=== PATIENT | female | born 1985 | race Caucasian/White ===

== ENCOUNTER 2017-05-06 19:09 | Emergency (ER) | payer MEDICAID ==
[~2017-05-06] VITALS: Ht 165.1 cm; Wt 104.3 kg
[2017-05-06] MEDS ORDERED: cloNIDine HCL 0.1 MG TAB ONE (19:43)
[2017-05-06] MEDS ORDERED: cloNIDine HCL 0.1 MG TAB PO ONE ×2 (20:00→21:30)
[2017-05-06 20:03] LABS: Urine Pregnacy Test Negative (Negative)
[2017-05-06 20:19] LABS: Urine Bacteria NONE SEEN /hpf (None Seen); Urine Blood 3+ /uL (Negative); Urine Specific Gravity 1.016 (1.001-1.035); Urine WBC 17 /hpf (0 - 5)
[2017-05-06 20:25] LABS: Basophils # (auto) 0.1 uL; Hemoglobin 13.6 g/dL (12.2-16.2); Lymphocytes # (auto) 3.3 uL; Monocytes # (auto) 0.7 uL
[2017-05-06 20:28] LABS: Basophils % (auto) 0.9 % (0.0-2.0); Eosinophils # (auto) 0.2 uL; Eosinophils % (auto) 2.1 % (0.0-7.0); Hematocrit 40.2 % (36.0-46.0); Lymphocytes % (auto) 29.5 % (10.0-50.0); Mean Corpuscular Hemoglobin 31.1 pg (28.0-32.0); Mean Corpuscular Hgb Conc. 33.9 g/dL (32.0-36.0); Mean Corpuscular Volume 91.8 fL (80.0-100.0); Monocytes % (auto) 5.9 % (0.0-12.0); Neutrophils # (auto) 6.9 uL; Neutrophils % (auto) 61.6 % (37.0-80.0); Platelet Count (auto) 490 10^3/uL (140-450); Red Blood Cells 4.38 10^6/uL (4.0-5.20); Red Cell Distribution Width 14.1 % (11.8-14.3); White Blood Cell 11.2 10^3/uL (4.4-10.8)
[2017-05-06 20:29] LABS: Alcohol, Urine < 3.0 mg/dL (0-5); Amphetamine Screen, Urine NEGATIVE (NEGATIVE); Barbiturate Scree,Urine NEGATIVE (NEGATIVE); Benzodiazephine Screen, Urine NEGATIVE (NEGATIVE); Cannabinoid Screen, Urine NEGATIVE (NEGATIVE); Cocaine Screen, Urine NEGATIVE (NEGATIVE); Opiate Scree,Urine NEGATIVE (NEGATIVE); Phencyclidine Screen, Urine NEGATIVE (NEGATIVE)
[2017-05-06 20:49] LABS: Alanine Aminotransferase 89 U/L (13-56); Albumin 3.6 g/dL (3.4-5.0); Alkaline Phosphatase 96 U/L (45-117); Anion Gap 10 (5-15); Aspartate Aminotransferase 68 U/L (15-37); BUN/Creatinine Ratio 18.8; Bilirubin, Total 0.1 mg/dL (0.2-1.0); Blood Urea Nitrogen 12 mg/dL (7-18); Calcium 9.2 mg/dL (8.5-10.1); Carbon Dioxide 24 mmol/L (21-32); Chloride 107 mmol/L (98-107); GFR African American 140 mL/min; GFR Non-African American 116 mL/min; Glucose 97 mg/dL (74-106); Potassium 3.9 mmol/L (3.5-5.1); Sodium 141 mmol/L (136-145); Total Protein 7.8 g/dL (6.4-8.2)
[2017-05-06] MEDS ORDERED: SODIUM CHLORIDE 0.9% 1,000 ML IV ONE (21:30)
[2017-05-06] MEDS ORDERED: ONDANSETRON HCL 4 MG/2 ML VIAL IV ONE (21:30)
[2017-05-06] MEDS ORDERED: HYDROmorphone HCL 2 MG/ML VL IM ONE (21:30)
[2017-05-06] MEDS ORDERED: cefTRIAXone 1GM/50ML D5W 50 ML IV ONE (21:30)
[2017-05-06 21:35] VITALS: BP 153/109
== END 2017-05-06 23:43 | disposition home or self-care (01) ==
LOC: ER 19:09
DX: I10 Essential (primary) hypertension (principal); N39.0 Urinary tract infection, site not specified; J02.9 Acute pharyngitis, unspecified; R51 Headache; F17.210 Nicotine dependence, cigarettes, uncomplicated
CPT/HCPCS: 36415; 71020; 80053; 80307; 81001; 81025; 83880; 84443; 84484; 85025; 93005; 96365; 96372; 96375; 99285; J0696; J1170; J2405; J7030

== ENCOUNTER 2019-12-23 10:44 | Emergency (ER) | payer MEDICAID ==
[~2019-12-23] VITALS: Ht 165.1 cm; Wt 104.3 kg
[2019-12-23] MEDS ORDERED: cloNIDine HCL 0.1 MG TAB PO ONE ×2 (11:00→13:15)
[2019-12-23 11:23] LABS: Basophils # (auto) 0.1 10 ^3/uL (0-0.2); Eosinophils # (auto) 0.3 10 ^3/uL (0-0.8); Eosinophils % (auto) 2.8 % (0.0-7.0); Lymphocytes # (auto) 3.8 10 ^3/uL (0.4-5.4); Neutrophils # (auto) 5.7 10 ^3/uL (1.6-8.6); White Blood Cell 10.4 10^3/uL (4.4-10.8)
[2019-12-23 11:25] LABS: Basophils % (auto) 0.7 % (0.0-2.0); Hemoglobin 15.3 g/dL (12.2-16.2); Lymphocytes % (auto) 36.2 % (10.0-50.0); Mean Corpuscular Hemoglobin 30.2 pg (28.0-32.0); Mean Corpuscular Hgb Conc. 33.2 g/dL (32.0-36.0); Mean Corpuscular Volume 90.9 fL (80.0-100.0); Monocytes # (auto) 0.6 10 ^3/uL (0-1.3); Monocytes % (auto) 5.5 % (0.0-12.0); Neutrophils % (auto) 54.8 % (37.0-80.0); Platelet Count (auto) 646 10^3/uL (140-450); Red Blood Cells 5.06 10^6/uL (4.0-5.20); Red Cell Distribution Width 13.8 % (11.8-14.3)
[2019-12-23 11:43] LABS: Albumin 4.3 g/dL (3.4-5.0); Anion Gap 6 (5-15); Blood Urea Nitrogen 13 mg/dL (7-18); Calcium 10.3 mg/dL (8.5-10.1); Carbon Dioxide 26 mmol/L (21-32); Chloride 107 mmol/L (98-107); Glucose 105 mg/dL (74-106); Sodium 139 mmol/L (136-145)
[2019-12-23 11:56] LABS: Alanine Aminotransferase 30 U/L (13-56); Alkaline Phosphatase 89 U/L (45-117); Aspartate Aminotransferase 15 U/L (15-37); BUN/Creatinine Ratio 15.1; Bilirubin, Total 0.2 mg/dL (0.2-1.0); GFR African American 98 mL/min; GFR Non-African American 81 mL/min; Total Protein 8.5 g/dL (6.4-8.2)
[2019-12-23 12:24] LABS: Urine Bacteria FEW /hpf (None Seen); Urine Blood Negative /uL (Negative); Urine Mucus FEW (None Seen); Urine Specific Gravity 1.023 (1.001-1.035); Urine WBC 2 /hpf (0 - 5)
[2019-12-23] MEDS ORDERED: cloNIDine HCL 0.1 MG TAB ONE (13:10)
[2019-12-23] MEDS ORDERED: ACETAMINOPHEN 325 MG TAB PO ONE ×2 (13:11→13:15)
[2019-12-23 14:00] VITALS: BP 155/90
== END 2019-12-23 14:05 | disposition home or self-care (01) ==
LOC: ER 10:44
DX: I16.0 Hypertensive urgency (principal); I10 Essential (primary) hypertension; F17.210 Nicotine dependence, cigarettes, uncomplicated
CPT/HCPCS: 36415; 70450; 80053; 81001; 81025; 84484; 85025; 93005

== ENCOUNTER 2023-04-20 00:25 | Inpatient (IN) | payer MEDICAID ==
[~2023-04-20] VITALS: Ht 165.1 cm; Wt 101.8 kg
[2023-04-20 01:32] LABS: Albumin 3.9 g/dL (3.2-4.8); Alkaline Phosphatase 97 U/L (46-116); Anion Gap 5 (5-15); Aspartate Aminotransferase 21 U/L (13-40); BUN/Creatinine Ratio 9.8 (10.0-20.0); Bilirubin, Total 0.3 mg/dL (0.2-1.0); Blood Urea Nitrogen 28 mg/dL (9-23); Calcium 9.6 mg/dL (8.7-10.4); Carbon Dioxide 30 mmol/L (20-30); Chloride 101 mmol/L (98-107); Sodium 136 mmol/L (136-145); Total Protein 6.6 g/dL (5.7-8.2)
[2023-04-20 01:37] LABS: Alanine Aminotransferase 9 U/L (7-40)
[2023-04-20 01:39] LABS: Potassium 2.9 mmol/L (3.5-5.1)
[2023-04-20 01:48] LABS: Glucose 124 mg/dL (74-106)
[2023-04-20 02:01] LABS: Basophils # (auto) 0.1 10 ^3/uL (0-0.2); Basophils % (auto) 0.4 % (0.0-2.0); Eosinophils # (auto) 0.2 10 ^3/uL (0-0.8); Eosinophils % (auto) 1.3 % (0.0-7.0); Hematocrit 41.1 % (36.0-46.0); Hemoglobin 13.6 g/dL (12.2-16.2); Lymphocytes # (auto) 3.3 10 ^3/uL (0.4-5.4); Lymphocytes % (auto) 24.2 % (10.0-50.0); Mean Corpuscular Hemoglobin 30.4 pg (28.0-32.0); Mean Corpuscular Hgb Conc. 33.1 g/dL (32.0-36.0); Mean Corpuscular Volume 91.9 fL (80.0-100.0); Monocytes # (auto) 0.8 10 ^3/uL (0-1.3); Monocytes % (auto) 5.7 % (0.0-12.0); Neutrophils # (auto) 9.4 10 ^3/uL (1.6-8.6); Neutrophils % (auto) 68.4 % (37.0-80.0); Nucleated Red Blood Cells % 0.2 %; Red Blood Cells 4.48 10^6/uL (4.0-5.20); Red Cell Distribution Width 16.3 % (11.8-14.3); White Blood Cell 13.7 10^3/uL (4.4-10.8)
[2023-04-20] MEDS ORDERED: POTASSIUM EFFERVESENT TAB 25 MEQ GT ONE (02:30)
[2023-04-20] MEDS ORDERED: MORPHINE SULFATE 4 MG/ML SYR/VIAL IV ONE (02:45)
[2023-04-20 03:27] VITALS: PULSE 94; RESP 18; O2SAT 97
[2023-04-20] MEDS ORDERED: ONDANSETRON HCL 4 MG/2 ML VIAL IV ONE (03:45)
[2023-04-20 08:00] VITALS: PULSE 84; RESP 14; O2SAT 97
[2023-04-20] MEDS ORDERED: DOCUSATE SOD 100 MG CAP PO PRN (10:30)
[2023-04-20] MEDS: SODIUM CHLORIDE 0.9% 1,000 ML IV SCH ×3 (11:06→20:08)
[2023-04-20] MEDS: cefTRIAXone 1GM/50ML D5W 50 ML IV SCH (12:11)
[2023-04-20] MEDS: MORPHINE SULFATE INJ 2 MG/ml SYRG IV PRN ×2 (12:12→23:15)
[2023-04-20] MEDS: DOXYCYCLINE 100MG/250ML 250 ML IV SCH (12:38)
[2023-04-20] MEDS ORDERED: ENOXAPARIN SOD 100 MG/1 ML SYRINGE SC SCH (14:07)
[2023-04-20 15:46] LABS: Magnesium 1.8 mg/dL (1.6-2.6)
[2023-04-20 15:48] LABS: Phosphorus 5.3 mg/dL (2.4-5.1)
[2023-04-20] MEDS ORDERED: LORazepam 2MG/ML-1ML VIAL IV PRN (19:15)
[2023-04-20 19:29] VITALS: PULSE 99; RESP 17; O2SAT 99
[2023-04-20] MEDS: METOPROLOL TARTRATE 25 MG TAB PO SCH (23:14)
[2023-04-20] MEDS: ONDANSETRON HCL 4 MG/2 ML VIAL IV PRN (23:14)
[2023-04-21] VITALS (10 sets, daily range): BP systolic 135–192; BP diastolic 92–110; PULSE 65–119; RESP 17–21; TEMP 97.8–98.4; O2SAT 97–100
[2023-04-21] MEDS: DOXYCYCLINE 100MG/250ML 250 ML IV SCH (00:53)
[2023-04-21] MEDS: ONDANSETRON HCL 4 MG/2 ML VIAL IV PRN (04:32)
[2023-04-21] MEDS: MORPHINE SULFATE INJ 2 MG/ml SYRG IV PRN ×2 (04:33→17:06)
[2023-04-21 05:38] LABS: Basophils # (auto) 0.1 10 ^3/uL (0-0.2); Basophils % (auto) 0.5 % (0.0-2.0); Eosinophils # (auto) 0.2 10 ^3/uL (0-0.8); Eosinophils % (auto) 1.3 % (0.0-7.0); Hematocrit 34.4 % (36.0-46.0); Hemoglobin 11.4 g/dL (12.2-16.2); Lymphocytes # (auto) 3.7 10 ^3/uL (0.4-5.4); Lymphocytes % (auto) 27.8 % (10.0-50.0); Mean Corpuscular Hemoglobin 31.2 pg (28.0-32.0); Mean Corpuscular Hgb Conc. 33.2 g/dL (32.0-36.0); Mean Corpuscular Volume 93.9 fL (80.0-100.0); Monocytes # (auto) 0.6 10 ^3/uL (0-1.3); Monocytes % (auto) 4.5 % (0.0-12.0); Neutrophils # (auto) 8.8 10 ^3/uL (1.6-8.6); Neutrophils % (auto) 65.9 % (37.0-80.0); Nucleated Red Blood Cells % 0.1 %; Red Blood Cells 3.66 10^6/uL (4.0-5.20); White Blood Cell 13.4 10^3/uL (4.4-10.8)
[2023-04-21 05:54] LABS: Alanine Aminotransferase 14 U/L (7-40); Albumin 3.2 g/dL (3.2-4.8); Alkaline Phosphatase 81 U/L (46-116); Anion Gap 8 (5-15); Aspartate Aminotransferase 9 U/L (13-40); BUN/Creatinine Ratio 11.9 (10.0-20.0); Bilirubin, Total 0.3 mg/dL (0.2-1.0); Calcium 8.5 mg/dL (8.5-10.1); Carbon Dioxide 28 mmol/L (20-30); Chloride 103 mmol/L (98-107); Cholesterol 193 mg/dL (< 200); Glucose 108 mg/dL (74-106); HDL Cholesterol 29 mg/dL (40-59); LDL Cholesterol 114 mg/dL (< 100); Potassium 3.3 mmol/L (3.5-5.1); Sodium 139 mmol/L (136-145); Total Protein 5.3 g/dL (5.7-8.2); Triglycerides 258 mg/dL (< 150)
[2023-04-21 06:08] LABS: Blood Urea Nitrogen 47 mg/dL (9-23)
[2023-04-21] MEDS ORDERED: HEPARIN SODIUM (PORCINE) 5000 UNITS/ML 1ML VIAL SC ONE (06:45)
[2023-04-21 07:06] LABS: RPR Non Reactive (Non Reactive)
[2023-04-21] MEDS ORDERED: cefTRIAXone 1GM/50ML D5W 50 ML IV SCH (09:00)
[2023-04-21] MEDS ORDERED: ATOR20TA50 PO (09:36)
[2023-04-21] MEDS ORDERED: METO-159 PO (09:36)
[2023-04-21] MEDS ORDERED: HYDR-4798 PO (09:36)
[2023-04-21] MEDS ORDERED: TORS20TA19 PO (09:36)
[2023-04-21] MEDS ORDERED: GABA-1250 PO (09:36)
[2023-04-21] MEDS ORDERED: LOSA100T58 PO (09:36)
[2023-04-21 09:43] LABS: Urine Bacteria FEW /hpf (None Seen); Urine Blood 2+ /uL (Negative); Urine Clarity HAZY (Clear); Urine Color Colorless (Yellow); Urine Protein, UAD 2+ (Negative); Urine Specific Gravity 1.012 (1.001-1.035); Urine Urobilinogen Normal (Negative); Urine WBC 13 /hpf (0 - 5); Urine pH 5.5 (5.0-8.0)
[2023-04-21] MEDS: OXYMETAZOLINE HCL 0.05 % NASAL SPRAY 15ML EACHNOSTRI SCH ×2 (10:00→22:29)
[2023-04-21] MEDS ORDERED: AZITHROMYCIN 500MG/ 250ML 250 ML IV SCH (10:00)
[2023-04-21] MEDS ORDERED: POTASSIUM EFFERVESENT TAB 25 MEQ PO ONE (10:15)
[2023-04-21] MEDS: POLYETHYLENE GLYCOL 17 GM PWDR PO SCH (10:27)
[2023-04-21] MEDS: METOPROLOL TARTRATE 25 MG TAB PO SCH ×2 (10:27→21:41)
[2023-04-21] MEDS: ASPirin 81 mg TAB PO SCH (10:27)
[2023-04-21 10:41] LABS: Amphetamine Screen, Urine Neg (NEGATIVE); Barbiturate Scree,Urine Neg (NEGATIVE); Benzodiazephine Screen, Urine Neg (NEGATIVE); Cocaine Screen, Urine Neg (NEGATIVE); Opiate Scree,Urine Pos (NEGATIVE); Phencyclidine Screen, Urine Neg (NEGATIVE)
[2023-04-21 10:42] LABS: Cannabinoid Screen, Urine Neg (NEGATIVE)
[2023-04-21 10:43] LABS: Triglycerides 251 mg/dL (< 150)
[2023-04-21 10:44] LABS: LDL Cholesterol 113 mg/dL (< 100)
[2023-04-21 10:45] LABS: Cholesterol 189 mg/dL (< 200); HDL Cholesterol 29 mg/dL (40-59)
[2023-04-21 11:11] LABS: Protein, Urine 126.9 mg/dL (0.0-11.9)
[2023-04-21 11:13] LABS: Creatinine, Urine 89.37 mg/dL (30.0-125.0); Urine Protein/Creatinine Ratio 1.42
[2023-04-21] MEDS: HYDROcodone-ACET 10/325MG TAB PO PRN ×2 (11:54→18:04)
[2023-04-21] MEDS ORDERED: hydrALAZINE HCL 20 MG/ML VL IV PRN (14:45)
[2023-04-21] MEDS: SODIUM CHLORIDE 0.9% 1,000 ML IV SCH ×2 (15:26→22:30)
[2023-04-21] MEDS: hydrALAZINE HCL 20 MG/ML VL IV PRN ×2 (15:29→21:41)
[2023-04-21] MEDS: cefTRIAXone 1GM/50ML D5W 50 ML IV SCH (15:30)
[2023-04-21] MEDS ORDERED: amLODIPine BESYLATE 5 MG TAB PO ONE (15:45)
[2023-04-21] MEDS: HEPARIN SODIUM (PORCINE) 5000 UNITS/ML 1ML VIAL SC SCH (20:19)
[2023-04-21] MEDS: ATORVASTATIN 20 MG TAB PO SCH (21:41)
[2023-04-21] MEDS: TEMAZEPAM 15 MG CAP PO PRN (23:36)
[2023-04-22] VITALS (9 sets, daily range): BP systolic 171–198; BP diastolic 95–114; PULSE 79–114; RESP 18–20; TEMP 98.1–98.6; O2SAT 95–97
[2023-04-22] MEDS ORDERED: amLODIPine BESYLATE 5 MG TAB PO ONE
[2023-04-22] MEDS: HYDROcodone-ACET 10/325MG TAB PO PRN ×3 (01:31→18:51)
[2023-04-22] MEDS: hydrALAZINE HCL 20 MG/ML VL IV PRN (05:17)
[2023-04-22 05:22] LABS: Basophils # (auto) 0.1 10 ^3/uL (0-0.2); Basophils % (auto) 0.5 % (0.0-2.0); Eosinophils # (auto) 0.1 10 ^3/uL (0-0.8); Eosinophils % (auto) 0.9 % (0.0-7.0); Hemoglobin 12.1 g/dL (12.2-16.2); Lymphocytes # (auto) 2.9 10 ^3/uL (0.4-5.4); Mean Corpuscular Hemoglobin 31.2 pg (28.0-32.0); Mean Corpuscular Hgb Conc. 33.7 g/dL (32.0-36.0); Mean Corpuscular Volume 92.5 fL (80.0-100.0); Monocytes # (auto) 0.6 10 ^3/uL (0-1.3); Monocytes % (auto) 5.3 % (0.0-12.0); Neutrophils # (auto) 7.8 10 ^3/uL (1.6-8.6); Neutrophils % (auto) 68.3 % (37.0-80.0); Red Blood Cells 3.89 10^6/uL (4.0-5.20); Red Cell Distribution Width 16.6 % (11.8-14.3); White Blood Cell 11.4 10^3/uL (4.4-10.8)
[2023-04-22 05:30] LABS: Chloride 105 mmol/L (98-107); Potassium 3.3 mmol/L (3.5-5.1); Sodium 140 mmol/L (136-145)
[2023-04-22 05:31] LABS: Anion Gap 8 (5-15); Calcium 9.5 mg/dL (8.7-10.4); Carbon Dioxide 27 mmol/L (20-30)
[2023-04-22 05:36] LABS: BUN/Creatinine Ratio 11.7 (10.0-20.0); Glucose 105 mg/dL (74-106)
[2023-04-22 05:38] LABS: Blood Urea Nitrogen 34 mg/dL (9-23)
[2023-04-22] MEDS: HEPARIN SODIUM (PORCINE) 5000 UNITS/ML 1ML VIAL SC SCH ×2 (06:28→18:57)
[2023-04-22] MEDS: SODIUM CHLORIDE 0.9% 1,000 ML IV SCH ×2 (07:45→14:30)
[2023-04-22 08:06] LABS: Complement C3 208 mg/dL (82-167); Haptoglobin 75 mg/dL (33-278)
[2023-04-22] MEDS: METOPROLOL TARTRATE 25 MG TAB PO SCH ×2 (08:36→22:05)
[2023-04-22] MEDS ORDERED: ENOXAPARIN SOD 40 MG/0.4 ML SYRINGE SC SCH (10:00)
[2023-04-22] MEDS: MORPHINE SULFATE INJ 2 MG/ml SYRG IV PRN ×2 (10:00→22:01)
[2023-04-22] MEDS: OXYMETAZOLINE HCL 0.05 % NASAL SPRAY 15ML EACHNOSTRI SCH ×2 (10:00→22:00)
[2023-04-22] MEDS: POLYETHYLENE GLYCOL 17 GM PWDR PO SCH (10:00)
[2023-04-22] MEDS ORDERED: amLODIPine BESYLATE 5 MG TAB PO SCH ×2 (10:00)
[2023-04-22] MEDS: amLODIPine BESYLATE 5 MG TAB PO SCH (10:01)
[2023-04-22] MEDS: ASPirin 81 mg TAB PO SCH (10:01)
[2023-04-22] MEDS ORDERED: hydrALAZINE HCL 25 MG TAB PO PRN ×2 (10:45→13:30)
[2023-04-22] MEDS ORDERED: ERGOCALCIFEROL 50,000 UNIT(1.25MG) CAP PO SCH (10:45)
[2023-04-22 11:08] LABS: Anti-Nuclear Antibody Direct Negative (Negative)
[2023-04-22] MEDS: cefTRIAXone 1GM/50ML D5W 50 ML IV SCH (11:43)
[2023-04-22] MEDS ORDERED: hydrALAZINE HCL 25 MG TAB PO ONE ×2 (14:30→17:45)
[2023-04-22] MEDS: cloNIDine HCL 0.1 MG TAB PO PRN ×2 (16:29→22:03)
[2023-04-22] MEDS ORDERED: hydrALAZINE HCL 20 MG/ML VL IV ONE (17:45)
[2023-04-22] MEDS: hydrALAZINE HCL 25 MG TAB PO SCH (22:04)
[2023-04-22] MEDS: ATORVASTATIN 20 MG TAB PO SCH (22:04)
[2023-04-23] MEDS: hydrALAZINE HCL 20 MG/ML VL IV PRN (02:49)
[2023-04-23] MEDS: MORPHINE SULFATE INJ 2 MG/ml SYRG IV PRN ×4 (03:26→21:12)
[2023-04-23 05:00] VITALS: BP 160/96; PULSE 85; RESP 17; TEMP 97.9; O2SAT 95
[2023-04-23] MEDS: hydrALAZINE HCL 25 MG TAB PO SCH ×3 (05:57→22:57)
[2023-04-23] MEDS: HEPARIN SODIUM (PORCINE) 5000 UNITS/ML 1ML VIAL SC SCH ×2 (06:00→18:49)
[2023-04-23 08:00] VITALS: BP 178/108; PULSE 88; PULSE 93; PULSE 98; RESP 18; TEMP 97.9; O2SAT 100; O2SAT 98
[2023-04-23 09:17] LABS: Alanine Aminotransferase 14 U/L (7-40); Albumin 4.2 g/dL (3.2-4.8); Alkaline Phosphatase 97 U/L (46-116); Anion Gap 8 (5-15); Aspartate Aminotransferase 20 U/L (13-40); BUN/Creatinine Ratio 11.1 (10.0-20.0); Blood Urea Nitrogen 25 mg/dL (9-23); Calcium 9.9 mg/dL (8.5-10.1); Carbon Dioxide 26 mmol/L (20-30); Chloride 107 mmol/L (98-107); Glucose 109 mg/dL (74-106); Potassium 3.6 mmol/L (3.5-5.1); Sodium 141 mmol/L (136-145)
[2023-04-23 09:18] LABS: Bilirubin, Total 0.6 mg/dL (0.2-1.0)
[2023-04-23] MEDS: POLYETHYLENE GLYCOL 17 GM PWDR PO SCH (09:23)
[2023-04-23] MEDS: ASPirin 81 mg TAB PO SCH (09:24)
[2023-04-23] MEDS: METOPROLOL TARTRATE 25 MG TAB PO SCH (09:24)
[2023-04-23] MEDS: amLODIPine BESYLATE 5 MG TAB PO SCH (09:25)
[2023-04-23] MEDS: OXYMETAZOLINE HCL 0.05 % NASAL SPRAY 15ML EACHNOSTRI SCH ×2 (10:00→22:58)
[2023-04-23] MEDS ORDERED: hydrALAZINE HCL 25 MG TAB PO SCH ×2 (10:45→12:00)
[2023-04-23] MEDS: HYDROcodone-ACET 10/325MG TAB PO PRN ×2 (11:15→17:33)
[2023-04-23] MEDS: cefTRIAXone 1GM/50ML D5W 50 ML IV SCH (11:20)
[2023-04-23] MEDS: SODIUM CHLORIDE 0.9% 1,000 ML IV SCH (11:20)
[2023-04-23] MEDS ORDERED: METOPROLOL TARTRATE 1MG/1ML-5ML VIAL IV ONE (12:30)
[2023-04-23 13:00] VITALS: BP 192/115; PULSE 79; RESP 18; TEMP 98.7; O2SAT 99
[2023-04-23 17:00] VITALS: BP 172/112; PULSE 101; RESP 18; TEMP 98.4; O2SAT 95
[2023-04-23 20:00] VITALS: PULSE 91; PULSE 95; RESP 17; O2SAT 93
[2023-04-23] MEDS: CLOPIDOGREL BISULFATE 75 MG TAB PO SCH (20:23)
[2023-04-23 22:00] VITALS: BP 180/99; PULSE 95; RESP 17; TEMP 98; O2SAT 93
[2023-04-23] MEDS: METOPROLOL TARTRATE 50 MG TAB PO SCH (22:50)
[2023-04-23] MEDS: ATORVASTATIN 20 MG TAB PO SCH (22:51)
[2023-04-24] VITALS (31 sets, daily range): BP systolic 134–211; BP diastolic 80–127; PULSE 77–116; RESP 12–23; TEMP 98–98.8; O2SAT 93–100
[2023-04-24] MEDS: hydrALAZINE HCL 25 MG TAB PO SCH ×3 (05:49→21:13)
[2023-04-24] MEDS: HEPARIN SODIUM (PORCINE) 5000 UNITS/ML 1ML VIAL SC SCH ×2 (05:50→18:59)
[2023-04-24] MEDS ORDERED: FLUMAZENIL 0.1 MG/ML INJ 10ML MDV IV ONE (08:34)
[2023-04-24] MEDS ORDERED: NALOXONE HCL 0.4 MG/ML VIAL ONE (08:34)
[2023-04-24] MEDS ORDERED: fentaNYL CITRATE 100 MCG/2 ML VL IV ONE ×5 (08:45→10:32)
[2023-04-24] MEDS ORDERED: LIDOCAINE VISCOUS 2% 15ML UD PO ONE (08:45)
[2023-04-24] MEDS ORDERED: MIDAZOLAM HCL 2MG/2ML 2ml VIAL (1mg/ml) IV ONE ×8 (08:45→10:35)
[2023-04-24 09:15] LABS: Hepatitis B Surface Antigen Negative (Negative)
[2023-04-24 09:36] LABS: Hepatitis C Antibody Negative (Negative)
[2023-04-24] MEDS: hydrALAZINE HCL 20 MG/ML VL IV PRN (09:42)
[2023-04-24] MEDS ORDERED: hydrALAZINE HCL 20 MG/ML VL ONE (09:58)
[2023-04-24] MEDS ORDERED: hydrALAZINE HCL 20 MG/ML VL IV ONE ×3 (09:59→10:24)
[2023-04-24] MEDS: OXYMETAZOLINE HCL 0.05 % NASAL SPRAY 15ML EACHNOSTRI SCH ×2 (10:00→21:15)
[2023-04-24] MEDS ORDERED: MIDAZOLAM HCL 2MG/2ML 2ml VIAL (1mg/ml) ONE ×5 (10:10→10:46)
[2023-04-24] MEDS ORDERED: fentaNYL CITRATE 100 MCG/2 ML VL ONE ×2 (10:21→10:40)
[2023-04-24] MEDS: cloNIDine HCL 0.1 MG TAB PO PRN (11:47)
[2023-04-24] MEDS: ASPirin 81 mg TAB PO SCH (12:41)
[2023-04-24] MEDS: METOPROLOL TARTRATE 50 MG TAB PO SCH ×2 (12:41→21:14)
[2023-04-24] MEDS: CLOPIDOGREL BISULFATE 75 MG TAB PO SCH (12:41)
[2023-04-24] MEDS: POLYETHYLENE GLYCOL 17 GM PWDR PO SCH (12:42)
[2023-04-24] MEDS: MORPHINE SULFATE INJ 2 MG/ml SYRG IV PRN ×2 (12:42→18:53)
[2023-04-24] MEDS: amLODIPine BESYLATE 5 MG TAB PO SCH (13:18)
[2023-04-24] MEDS: cefTRIAXone 1GM/50ML D5W 50 ML IV SCH (13:27)
[2023-04-24] MEDS ORDERED: cloNIDine HCL 0.1 MG TAB PO PRN (14:45)
[2023-04-24] MEDS: HYDROcodone-ACET 10/325MG TAB PO PRN ×2 (14:56→21:14)
[2023-04-24] MEDS: TEMAZEPAM 15 MG CAP PO PRN (21:14)
[2023-04-24] MEDS: ATORVASTATIN 20 MG TAB PO SCH (21:14)
[2023-04-25 05:00] VITALS: BP 146/83; PULSE 70; RESP 17; TEMP 98.2; O2SAT 97
[2023-04-25 06:03] LABS: Basophils # (auto) 0 10 ^3/uL (0-0.2); Basophils % (auto) 0.6 % (0.0-2.0); Eosinophils # (auto) 0.1 10 ^3/uL (0-0.8); Eosinophils % (auto) 1.8 % (0.0-7.0); Hemoglobin 12.2 g/dL (12.2-16.2); Lymphocytes # (auto) 3.7 10 ^3/uL (0.4-5.4); Lymphocytes % (auto) 49.4 % (10.0-50.0); Mean Corpuscular Hemoglobin 30.8 pg (28.0-32.0); Mean Corpuscular Hgb Conc. 32.8 g/dL (32.0-36.0); Mean Corpuscular Volume 93.9 fL (80.0-100.0); Monocytes # (auto) 0.5 10 ^3/uL (0-1.3); Monocytes % (auto) 7.3 % (0.0-12.0); Neutrophils # (auto) 3.1 10 ^3/uL (1.6-8.6); Neutrophils % (auto) 40.9 % (37.0-80.0); Red Blood Cells 3.94 10^6/uL (4.0-5.20); Red Cell Distribution Width 15.9 % (11.8-14.3); White Blood Cell 7.5 10^3/uL (4.4-10.8)
[2023-04-25] MEDS: HEPARIN SODIUM (PORCINE) 5000 UNITS/ML 1ML VIAL SC SCH (06:03)
[2023-04-25] MEDS: hydrALAZINE HCL 25 MG TAB PO SCH ×2 (06:03→15:07)
[2023-04-25 06:30] LABS: Calcium 9.4 mg/dL (8.7-10.4); Chloride 103 mmol/L (98-107); Potassium 3.5 mmol/L (3.5-5.1); Sodium 139 mmol/L (136-145)
[2023-04-25 06:31] LABS: Anion Gap 10 (5-15); Carbon Dioxide 26 mmol/L (20-30)
[2023-04-25 06:36] LABS: BUN/Creatinine Ratio 12.1 (10.0-20.0); Blood Urea Nitrogen 30 mg/dL (9-23); Glucose 93 mg/dL (74-106)
[2023-04-25] MEDS ORDERED: PROPOFOL 10 MG/ML 20 ML IV ONE ×2 (07:46→07:55)
[2023-04-25] MEDS ORDERED: LIDOCAINE 2% (LOCAL ANESTH.) PF 5ml SDV ONE (07:46)
[2023-04-25 08:00] VITALS: RESP 17
[2023-04-25 08:09] VITALS: PULSE 96; RESP 21; O2SAT 100
[2023-04-25] MEDS: HYDROcodone-ACET 10/325MG TAB PO PRN (09:18)
[2023-04-25] MEDS: ASPirin 81 mg TAB PO SCH (09:18)
[2023-04-25] MEDS: amLODIPine BESYLATE 5 MG TAB PO SCH (09:20)
[2023-04-25] MEDS: METOPROLOL TARTRATE 50 MG TAB PO SCH (09:20)
[2023-04-25] MEDS: CLOPIDOGREL BISULFATE 75 MG TAB PO SCH (09:20)
[2023-04-25] MEDS: POLYETHYLENE GLYCOL 17 GM PWDR PO SCH (09:21)
[2023-04-25] MEDS: OXYMETAZOLINE HCL 0.05 % NASAL SPRAY 15ML EACHNOSTRI SCH (10:00)
[2023-04-25 10:30] VITALS: BP 147/96; PULSE 68; RESP 16; TEMP 98.2; O2SAT 94
[2023-04-25] MEDS: MORPHINE SULFATE INJ 2 MG/ml SYRG IV PRN (10:53)
[2023-04-25] MEDS ORDERED: CLOP75TA70 PO (12:25)
[2023-04-25] MEDS ORDERED: ASPI-325 PO (12:25)
[2023-04-25] MEDS ORDERED: ATOR20TA50 PO (12:25)
[2023-04-25] MEDS ORDERED: AMLO1TAB23 PO (12:32)
[2023-04-25 13:00] VITALS: BP 150/95; PULSE 75; RESP 16; TEMP 98.1; O2SAT 97
[2023-04-25 15:51] LABS: Dilute Prothrombin Time(dPT) 36.2 sec (0.0-47.6); Lupus Interpretation Comment: (.); PTT-LA 40.9 sec (0.0-43.5); Thrombin Time 15.7 sec (0.0-23.0); dRVVT 42.2 sec (0.0-47.0)
[2023-04-25 16:06] LABS: Anti-Centromere B Antibody <0.2 AI (0.0-0.9); Anti-Jo-1 Antibody <0.2 AI (0.0-0.9); Anti-dsDNA Antibody 1 IU/mL (0-9); Antichromatin Antibody <0.2 AI (0.0-0.9); Antiscleroderma-70 Antibody <0.2 AI (0.0-0.9); RNP Antibody <0.2 AI (0.0-0.9); Sjogren's Anti-SS-A Antibody <0.2 AI (0.0-0.9); Sjogren's Anti-SS-B Antibody <0.2 AI (0.0-0.9); Smith Antibody <0.2 AI (0.0-0.9)
[2023-04-25 19:06] LABS: Anticardiolipin IgG Antibody <9 GPL U/mL (0-14); Anticardiolipin IgM Antibody <9 MPL U/mL (0-12)
[2023-04-26 13:07] LABS: Cytoplasmic (C-ANCA) <1:20 titer (Neg:<1:20); Perinuclear (P-ANCA) <1:20 titer (Neg:<1:20)
[2023-04-26 18:06] LABS: Antimyeloperoxidase (MPO) Ab <0.2 units (0.0-0.9); Antiproteinase 3 (PR-3) Ab <0.2 units (0.0-0.9)
== END 2023-04-25 15:30 | disposition home or self-care (01) | DRG 45 ==
LOC: EDBD 00:25 → ER 00:25 → TELE 10:36 → TELE-CENTR 04-21 08:11
PROVIDERS: ADMIT Nurse Practitioner Family; ATTEND Internal Medicine Pulmonary Disease
PROC: B246ZZ4 Ultrasonography of Right and Left Heart, Transesophageal (ICD-10-PCS; principal; 2023-04-25 07:45)
DX: I63.9 Cerebral infarction, unspecified (principal); N17.0 Acute kidney failure with tubular necrosis; I21.A1 Myocardial infarction type 2; G40.209 Localization-related (focal) (partial) symptomatic epilepsy and epileptic syndromes with complex partial seizures, not intractable, without status epilepticus; G81.94 Hemiplegia, unspecified affecting left nondominant side; R55 Syncope and collapse; I16.1 Hypertensive emergency; D72.829 Elevated white blood cell count, unspecified; E78.5 Hyperlipidemia, unspecified; E87.6 Hypokalemia; N18.9 Chronic kidney disease, unspecified; K59.00 Constipation, unspecified; F41.9 Anxiety disorder, unspecified; E03.9 Hypothyroidism, unspecified; E55.9 Vitamin D deficiency, unspecified; E66.01 Morbid (severe) obesity due to excess calories; F41.0 Panic disorder [episodic paroxysmal anxiety]; I12.9 Hypertensive chronic kidney disease with stage 1 through stage 4 chronic kidney disease, or unspecified chronic kidney disease; N39.0 Urinary tract infection, site not specified; Z68.37 Body mass index [BMI] 37.0-37.9, adult; Z82.3 Family history of stroke; Z82.49 Family history of ischemic heart disease and other diseases of the circulatory system; Z71.6 Tobacco abuse counseling; Z72.0 Tobacco use
CPT/HCPCS: 36415; 70450; 70551; 71045; 71250; 74176; 76775; 80048; 80053; 80061; 80307; 81001; 81241; 82306; 82550; 82570; 82607; 83010; 83036; 83516; 83520; 83735; 83880; 83970; 84100; 84132; 84156; 84300; 84443; 84484; 84702; 85025; 85301; 85302; 85305; 85306; 85379; 85613; 85670; 85705; 85732; 86038; 86147; 86160; 86225; 86235; 86256; 86592; 86803; 87040; 87340; 93005; 93312; 93886; 95819; 97163; 99152; 99153; G0378; J0696; J2001; J2250; J2405; J2704; J3490

== ENCOUNTER 2023-06-18 14:07 | Emergency (ER) | payer MEDICAID, OTHER ==
[~2023-06-18] VITALS: Ht 167.6 cm; Wt 100.0 kg
[~2023-06-18 14:07] MED LIST: AMLO1TAB23 PO; ASPI-325 PO; ATOR20TA50 PO; CLOP75TA70 PO; GABA-1250 PO; HYDR-4798 PO; LOSA100T58 PO; METO-159 PO; TORS20TA19 PO
[2023-06-18 14:30] VITALS: BP 159/100; PULSE 84; RESP 18; O2SAT 99
[2023-06-18 15:39] LABS: Basophils # (auto) 0 10 ^3/uL (0-0.2); Basophils % (auto) 0.3 % (0.0-2.0); Eosinophils # (auto) 0.1 10 ^3/uL (0-0.8); Eosinophils % (auto) 1.1 % (0.0-7.0); Hematocrit 39.4 % (36.0-46.0); Hemoglobin 12.7 g/dL (12.2-16.2); Lymphocytes # (auto) 2.1 10 ^3/uL (0.4-5.4); Lymphocytes % (auto) 16.8 % (10.0-50.0); Mean Corpuscular Hemoglobin 30.3 pg (28.0-32.0); Mean Corpuscular Hgb Conc. 32.2 g/dL (32.0-36.0); Mean Corpuscular Volume 94.2 fL (80.0-100.0); Monocytes # (auto) 1.2 10 ^3/uL (0-1.3); Monocytes % (auto) 9.6 % (0.0-12.0); Neutrophils % (auto) 72.2 % (37.0-80.0); Red Blood Cells 4.18 10^6/uL (4.0-5.20); Red Cell Distribution Width 13.9 % (11.8-14.3); White Blood Cell 12.5 10^3/uL (4.4-10.8)
[2023-06-18 15:55] LABS: INR 0.97 (0.9-1.15); Prothrombin Time 10.2 sec (9.3-11.8)
[2023-06-18 16:02] LABS: Alanine Aminotransferase 63 U/L (7-40); Albumin 4.3 g/dL (3.2-4.8); Alkaline Phosphatase 122 U/L (46-116); Anion Gap 7 (5-15); Aspartate Aminotransferase 57 U/L (13-40); BUN/Creatinine Ratio 13.9 (10.0-20.0); Bilirubin, Total 0.5 mg/dL (0.2-1.0); Blood Urea Nitrogen 27 mg/dL (9-23); Calcium 10.1 mg/dL (8.5-10.1); Carbon Dioxide 23 mmol/L (20-30); Chloride 107 mmol/L (98-107); Glucose 92 mg/dL (74-106); Sodium 137 mmol/L (136-145); Total Protein 6.6 g/dL (5.7-8.2)
[2023-06-18 16:20] LABS: Potassium 5.7 mmol/L (3.5-5.1)
[2023-06-18] MEDS ORDERED: IBUPROFEN 600 MG TAB PO ONE (17:00)
[2023-06-18] MEDS ORDERED: CYCLOBENZAPRINE HCL 10 MG TAB PO ONE (17:15)
[2023-06-18] MEDS ORDERED: CYCL-837 PO (17:59)
== END 2023-06-18 18:34 | disposition left against medical advice (07) ==
LOC: ER 14:07 → EDBD 14:07 → ER 18:34
DX: S62.91XA Unspecified fracture of right hand, initial encounter for closed fracture (principal); R10.2 Pelvic and perineal pain; S30.1XXA Contusion of abdominal wall, initial encounter; S20.219A Contusion of unspecified front wall of thorax, initial encounter; S00.83XA Contusion of other part of head, initial encounter; S90.31XA Contusion of right foot, initial encounter; S90.01XA Contusion of right ankle, initial encounter; F17.210 Nicotine dependence, cigarettes, uncomplicated; V43.52XA Car driver injured in collision with other type car in traffic accident, initial encounter; Y93.89 Activity, other specified; Y92.488 Other paved roadways as the place of occurrence of the external cause; Y99.8 Other external cause status
CPT/HCPCS: 29125; 36415; 70450; 71045; 72125; 73110; 73130; 73590; 73610; 73630; 74176; 80053; 83690; 84132; 84484; 84702; 85025; 85610

== ENCOUNTER 2023-09-18 03:45 | Emergency (ER) | payer MEDICAID, OTHER ==
[~2023-09-18] VITALS: Ht 165.1 cm; Wt 104.5 kg
[~2023-09-18 03:45] MED LIST changes: +CYCL-837 PO
[2023-09-18 04:05] VITALS: PULSE 95; RESP 20; O2SAT 96
[2023-09-18 04:22] LABS: Basophils # (auto) 0.1 10 ^3/uL (0-0.2); Monocytes # (auto) 0.9 10 ^3/uL (0-1.3)
[2023-09-18 04:24] LABS: Basophils % (auto) 0.7 % (0.0-2.0); Eosinophils # (auto) 0.3 10 ^3/uL (0-0.8); Eosinophils % (auto) 1.5 % (0.0-7.0); Hematocrit 44.5 % (36.0-46.0); Hemoglobin 14.7 g/dL (12.2-16.2); Lymphocytes % (auto) 17.9 % (10.0-50.0); Mean Corpuscular Hemoglobin 29.6 pg (28.0-32.0); Mean Corpuscular Hgb Conc. 33.1 g/dL (32.0-36.0); Mean Corpuscular Volume 89.3 fL (80.0-100.0); Monocytes % (auto) 5.2 % (0.0-12.0); Neutrophils # (auto) 12.6 10 ^3/uL (1.6-8.6); Neutrophils % (auto) 74.7 % (37.0-80.0); Red Blood Cells 4.98 10^6/uL (4.0-5.20); Red Cell Distribution Width 14.4 % (11.8-14.3); White Blood Cell 16.9 10^3/uL (4.4-10.8)
[2023-09-18 04:39] LABS: Alanine Aminotransferase 14 U/L (7-40); Albumin 4.9 g/dL (3.2-4.8); Alkaline Phosphatase 112 U/L (46-116); Anion Gap 10 (5-15); Aspartate Aminotransferase 13 U/L (13-40); BUN/Creatinine Ratio 6.5 (10.0-20.0); Blood Urea Nitrogen 10 mg/dL (9-23); Calcium 11.2 mg/dL (8.7-10.4); Carbon Dioxide 23 mmol/L (20-30); Chloride 104 mmol/L (98-107); Glucose 112 mg/dL (74-106); Lipase 39 U/L (12-53); Potassium 3.5 mmol/L (3.5-5.1); Sodium 137 mmol/L (136-145)
[2023-09-18 04:40] LABS: Bilirubin, Total 0.3 mg/dL (0.2-1.0)
[2023-09-18 06:40] LABS: INR 0.99 (0.9-1.15); Partial Thromboplastin Time 32.5 SEC (24.5-34.5); Prothrombin Time 10.4 sec (9.3-11.8)
== END 2023-09-18 07:58 | disposition left against medical advice (07) ==
LOC: ER 03:45
DX: O20.8 Other hemorrhage in early pregnancy (principal); R10.2 Pelvic and perineal pain; D72.829 Elevated white blood cell count, unspecified; F17.210 Nicotine dependence, cigarettes, uncomplicated; I10 Essential (primary) hypertension; Z3A.08 8 weeks gestation of pregnancy
CPT/HCPCS: 36415; 80053; 83690; 84702; 85025; 85610; 85730

== ENCOUNTER 2024-11-13 11:49 | Inpatient (IN) | payer MEDICAID ==
[~2024-11-13] VITALS: Ht 177.8 cm; Wt 95.0 kg
[~2024-11-13 11:49] MED LIST changes: +LOSA-535 PO; -LOSA100T58 PO
--- NOTE | 2024-11-13 12:06 | ED.PDOC ---
History of Present Illness HPI Comments 39-year-old female brought by paramedics from home because she has been having headache twitching for the past 10 days. She was seen at [facility] 10 days ago for which she left against medical advice because she could not wait. She comes back today because the twitching has been increasing where she can not even stand up without falling down. Her blood pressure was 150 nine over 107. History of hypotension CVA. Denies any other symptoms. Time Seen by MD: 11:56 Primary Care Provider: ELADIO Reviewed Notes: Nurses Notes, Medications, Allergies Allergies: Coded Allergies: NO KNOWN ALLERGIES (Unverified , 12/21/13) Home Meds Active Scripts Cyclobenzaprine Hcl (Cyclobenzaprine Hcl) 5 Mg Tab, 5 MG PO BID for 3 Days, #6 TAB Prov:HANY HERNANDEZ MD 06/18/23 Amlodipine Besylate (Amlodipine Besylate) 10 Mg Tab, 1 TAB PO DAILY, #30 TAB 5 Refills Prov:MARVEL BELL MD 04/25/23 Clopidogrel Bisulfate (CLOPIDOGREL) 75 Mg Tab, 75 MG PO DAILY for 30 Days, #30 TAB Prov:MARVEL BELL MD 04/25/23 Atorvastatin Calcium (ATORVASTATIN CALCIUM) 20 Mg Tab, 40 MG PO HS for 30 Days, #60 TAB Prov:MARVEL BELL MD 04/25/23 Aspirin (Aspirin Low Dose) 81 Mg Tab, 81 MG PO DAILY for 30 Days, #30 TAB Prov:MARVEL BELL MD 04/25/23 Reported Medications Gabapentin (Gabapentin) 300 Mg Cap, 300 MG PO TID for 30 Days, MG 04/21/23 Hydrocodone-Acetaminophen (Hydrocodone Bitartrate/AC 10-325 mg) 1 Tab Tab, 1 TAB PO BID, TAB 04/21/23 Atorvastatin Calcium (ATORVASTATIN CALCIUM) 20 Mg Tab, 1 TAB PO DAILY, #30 TAB 5 Refills 04/21/23 Metoprolol Tartrate (Metoprolol Tartrate) 100 Mg Tab, 100 MG PO BID for 30 Days, MG 04/21/23 Losartan Potassium (Losartan Potassium) 100 Mg Tab, 100 MG PO DAILY for 30 Days, MG 04/21/23 Torsemide Injection (Torsemide) 20 Mg Tab, 20 MG PO DAILY, TAB 04/21/23 Information Source: Patient, Emergency Med Personnel Mode of Arrival: EMS Severity: Moderate Timing: Days Duration: Since onset Past Medical History PAST MEDICAL HISTORY: Anxiety, HTN Surgical History: 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 Family History Family History: No family hx of Cancer, No family hx of Heart kenneth, No family hx of HTN, No family hx of Stroke Social History Smoker: Cigarettes, Less Than 1 Pack/Day Alcohol: Denies ETOH Use Drugs: Denies Drug Use Lives In: Home Constitutional: denies: chills, diaphoresis, fatigue, fever, malaise, sweats, weakness, others EENTM: denies: blurred vision, double vision, ear bleeding, ear discharge, ear drainage, ear pain, ear ringing, eye pain, eye redness, hearing loss, mouth pain, mouth swelling, nasal discharge, nose bleeding, nose congestion, nose pain, photophobia, tearing, throat pain, throat swelling, voice changes, others Respiratory: denies: cough, hemoptysis, orthopnea, SOB at rest, shortness of breath, SOB with excertion, stridor, wheezing, others Cardiovascular: denies: chest pain, dizzy spells, diaphoresis, Dyspnea on exertion, edema, irregular heart beat, left arm pain, lightheadedness, palpitations, PND, syncope, others Gastrointestinal: denies: abdomen distended, abdominal pain, blood streaked bowels, constipated, diarrhea, dysphagia, difficulty swallowing, hematemesis, melena, nausea, poor appetite, poor fluid intake, rectal bleeding, rectal pain, vomiting, others Genitourinary: denies: abnormal vagina bleeding, burning, dyspareunia, dysuria, flank pain, frequency, hematuria, incontinence, pain, , vagina discharge, urgency, others Neurological: reports: headache, tremors; denies: dizziness, fainting, left sided numbness, left sided weakness, numbness, paresthesia, pre-existing deficit, right sided numbness, right sided weakness, seizure, speech problems, tingling, weakness, others Musculoskeletal: denies: back pain, gout, joint pain, joint swelling, muscle pain, muscle stiffness, neck pain, others Integumetry: denies: bruises, change in color, change in hair/nails, dryness, laceration, lesions, lumps, rash, wounds, others Allergic/Immunocompromised: denies: Difficulty Healing, Frequent Infections, Hives, Itching, others Hematologic/Lymphatic: denies: anemia, blood clots, easy bleeding, easy bruising, swollen glands, others Endocrine: denies: excessive hunger, excessive sweating, excessive thirst, excessive urination, flushing, intolerance to cold, intolerance to heat, unexplained weight gain, unexplained weight loss, others Psychiatric: denies: anxiety, bipolar disorder, depression, hopeless, panic disorder, schizophrenia, sleepless, suicidal, others Physical Exam General Appearance: Moderate Distress HEENT: Normal ENT Inspection, Pharynx Normal, TMs Normal Neck: Full Range of Motion, Non-Tender, Normal, Normal Inspection Respiratory: Chest Non-Tender, Lungs Clear, No Accessory Muscle Use, No R espiratory Distress, Normal Breath Sounds Cardiovascular: No Edema, No JVD, No Murmur, No Gallop, Normal Peripheral Pulses, Regular Rate/Rhythm Breast Exam: Deferred Gastrointestinal: No Organomegaly, Non Tender, No Pulsatile Mass, Normal Bowel Sounds, Soft Genitalia: Deferred Pelvic: Deferred Rectal: Deferred Extremities: No calf tenderness, Normal inspection, No pedal edema Musculoskeletal : Apperance: Normal Neurologic: Alert, No Motor Deficits, No Sensory Deficits Cerebellar Function: NOT DONE Reflexes: NOT DONE Skin: Dry, Normal Color, Warm Peripheral Pulses: 3+ Radial (R), 3+ Radial (L) Lymphatic: No Adenopathy Was a procedure done? Was a procedure done?: No Differential Dx Considerations may include: Anemia Electrolyte imbalance X-Ray, Labs, Meds, VS Vital Signs Date Time Temp Pulse Resp B/P (MAP) Pulse Ox O2 Delivery O2 Flow Rate FiO2 11/13/24 16:22 115 212/138 11/13/24 16:14 98.2 115 16 212/138 (162) 93 98.2 11/13/24 16:14 Room Air* 0 21 11/13/24 14:07 98.0 110 18 194/129 (150) 95 98.0 11/13/24 11:49 98.2 117 18 158/103 (121) 98 98.2 Lab Test 11/13/24 12:50 Range/Units White Blood Count 19.1 H 4.4-10.8 10^3/uL Red Blood Count 4.49 4.0-5.20 10^6/uL Hemoglobin 14.0 12.2-16.2 g/dL Hematocrit 41.7 36.0-46.0 % Mean Corpuscular Volume 92.8 80.0-100.0 fL Mean Corpuscular Hemoglobin 31.1 28.0-32.0 pg Mean Corpuscular Hemoglobin Concent 33.5 32.0-36.0 g/dL Red Cell Distribution Width 16.9 H 11.8-14.3 % Platelet Count 59 L 140-450 10^3/uL Mean Platelet Volume 9.9 6.9-10.8 fL Neutrophils (%) (Auto) 86.3 H 37.0-80.0 % Lymphocytes (%) (Auto) 7.5 L 10.0-50.0 % Monocytes (%) (Auto) 5.7 0.0-12.0 % Eosinophils (%) (Auto) 0.1 0.0-7.0 % Basophils (%) (Auto) 0.4 0.0-2.0 % Neutrophils # (Auto) 16.5 H 1.6-8.6 10 ^3/uL Lymphocytes # (Auto) 1.4 0.4-5.4 10 ^3/uL Monocytes # (Auto) 1.1 0-1.3 10 ^3/uL Eosinophils # (Auto) 0 0-0.8 10 ^3/uL Basophils # (Auto) 0.1 0-0.2 10 ^3/uL Nucleated Red Blood Cells 0.2 % Platelet Estimate Decrea Large Platelets Few Sodium Level 133 L 136-145 mmol/L Potassium Level 3.3 L 3.5-5.1 mmol/L Chloride Level 96 L 98-107 mmol/L Carbon Dioxide Level 26 20-31 mmol/L Anion Gap 11 5-15 Blood Urea Nitrogen 52 H 9-23 mg/dL Creatinine 4.75 H 0.550-1.02 mg/dL Glomerular Filtration Rate Calc 11 >90 mL/min BUN/Creatinine Ratio 10.9 10.0-20.0 Serum Glucose 134 H 74-106 mg/dL Calcium Level 9.3 8.7-10.4 mg/dL Troponin I High Sensitivity 126 *H </=34 ng/L Current Medications Medications (Trade) Dose Ordered Sig/Reno Route Start Time Stop Time Status Last Admin Labetalol HCl (Labetalol HCl) 10 mg ONCE ONCE IV 11/13/24 12:15 11/13/24 12:16 DC 11/13/24 16:22 Enoxaparin Sodium (Lovenox) 110 mg ONCE ONCE SC 11/13/24 13:45 11/13/24 13:46 DC 11/13/24 16:31 Ceftriaxone Sodium 50 ml @ 100 mls/hr ONCE ONCE IV 11/13/24 13:45 11/13/24 14:14 DC 11/13/24 16:35 Patient alert. Complaining of headache tremors. On examination she does have twitching. Vitals stable. Possible anxiety. Establish intravenous access. Was given fluids. No sign of any head injury. Reviewed her history. Was given Ativan. Continue monitoring. Cardiac marker elevated. Was given Lovenox. UA shows sepsis from urinary tract infection. Was given Rocephin. Blood pressure was controlled with labetalol. Potassium slightly low. EKG reviewed does not show any acute changes. Was given potassium. Explained to the patient on many occasions on her lab results along with the treatment plan. X-Ray, Labs, Meds, VS Comment Chest XR: FINDINGS: The cardiac silhouette is enlarged. The lungs demonstrate perihilar airspace opacities. The pulmonary vasculature is prominent. There is no pleural effusion.. There is no pneumothorax. IMPRESSION: 1. Cardiomegaly with pulmonary vascular congestion and bilateral perihilar airspace opacities. Time of 1ST Reevaluation: 12:04 Reevaluation 1ST: Unchanged Patient Education/Counseling: Diagnosis, Treatment, Prognosis Family Education/Counseling: No Family Present Departure 1 Departure Time of Disposition: 12:05 Impression: Primary Impression: Hypertensive emergency Additional Impressions: Sepsis due to urinary tract infection Demand ischemia Anxiety Hypokalemia Disposition: ADMITTED INPATIENT Admit to: Med Surg Condition: Guarded Critical Care Note Critical Care Time?: Yes (90 min-critical care time only) Critical care comment: Cardiac marker elevated sepsis Stability Stability form required: No Heart Score Heart Score: Heart Score Response (Comments) Value History Slightly Suspicious 0 EKG Normal 0 Age <45 0 Risk Factors 1 or 2 risk factors 1 Troponin Normal limit 0 Total 1 I personally scribed for KEYANA WILEY MD ([email or web address]) on 11/13/24 at 12:50. Electronically submitted by Lawrence Gandhi ([email or web address]). KEYANA WILEY MD November 13, 2024 12:06
[2024-11-13] MEDS ORDERED: SODIUM CHLORIDE 0.9% 1,000 ML IV ONE ×2 (12:15)
--- NOTE | 2024-11-13 12:33 | DVH ---
CHEST RADIOGRAPH Indication: sob Technique: Single frontal view of the chest was obtained Comparison: XY CHEST XRAY 1 VIEW on DOS: 06/18/23, XY CHEST PORTABLE on DOS: 04/19/23 FINDINGS: The cardiac silhouette is enlarged. The lungs demonstrate perihilar airspace opacities. The pulmonary vasculature is prominent. There is no pleural effusion.. There is no pneumothorax. IMPRESSION: 1. Cardiomegaly with pulmonary vascular congestion and bilateral perihilar airspace opacities.
[2024-11-13 13:04] LABS: Basophils # (auto) 0.1 10 ^3/uL (0-0.2); Eosinophils # (auto) 0 10 ^3/uL (0-0.8); Eosinophils % (auto) 0.1 % (0.0-7.0); Monocytes # (auto) 1.1 10 ^3/uL (0-1.3); Nucleated Red Blood Cells % 0.2 %; Red Blood Cells 4.49 10^6/uL (4.0-5.20); White Blood Cell 19.1 10^3/uL (4.4-10.8)
[2024-11-13 13:05] LABS: Basophils % (auto) 0.4 % (0.0-2.0); Hematocrit 41.7 % (36.0-46.0); Lymphocytes # (auto) 1.4 10 ^3/uL (0.4-5.4); Lymphocytes % (auto) 7.5 % (10.0-50.0); Mean Corpuscular Hemoglobin 31.1 pg (28.0-32.0); Mean Corpuscular Hgb Conc. 33.5 g/dL (32.0-36.0); Mean Corpuscular Volume 92.8 fL (80.0-100.0); Monocytes % (auto) 5.7 % (0.0-12.0); Neutrophils # (auto) 16.5 10 ^3/uL (1.6-8.6); Neutrophils % (auto) 86.3 % (37.0-80.0); Platelet Count (auto) 59 10^3/uL (140-450); Red Cell Distribution Width 16.9 % (11.8-14.3)
[2024-11-13 13:13] LABS: Anion Gap 11 (5-15); Calcium 9.3 mg/dL (8.7-10.4); Carbon Dioxide 26 mmol/L (20-31)
[2024-11-13 13:18] LABS: Blood Urea Nitrogen 52 mg/dL (9-23); Chloride 96 mmol/L (98-107); Glucose 134 mg/dL (74-106); Potassium 3.3 mmol/L (3.5-5.1); Sodium 133 mmol/L (136-145)
[2024-11-13 13:19] LABS: BUN/Creatinine Ratio 10.9 (10.0-20.0)
[2024-11-13 13:27] LABS: Large Platelets FEW; Platelet Estimate Decrea
--- NOTE | 2024-11-13 13:28 | DVH ---
EXAM: CT HEAD WITHOUT CONTRAST HISTORY: tia COMPARISON: CT HEAD WITHOUT CONTRAST on DOS: 06/18/23, CT HEAD WITHOUT CONTRAST on DOS: 04/20/23 TECHNIQUE: Axial images of the head were obtained and reformatted in coronal and sagittal planes. All CT scans at this medical facility are performed using dose modulation techniques as appropriate t o a performed exam including the following: Automated exposure control was utilized; adjustment of th e MA and/or KV according to patient size; and use of iterative reconstruction technique. CT Dose: CTDI volume is 55 mGy. Dose-length product is 982 mGy*cm FINDINGS: There is no evidence of acute intracranial hemorrhage, mass, mass effect midline shift. There is no h ydrocephalus or extra-axial fluid collection. Kirkpatrick-white matter differentiation is maintained. There is a retention cyst in the left maxillary sinus. The remaining visualized paranasal sinuses and mastoid air cells are clear. The calvarium is intact. IMPRESSION: 1. No acute intracranial process. HS:Y
[2024-11-13] MEDS: LABETALOL HCL 20 MG/4 ML VL IV ONE ×2 (16:22→18:18)
[2024-11-13] MEDS: ENOXAPARIN SOD 120 MG/0.8 ML SYRINGE SC ONE (16:31)
[2024-11-13] MEDS: cefTRIAXone 1GM/50ML D5W 50 ML IV ONE (16:35)
[2024-11-13] MEDS: AZITHROMYCIN 500MG/ 250ML 250 ML IV ONE (17:07)
[2024-11-13] MEDS: ONDANSETRON HCL 4 MG/2 ML VIAL IV ONE (17:07)
[2024-11-13] MEDS: MORPHINE SULFATE 4 MG/ML SYR/VIAL IV ONE (17:08)
[2024-11-13 17:37] LABS: Urine Bacteria None Seen /hpf (None Seen)
[2024-11-13] MEDS: POTASSIUM EFFERVESENT TAB 25 MEQ PO ONE (17:51)
[2024-11-13 18:31] LABS: Urine Blood 2+ /uL (Negative); Urine Clarity Clear (Clear); Urine Color Yellow (Yellow); Urine Protein, UAD 2+ (Negative); Urine Specific Gravity 1.017 (1.001-1.035); Urine Squamous Epithelial Cell None Seen /hpf (<5); Urine Urobilinogen Normal (Negative); Urine WBC 3 /HPF (0-5); Urine pH 5.5 (5.0-9.0)
[2024-11-13] MEDS ORDERED: POTASSIUM CHL 20 Meq TABLET PO ONE (20:00)
[2024-11-13] MEDS ORDERED: ACETAMINOPHEN 325 MG TAB PO PRN (20:00)
[2024-11-13] MEDS ORDERED: NITROGLYCERIN 0.4 MG SL TAB SL PRN (20:00)
[2024-11-13 20:03] VITALS: PULSE 101; RESP 20; O2SAT 94
--- NOTE | 2024-11-13 20:50 | DVH ---
BILATERAL RENAL ULTRASOUND CLINICAL HISTORY: renal failure COMPARISON: Abdomen and pelvis CT dated 06/18/2023. US KIDNEY on DOS: 04/21/23 TECHNIQUE: Real-time grayscale and color-flow imaging of the kidneys and bladder is performed. FINDINGS: Right kidney: Measures 10.8 cm in length. Increased parenchymal echogenicity. Normal cortical thickne ss. No hydronephrosis. Left kidney: Measures 11.2 cm in length. Increased parenchymal echogenicity. Normal cortical thicknes s. No hydronephrosis. Bladder: Appears to be collapsed around a Raines catheter. IMPRESSION: Increased renal parenchymal echogenicity which can be seen with medical renal disease. No hydronephrosis.
[2024-11-13] MEDS: METOPROLOL TARTRATE 50 MG TAB PO SCH (21:27)
[2024-11-13] MEDS: ATORVASTATIN 20 MG TAB PO SCH (21:27)
[2024-11-13] MEDS: FUROSEMIDE 40 MG/4 ML VIAL IV ONE (21:27)
[2024-11-13 22:54] LABS: LDL Cholesterol 85 mg/dL (< 100)
[2024-11-13 22:55] LABS: Cholesterol 178 mg/dL (< 200)
[2024-11-13 22:57] LABS: HDL Cholesterol 36 mg/dL (40-59); Triglycerides 282 mg/dL (< 150)
[2024-11-13] MEDS: MORPHINE SULFATE INJ 2 MG/ml SYRG IV PRN (23:28)
[2024-11-14] MEDS ORDERED: hydrALAZINE HCL 20 MG/ML VL IV PRN (04:45)
--- NOTE | 2024-11-14 04:45 | DVHHP2 ---
History of Present Illness Reason for Visit: Headache History of Present Illness 39-year-old female presents for evaluation of headache. Patient reports having a headache for the past 10 days. She was recently seen at [facility] and left against medical advice. She states she has been having high blood pressure for years. She states being compliant with her medications she also reports a history of kidney disease. Denies chest pain or palpitations at the moment. No other acute complaints reported. Past Medical History Hypertension, chronic kidney disease, anxiety Past Surgical History Tonsillectomy Family History Noncontributory Smoke: <1 pack per day ALCOHOL: none Drugs: None Lives: with Family Review of Systems Review of Systems Review of systems are currently negative otherwise addressed in HPI. Allergies: Coded Allergies: NO KNOWN ALLERGIES (Unverified , 12/21/13) Medications Current Medications Medications Dose Ordered Sig/Reno Route Start Time Stop Time Status Last Admin Dose Admin Atorvastatin Calcium 40 mg HS PO 11/13/24 22:00 11/13/24 21:27 40 MG Clopidogrel Bisulfate 75 mg DAILY PO 11/14/24 10:00 Cancel Metoprolol Tartrate 100 mg BID PO 11/13/24 22:00 11/13/24 21:27 100 MG Furosemide 20 mg DAILY IV 11/14/24 10:00 Aspirin 81 mg DAILY PO 11/14/24 10:00 Cancel Azithromycin 250 ml @ 125 mls/hr DAILY IV 11/14/24 10:00 Ondansetron HCl 4 mg Q4HP PRN IV 11/13/24 20:00 Acetaminophen 650 mg Q6HP PRN PO 11/13/24 20:00 Nitroglycerin 0.4 mg Q5MINP PRN SL 11/13/24 20:00 Morphine Sulfate 2 mg Q30M PRN IV 11/13/24 20:00 Morphine Sulfate 2 mg Q8HPRN PRN IV 11/13/24 22:00 11/13/24 23:28 2 MG Acetaminophen/ Hydrocodone Bitart 1 tab Q4HPRN PRN PO 11/13/24 22:00 Hydralazine HCl 10 mg Q6HP PRN IV 11/14/24 04:45 UNV Exam Vital Signs Vital Signs Date Time Temp Pulse Resp B/P (MAP) Pulse Ox O2 Delivery O2 Flow Rate FiO2 11/14/24 04:00 86 11/14/24 00:00 19 110/77 (88) 92 11/13/24 20:03 98.6 98.6 11/13/24 20:03 Room Air* 0 21 Exam Gen: 39-year-old female in mild distress Skin: Warm, dry, normal color and texture, no rash. HEENT: Normocephalic atraumatic, mucous membranes moist and pink. Neck: Cervical and supraclavicular nodes normal without enlargement, trachea is midline, thyroid gland is normal without masses. Pulmonary: Clear to auscultation and percussion bilaterally. Cardiac: Regular rate and rhythm. No murmur Abdomen: Soft, nontender, nondistended, bowel sounds present all 4 quadrants, no guarding, no rigidity, no organomegaly. Extremities: No cyanosis, clubbing, no edema Neuro: Cranial nerves II through XII grossly intact, normal affect and speech, no focal motor deficits. Labs/Xrays ORDERING PHYSICIAN: MARTHA WEST PROCEDURE(s): KIDUS - KIDNEY REASON: renal failure ORDER NUMBER(s): [id number], ACCESSION NUMBER(s): [id number] BILATERAL RENAL ULTRASOUND CLINICAL HISTORY: renal failure COMPARISON: Abdomen and pelvis CT dated 06/18/2023. US KIDNEY on DOS: 04/21/23 TECHNIQUE: Real-time grayscale and color-flow imaging of the kidneys and bladder is performed. FINDINGS: Right kidney: Measures 10.8 cm in length. Increased parenchymal echogenicity. Normal cortical thickness. No hydronephrosis. Left kidney: Measures 11.2 cm in length. Increased parenchymal echogenicity. Normal cortical thickness. No hydronephrosis. Bladder: Appears to be collapsed around a Raines catheter. IMPRESSION: Increased renal parenchymal echogenicity which can be seen with medical renal disease. No hydronephrosis. RING PHYSICIAN: KEYANA WILEY MD PROCEDURE(s): CXRP - CHEST PORTABLE REASON: sob ORDER NUMBER(s): [id number], ACCESSION NUMBER(s): [id number] CHEST RADIOGRAPH Indication: sob Technique: Single frontal view of the chest was obtained Comparison: XY CHEST XRAY 1 VIEW on DOS: 06/18/23, XY CHEST PORTABLE on DOS: 04/19/23 FINDINGS: The cardiac silhouette is enlarged. The lungs demonstrate perihilar airspace opacities. The pulmonary vasculature is prominent. There is no pleural effusion.. There is no pneumothorax. IMPRESSION: 1. Cardiomegaly with pulmonary vascular congestion and bilateral perihilar airspace opacities. RING PHYSICIAN: KEYANA WILEY MD PROCEDURE(s): HWOCT - HEAD WITHOUT CONTRAST REASON: tia ORDER NUMBER(s): [id number], ACCESSION NUMBER(s): [id number] EXAM: CT HEAD WITHOUT CONTRAST HISTORY: tia COMPARISON: CT HEAD WITHOUT CONTRAST on DOS: 06/18/23, CT HEAD WITHOUT CONTRAST on DOS: 04/20/23 TECHNIQUE: Axial images of the head were obtained and reformatted in coronal and sagittal planes. All CT scans at this medical facility are performed using dose modulation techniques as appropriate to a performed exam including the following: Automated exposure control was utilized; adjustment of the MA and/or KV according to patient size; and use of iterative reconstruction technique. CT Dose: CTDI volume is 55 mGy. Dose-length product is 982 mGy*cm FINDINGS: There is no evidence of acute intracranial hemorrhage, mass, mass effect midline shift. There is no hydrocephalus or extra-axial fluid collection. Kirkpatrick-white matter differentiation is maintained. There is a retention cyst in the left maxillary sinus. The remaining visualized paranasal sinuses and mastoid air cells are clear. The calvarium is intact. IMPRESSION: 1. No acute intracranial process. HS:Y Labs Test 11/13/24 21:26 11/13/24 20:01 11/13/24 17:25 11/13/24 12:50 Range/Units Troponin I High Sensitivity 140 *H </=34 ng/L Triglycerides Level 282 H < 150 mg/dL Cholesterol Level 178 < 200 mg/dL LDL Cholesterol 85 < 100 mg/dL HDL Cholesterol 36 L 40-59 mg/dL Thyroid Stimulating Hormone (TSH) 0.38 L 0.55-4.78 uIU/mL Lactic Acid Level 1.3 0.4-2.0 mmol/L B-Type Natriuretic Peptide 113.24 0-100 pg/mL Urine Color Yellow Yellow Urine Clarity Clear Clear Urine pH 5.5 5.0-9.0 Urine Specific Olmitz 1.017 1.001-1.035 Urine Protein 2+ H Negative Urine Ketones Negative Negative Urine Blood 2+ H Negative /uL Urine Nitrite Negative Negative Urine Bilirubin Negative Negative Urine Urobilinogen Normal Negative mg/dL Urine Leukocyte Esterase Negative Negative /uL Urine RBC 9 0 - 4 /hpf Urine Microscopic WBC 3 0-5 /HPF Urine Squamous Epithelial Cells None seen <5 /hpf Urine Bacteria None seen None Seen /hpf Urine Glucose Normal Normal mg/dL White Blood Count 19.1 H 4.4-10.8 10^3/uL Red Blood Count 4.49 4.0-5.20 10^6/uL Hemoglobin 14.0 12.2-16.2 g/dL Hematocrit 41.7 36.0-46.0 % Mean Corpuscular Volume 92.8 80.0-100.0 fL Mean Corpuscular Hemoglobin 31.1 28.0-32.0 pg Mean Corpuscular Hemoglobin Concent 33.5 32.0-36.0 g/dL Red Cell Distribution Width 16.9 H 11.8-14.3 % Platelet Count 59 L 140-450 10^3/uL Mean Platelet Volume 9.9 6.9-10.8 fL Neutrophils (%) (Auto) 86.3 H 37.0-80.0 % Lymphocytes (%) (Auto) 7.5 L 10.0-50.0 % Monocytes (%) (Auto) 5.7 0.0-12.0 % Eosinophils (%) (Auto) 0.1 0.0-7.0 % Basophils (%) (Auto) 0.4 0.0-2.0 % Neutrophils # (Auto) 16.5 H 1.6-8.6 10 ^3/uL Lymphocytes # (Auto) 1.4 0.4-5.4 10 ^3/uL Monocytes # (Auto) 1.1 0-1.3 10 ^3/uL Eosinophils # (Auto) 0 0-0.8 10 ^3/uL Basophils # (Auto) 0.1 0-0.2 10 ^3/uL Nucleated Red Blood Cells 0.2 % Platelet Estimate Decrea Large Platelets Few Sodium Level 133 L 136-145 mmol/L Potassium Level 3.3 L 3.5-5.1 mmol/L Chloride Level 96 L 98-107 mmol/L Carbon Dioxide Level 26 20-31 mmol/L Anion Gap 11 5-15 Blood Urea Nitrogen 52 H 9-23 mg/dL Creatinine 4.75 H 0.550-1.02 mg/dL Glomerular Filtration Rate Calc 11 >90 mL/min BUN/Creatinine Ratio 10.9 10.0-20.0 Serum Glucose 134 H 74-106 mg/dL Calcium Level 9.3 8.7-10.4 mg/dL Assessment/Plan Assessment/Plan Assessment Hypertensive emergency Acute on chronic renal failure Elevated troponin, possible demand ischemia Questionable pneumonia Hypokalemia Plan Admit the patient to telemetry to the hospitalist Nephrology consult Cardiology consultation Echocardiogram pending Resume home medications Continue treatment per orders Plan discussed with: Patient My Orders Orders - MARTHA WEST Procedure Category Date Status Time Atorvastatin (Lipitor) PHA 11/13/24 In Process 22:00 Metoprolol Tartrate PHA 11/13/24 In Process Tablet (Lopressor Ta 22:00 Furosemide Injection PHA 11/14/24 In Process (Lasix Injection) 10:00 *Dr. [facility] CONS 11/13/24 Transmitted -[place] 19:59 Kidney US 11/13/24 Resulted 19:59 Azithromycin 500mg/ PHA 11/14/24 In Process 250ml (Zithromax 50 10:00 Admit ADMIT 11/13/24 Transmitted 19:59 Renal DIET 11/14/24 Transmitted Standard(2gna,3gk,Lopho) Breakfast Ondansetron Hcl PHA 11/13/24 In Process (Zofran) 20:00 Complete Blood Count LAB 11/14/24 Logged 04:00 Comprehensive LAB 11/14/24 Logged Metabolic Panel 04:00 Echo 2d Mode Cardiac US 11/13/24 Logged DOP 19:59 Condition: Stable LEE 11/13/24 In Process 19:59 Acetaminophen Tablet PHA 11/13/24 In Process (Tylenol Tablet) 20:00 Bedrest With Bathroom LEE 11/13/24 In Process Privileg 19:59 Nitroglycerin PHA 11/13/24 In Process Sublingual (Ntrostat 20:00 Morphine Sulfate PHA 11/13/24 In Process Injection 20:00 Stat Ekg For Chest LEE 11/13/24 In Process Pain 19:59 Notify Of Changes LEE 11/13/24 In Process From Base 19:59 Substation Designer For LEE 11/13/24 In Process 24 Hours 19:59 Emergency Dysrhythmia [facility] 11/13/24 In Process Protocol 19:59 Rhythm Strips Once [facility] 11/13/24 In Process Every Shift 19:59 Oxygen By Nasal RT 11/13/24 Transmitted Cannula 19:59 Pharmacy [facility] 11/13/24 In Process Clarification: 20:39 Morphine Sulfate PHA 11/13/24 In Process Injection 22:00 Hydrocodone-Acet PHA 11/13/24 In Process 325mg Tab ([place] 22:00 Thyroid Panel LAB 11/14/24 Logged 04:36 Hydralazine Injection PHA 11/14/24 Logged (Apresoline Inject 04:45 * Cardiology Consult CONS 11/14/24 Transmitted 04:39 Date of Service: November 13, 2024 Billing Provider: MARTHA WEST Common Visit Codes: [id number] INP/OBS CARE (HIGH) MARTHA WEST November 14, 2024 04:45
[2024-11-14 06:13] LABS: Basophils # (auto) 0.1 10 ^3/uL (0-0.2); Basophils % (auto) 0.5 % (0.0-2.0); Eosinophils # (auto) 0.1 10 ^3/uL (0-0.8); Eosinophils % (auto) 0.4 % (0.0-7.0); Hematocrit 33.8 % (36.0-46.0); Hemoglobin 11.3 g/dL (12.2-16.2); Lymphocytes # (auto) 2.4 10 ^3/uL (0.4-5.4); Mean Corpuscular Hgb Conc. 33.3 g/dL (32.0-36.0); Mean Corpuscular Volume 92.8 fL (80.0-100.0); Monocytes # (auto) 1.1 10 ^3/uL (0-1.3); Monocytes % (auto) 8.3 % (0.0-12.0); Neutrophils # (auto) 9.9 10 ^3/uL (1.6-8.6); Neutrophils % (auto) 72.8 % (37.0-80.0); Nucleated Red Blood Cells % 0.1 %; Platelet Count (auto) 83 10^3/uL (140-450); Red Blood Cells 3.64 10^6/uL (4.0-5.20); Red Cell Distribution Width 16.6 % (11.8-14.3); White Blood Cell 13.6 10^3/uL (4.4-10.8)
[2024-11-14 06:46] LABS: Alanine Aminotransferase 10 U/L (7-40); Albumin 3.2 g/dL (3.2-4.8); Alkaline Phosphatase 91 U/L (46-116); Anion Gap 13 (5-15); Aspartate Aminotransferase 17 U/L (13-40); BUN/Creatinine Ratio 11.6 (10.0-20.0); Calcium 8.7 mg/dL (8.7-10.4); Carbon Dioxide 28 mmol/L (20-31); Potassium 3.5 mmol/L (3.5-5.1)
[2024-11-14 07:04] LABS: Bilirubin, Total 0.2 mg/dL (0.2-1.0); Blood Urea Nitrogen 63 mg/dL (9-23); Chloride 94 mmol/L (98-107); Glucose 112 mg/dL (74-106); Sodium 135 mmol/L (136-145); Total Protein 5.3 g/dL (5.7-8.2)
[2024-11-14 08:00] VITALS: PULSE 92; RESP 17; O2SAT 93
[2024-11-14] MEDS: ONDANSETRON HCL 4 MG/2 ML VIAL IV PRN (08:09)
[2024-11-14 08:31] LABS: COVID19 ANTIGEN SOFIA FIA NEGATIVE (NEGATIVE); Rapid Influenza A Negative (Negative); Rapid Influenza B Negative (Negative)
--- NOTE | 2024-11-14 09:08 | DVHCONRES ---
Date Seen: November 14, 2024 Resident Creating Document: SAM DURANT RESIDENT History of Present Illness This is a 39-year-old with PMH right frontal/parietal lobe CVA 2022, CKD 3, hypertension who presented to the ER with a chief complaint of recurrent falls, generalized weakness and blurred vision for the past 2 days. Patient reports that the blurred vision initially started 2 weeks back when she went to [facility] and was diagnosed with sepsis and UTI, patient left AMA. She has been experiencing blurred vision from the left eye and reports a black spot on the temporal side of the vision. Over the past 4 days, patient experienced anuria and bilateral flank pain radiating to the groin, sharp in nature, she would feel the urge but could not urinate. For the past 2 days, patient reported 7 mechanical fall because her legs would give up and she has been experiencing generalized weakness. She hit her head but did not lose consciousness or experienced any seizure-like movements. She did not lose her urine or bowel during these episodes. Prior to the episodes, patient would ambulate without the use of walker/cane. Associated symptoms include jerking like headache mostly occipital, movements and muscle spasms and twitching of her lower, upper extremities including her jaw. Reports compliance with her antihypertensive regimen On arrival to the ER, patient had uncontrolled blood pressure 194/129 which reached up to 200 systolic. BUN/creatinine 52/4.7 which trended up to 60/5.4. Patient also had troponin elevation. Chest x-ray shows cardiomegaly with pulmonary vascular congestion. UA showed 2+ blood and 9 RBCs. Past medical history: right frontal/parietal lobe CVA 2022, CKD 3, hypertension Social history: Lives with mother, Smokes 6 cigarettes a day for the past 15 years, denies drinking/illicit drug use Home medications: Amlodipine 10, aspirin, losartan 100 mg, metoprolol 100 mg b.i.d., hydralazine 25 mg b.i.d. Patient follows Dr. Hernandez outpatient Nephrology consulted for renal failure Patient seen and examined at the bedside. Has bilateral upper and lower extremity motor weakness, sensory is intact. No facial asymmetry noted. Raines catheter was placed, and patient urinated [address] was negative. MRI negative. Patient did not receive any fluids so far, orders were discontinued. Patient received 40 mg IV Lasix on 11/13 and has been receiving 20 mg Lasix daily. Renal ultrasound shows increased renal parenchymal echogenicity which can be seen with medical renal disease Family History: Cardiovascular disease G8 MOTHER G8 FATHER G8 SISTER Glaucoma G8 MOTHER Hypertension G8 SISTER Allergies: Coded Allergies: NO KNOWN ALLERGIES (Unverified , 12/21/13) Home Meds Active Scripts Cyclobenzaprine Hcl (Cyclobenzaprine Hcl) 5 Mg Tab, 5 MG PO BID for 3 Days, #6 TAB Prov:HANY HERNANDEZ MD 06/18/23 Amlodipine Besylate (Amlodipine Besylate) 10 Mg Tab, 1 TAB PO DAILY, #30 TAB 5 Refills Prov:MARVEL BELL MD 04/25/23 Clopidogrel Bisulfate (CLOPIDOGREL) 75 Mg Tab, 75 MG PO DAILY for 30 Days, #30 TAB Prov:MARVEL BELL MD 04/25/23 Atorvastatin Calcium (ATORVASTATIN CALCIUM) 20 Mg Tab, 40 MG PO HS for 30 Days, #60 TAB Prov:MARVEL BELL MD 04/25/23 Aspirin (Aspirin Low Dose) 81 Mg Tab, 81 MG PO DAILY for 30 Days, #30 TAB Prov:MRAVEL BELL MD 04/25/23 Reported Medications Gabapentin (Gabapentin) 300 Mg Cap, 300 MG PO TID for 30 Days, MG 04/21/23 Hydrocodone-Acetaminophen (Hydrocodone Bitartrate/AC 10-325 mg) 1 Tab Tab, 1 TAB PO BID, TAB 04/21/23 Atorvastatin Calcium (ATORVASTATIN CALCIUM) 20 Mg Tab, 1 TAB PO DAILY, #30 TAB 5 Refills 04/21/23 Metoprolol Tartrate (Metoprolol Tartrate) 100 Mg Tab, 100 MG PO BID for 30 Days, MG 04/21/23 Losartan Potassium (Losartan Potassium) 100 Mg Tab, 100 MG PO DAILY for 30 Days, MG 04/21/23 Torsemide Injection (Torsemide) 20 Mg Tab, 20 MG PO DAILY, TAB 04/21/23 Current Medications Current Medications Medications (Trade) Dose Ordered Sig/[place] Route PRN Reason Start Time Stop Time Status Last Admin Atorvastatin Calcium (Lipitor) 40 mg HS PO 11/13/24 22:00 11/13/24 21:27 Clopidogrel Bisulfate (Plavix) 75 mg DAILY PO 11/14/24 10:00 Cancel Metoprolol Tartrate (Lopressor Tablet) 100 mg BID PO 5/14/25 22:00 11/13/24 21:27 Furosemide (Lasix Injection) 20 mg DAILY IV 11/14/24 10:00 Aspirin 81 mg DAILY PO 11/14/24 10:00 Cancel Azithromycin 250 ml @ 125 mls/hr DAILY IV 11/14/24 10:00 Ondansetron HCl (Zofran) 4 mg Q4HP PRN IV NAUSEA / VOMITING 11/13/24 20:00 11/14/24 08:09 Acetaminophen (Tylenol Tablet) 650 mg Q6HP PRN PO PAIN SCALE 1-3 OR TEMP>100.4 11/13/24 20:00 Nitroglycerin (Ntrostat Sublingual) 0.4 mg Q5MINP PRN SL FOR CHEST PAIN 11/13/24 20:00 Morphine Sulfate 2 mg Q30M PRN IV FOR CHEST PAIN 11/13/24 20:00 Morphine Sulfate 2 mg Q8HPRN PRN IV SEVERE PAIN (7-10 PAIN SCALE) 11/13/24 22:00 11/14/24 08:10 Acetaminophen/ Hydrocodone Bitart ([place] 5/325MG Tab) 1 tab Q4HPRN PRN PO MODERATE PAIN (4-6 PAIN SCALE) 11/13/24 22:00 Hydralazine HCl (Apresoline Injection) 10 mg Q6HP PRN IV SBP>150 11/14/24 04:45 11/14/24 07:17 DC Hydralazine HCl (Apresoline Injection) 10 mg Q6HP PRN IV SBP>160 11/14/24 07:15 Vital Signs Vital Signs Date Time Temp Pulse Resp B/P (MAP) Pulse Ox O2 Delivery O2 Flow Rate FiO2 11/14/24 08:10 92 17 159/96 11/14/24 08:00 93 Room Air* 0 21 11/14/24 08:00 97.7 97.7 Physical Exam Patient lying in bed, with twitching like movement of bilateral lower and upper extremities. Patient has left lateral vision loss General: Obese, afebrile, palor, mucosae are moist Cardiovascular: Regular S1 and S2. No murmurs, gallops or rubs. No JVD elevation. No pedal edema Respiratory: Normal B/L air entry on room air. Clear lung sounds on auscultation Abdomen: Soft, nontender, nondistended, normoactive bowel sounds, no rebound tenderness, no organomegaly, no masses Genitourinary: Raines catheter seen draining clear urine. MSK/skin: Mobilizes 4 limbs. Skin is dry and warm Neurological: Bilateral upper and lower extremity motor weakness. No sensory deficit. No facial asymmetry.. Pupils are isocoric and reactive. Psych/Mental Status: A/Ox3 Labs/Diagnostic Data Labs Test 11/14/24 07:40 11/14/24 07:35 11/14/24 07:28 11/14/24 05:48 Range/Units Influenza Type A Antigen Negative Negative Influenza Type B Antigen Negative Negative SARS-CoV-2 Antigen (Rapid) Negative NEGATIVE Lactic Acid Level 1.9 0.4-2.0 mmol/L Vitamin B12 Level 154 L 211-911 pg/mL Vitamin D 25-Hydroxy 8.6 L 30.0-100 ng/mL White Blood Count 13.6 #H 4.4-10.8 10^3/uL Red Blood Count 3.64 L 4.0-5.20 10^6/uL Hemoglobin 11.3 #L 12.2-16.2 g/dL Hematocrit 33.8 #L 36.0-46.0 % Mean Corpuscular Volume 92.8 80.0-100.0 fL Mean Corpuscular Hemoglobin 31.0 28.0-32.0 pg Mean Corpuscular Hemoglobin Concent 33.3 32.0-36.0 g/dL Red Cell Distribution Width 16.6 H 11.8-14.3 % Platelet Count 83 L 140-450 10^3/uL Mean Platelet Volume 10.0 6.9-10.8 fL Neutrophils (%) (Auto) 72.8 37.0-80.0 % Lymphocytes (%) (Auto) 18.0 10.0-50.0 % Monocytes (%) (Auto) 8.3 0.0-12.0 % Eosinophils (%) (Auto) 0.4 0.0-7.0 % Basophils (%) (Auto) 0.5 0.0-2.0 % Neutrophils # (Auto) 9.9 H 1.6-8.6 10 ^3/uL Lymphocytes # (Auto) 2.4 0.4-5.4 10 ^3/uL Monocytes # (Auto) 1.1 0-1.3 10 ^3/uL Eosinophils # (Auto) 0.1 0-0.8 10 ^3/uL Basophils # (Auto) 0.1 0-0.2 10 ^3/uL Nucleated Red Blood Cells 0.1 % Sodium Level 135 L 136-145 mmol/L Potassium Level 3.5 3.5-5.1 mmol/L Chloride Level 94 L 98-107 mmol/L Carbon Dioxide Level 28 20-31 mmol/L Anion Gap 13 5-15 Blood Urea Nitrogen 63 #H 9-23 mg/dL Creatinine 5.43 H 0.550-1.02 mg/dL Glomerular Filtration Rate Calc 10 >90 mL/min BUN/Creatinine Ratio 11.6 10.0-20.0 Serum Glucose 112 H 74-106 mg/dL Hemoglobin A1c 4.6 <5.7 % A1C Calcium Level 8.7 8.7-10.4 mg/dL Total Bilirubin 0.2 0.2-1.0 mg/dL Aspartate Amino Transferase (AST) 17 13-40 U/L Alanine Aminotransferase (ALT) 10 7-40 U/L Alkaline Phosphatase 91 46-116 U/L Total Protein 5.3 L 5.7-8.2 g/dL Albumin 3.2 3.2-4.8 g/dL Test 11/13/24 21:26 11/13/24 20:01 11/13/24 17:25 11/13/24 12:50 Range/Units Troponin I High Sensitivity 140 *H </=34 ng/L Triglycerides Level 282 H < 150 mg/dL Cholesterol Level 178 < 200 mg/dL LDL Cholesterol 85 < 100 mg/dL HDL Cholesterol 36 L 40-59 mg/dL Thyroid Stimulating Hormone (TSH) 0.38 L 0.55-4.78 uIU/mL B-Type Natriuretic Peptide 113.24 0-100 pg/mL Urine Color Yellow Yellow Urine Clarity Clear Clear Urine pH 5.5 5.0-9.0 Urine Specific [place] 1.017 1.001-1.035 Urine Protein 2+ H Negative Urine Ketones Negative Negative Urine Blood 2+ H Negative /uL Urine Nitrite Negative Negative Urine Bilirubin Negative Negative Urine Urobilinogen Normal Negative mg/dL Urine Leukocyte Esterase Negative Negative /uL Urine RBC 9 0 - 4 /hpf Urine Microscopic WBC 3 0-5 /HPF Urine Squamous Epithelial Cells None seen <5 /hpf Urine Bacteria None seen None Seen /hpf Urine Glucose Normal Normal mg/dL Platelet Estimate Decrea Large Platelets Few Assessment ALEXANDER superimposed on CKD secondary to hypertensive emergency Rule out obstruction Chronic kidney disease IIIb versus 4 Rule out stroke Left temporal vision loss Hypertensive emergency Acute gastro Enteritis NSTEMI Hypokalemia History of stroke 04/2023 with residual left-sided weakness History of small PFO 2022 History of atrial septal aneurysm 2022 Vitamin B12 deficiency Vitamin-D deficiency Secondary hyperparathyroidism ? Secondary hypothyroidism Nicotine dependence Raines catheter was placed, and patient urinated [address] was negative. MRI negative. Renal ultrasound shows increased renal parenchymal echogenicity which can be seen with medical renal disease creatinine was 1.53, GFR 45 09/18/2023 Plan: Strict I&Os, continue Raines catheter placement Patient received IV labetalol and hydralazine IV for uncontrolled hypertension. Started on nifedipine 90 mg daily, Coreg 25 mg b.i.d. Follow up with secondary workup for hypertensive emergency including echoc ardiogram, renin/aldosterone level, metanephrines, urine potassium and urine electrolytes, renal duplex, cortisol levels Plan discussed with patient in which all questions have been answered Case discussed with Dr. Ortiz Addendum Patient seen and examined, plan discussed with resident. Agree with above, we will follow closely IV fluids as ordered We will follow closely Nonoliguric Plan discussed with: Patient SAM DURANT RESIDENT November 14, 2024 09:08 ATUL ORTIZ MD November 14, 2024 19:40
[2024-11-14 09:14] LABS: Magnesium 2.1 mg/dL (1.6-2.6)
[2024-11-14 09:24] LABS: Blood Alcohol < 3.0 mg/dL (<10)
[2024-11-14] MEDS ORDERED: ASPirin 81 mg TAB PO SCH (10:00)
[2024-11-14] MEDS ORDERED: AZITHROMYCIN 500MG/ 250ML 250 ML IV SCH (10:00)
[2024-11-14] MEDS ORDERED: CLOPIDOGREL BISULFATE 75 MG TAB PO SCH (10:00)
--- NOTE | 2024-11-14 10:09 | DVH ---
CT CT AB PEL WO CON-NO ORAL OR IV INDICATION: pain EXAM DATE: 11/14/2024 09:36 AM COMPARISON: CT CT AB PEL WO CON-NO ORAL OR IV on DOS: 06/18/23, CT [facility] AB PEL WO CON-NO IV/ORAL on D OS: 04/20/23 RADIATION DOSE: CTDIvol: mGy, DLP: mGy*cm PROCEDURE: Helical CT images were obtained of the abdomen and pelvis 1Sagittal and coronal reconstruc tions are provided. ORAL CONTRAST: None. ADDITIONAL IMAGES / REFORMATS: None All CT scans at this [facility] facility are performed using dose modulation techniques as appropriate to a performed exam inclu ding the following: Automated exposure control was utilized; adjustment of the MA and/or KV according to patient size; and use of iterative reconstruction technique. FINDINGS: LUNG BASE: Normal. LIVER: Normal. GALLBLADDER AND BILIARY TREE: Cholecystectomy clips are seen. No intra- or extrahepatic biliary ducta l dilation. PANCREAS: Normal. SPLEEN: Normal. BOWEL: Prominent left sera abdomen small bowel wall thickening with adjacent inflammatory fat strandi ng and mesenteric edema could be seen with enteritis. Appendix not seen. ADRENALS: Normal. KIDNEYS AND URETER: Normal. BLADDER: Normal. REPRODUCTIVE ORGANS: Normal. LYMPH NODES:No lymphadenopathy. PERITONEUM: No ascites or free air. No other fluid collection. VESSELS: Scattered atherosclerotic calcifications are noted. RETROPERITONEUM: Normal. ABDOMINAL WALL: Normal. BONES: Scattered osseous degenerative changes are noted. IMPRESSION: Prominent left sera abdomen small bowel wall thickening with adjacent inflammatory fat stranding and mesenteric edema could be seen with enteritis.
[2024-11-14] MEDS: FUROSEMIDE 20 MG/2 ML VIAL IV SCH (10:47)
--- NOTE | 2024-11-14 10:58 | DVHPNRES ---
Progress Note Date Seen: November 14, 2024 Resident Creating Document: RYAN ESTRADA RESIDENT Has the PT tested + for MRSA If YES, has PT been informed?: No Medical Necessity Reason Pt with a Central, PICC or Fol: No Subjective Review of Systems Mary Ervin is a 79 years old male with a PMH of CVA in 2022, uncontrolled HTN, CKD presented to the ED with the chief complaints of having severe headache since 2 days prior to admission. Patient reported she has been having headache and uncontrolled hypertension for long time but for last 2 days patient developed a she has been having twitching in the both legs and decreased strength associated with a severe headache and uncontrolled blood pressure which prompted her to visit ED. Patient reported despite of taking blood pressure medications her blood pressure is always in 150s. Patient reports she has been following with PCP and Nephrology on outpatient. Patient reported she diagnosed with high blood pressure almost 15 years ago. Patient is active smoker smokes less than 1 pack per day, occasional marijuana abuse but denies alcohol and other drug abuse Patient reported she is taking metoprolol 100 mg b.i.d., losartan b.i.d. ( patient did not remember 50 or 25mg) and Hydralazine b.i.d. unable to recall dose along with the [place] for back pain. Patient seen and examined at the bedside. Patient reported that she has been having generalized abdominal pain and tenderness and mild headache. Patient already reported she has been having ongoing twitching. Head CT showed no acute abnormalities, consulted Neurology for further evaluation and ordered CT abdominal pelvis along with a renal artery Doppler. Nephrology consulted for the evaluation of CKD. Objective vital signs Vital Sign Date Time Temp Pulse Resp B/P (MAP) Pulse Ox O2 Delivery O2 Flow Rate FiO2 11/14/24 10:47 145/100 11/14/24 10:47 102 11/14/24 08:40 17 11/14/24 08:00 93 Room Air* 0 21 11/14/24 08:00 97.7 97.7 Total Intake and Output 11/13/24 11/13/24 11/14/24 15:00 23:00 07:00 Intake Total 300 ml Balance 300 ml medications Current Medications Medications Dose Ordered Sig/Reno Route Start Time Stop Time Status Last Admin Dose Admin Atorvastatin Calcium 40 mg HS PO 11/13/24 22:00 11/13/24 21:27 40 MG Clopidogrel Bisulfate 75 mg DAILY PO 11/14/24 10:00 Cancel Metoprolol Tartrate 100 mg BID PO 11/13/24 22:00 11/14/24 10:47 100 MG Furosemide 20 mg DAILY IV 11/14/24 10:00 11/14/24 10:47 20 MG Aspirin 81 mg DAILY PO 11/14/24 10:00 Cancel Ondansetron HCl 4 mg Q4HP PRN IV 11/13/24 20:00 11/14/24 08:09 4 MG Acetaminophen 650 mg Q6HP PRN PO 11/13/24 20:00 Nitroglycerin 0.4 mg Q5MINP PRN SL 11/13/24 20:00 Morphine Sulfate 2 mg Q30M PRN IV 11/13/24 20:00 Acetaminophen/ Hydrocodone Bitart 1 tab Q4HPRN PRN PO 11/13/24 22:00 Hydralazine HCl 10 mg Q6HP PRN IV 11/14/24 07:15 Morphine Sulfate 2 mg Q4HPRN PRN IV 11/14/24 09:45 Ceftriaxone Sodium 50 ml @ 100 mls/hr DAILY@09 IV 11/15/24 09:00 Metronidazole 100 ml @ 100 mls/hr Q8HR IV 11/14/24 14:00 Ergocalciferol 50,000 unit Q7D PO 11/14/24 11:00 UNV Pantoprazole Sodium 40 mg DAILY IV 11/15/24 10:00 UNV Examination Pt is lying on bed General Appearance: Alert, Oriented X3, Cooperative, In severe distress HEENT: Atraumatic, Mucous membranes moist/pink Respiratory: Clear to auscultation, Normal air movement, No added sounds Cardiovascular: tachycardic, Normal S1, Normal S2, No murmurs Abdominal: generalized abdominal tenderness, flank tenderness Extremities: No edema, Normal pulses, No tenderness/swelling Skin: No Significant rash, except past surgical scars Neuro: Normal speech, sensation is intact but decreased strength globally Psych/Mental Status: Mental status NL, Mood NL Nurse was there as sharperone during examination laboratory and microbiology Laboratory Tests 11/14/24 05:48 Test 11/14/24 05:48 Range/Units Serum Glucose 112 H 74-106 mg/dL Labs and/or images reviewed: Labs reviewed by me, Image(s) reviewed by me Problem List/Assessment/Plan Problem List/Assessment/Plan # HTN emergency with end-organ damage # HTN uncontrolled # NSTEMI 2 likely due to above # ALEXANDER on CKD likely ATN # R/o acute cva - head CT showed no acute changes - labetalol and hydralazine as needed - elevated troponins - metoprolol and mg b.i.d. - continuously monitor blood pressure - nephrology consult on board - renal ultrasound showed chronic changes - Lasix 20 mg due to pulmonary vascular congestion - pending 2D echo # Ruled out PNA # Hypokalemia - Repleting - Monitor lab # Sepsis likely from below # Enteritis - Rocephin and Flagyl # Vit D deficiency # Vitamin B12 deficiency - Repleting # thrombocytopenia - monitor lab for now Protonix SCD Cardiac/Renal diet Goals of care discussed with the patient for more than 29 minutes: Full code status Case management discussed with Dr. Bazzi, patient and nurse Plan discussed with: Patient My Orders My Orders Orders - RYAN ESTRADA RESIDENT Procedure Category Date Status Time Respiratory Culture SANJU 11/14/24 Logged W/ Gs 07:13 Drug Screen LAB 11/14/24 Logged 07:14 Hydralazine Injection PHA 11/14/24 In Process (Apresoline Inject 07:15 Morphine Sulfate PHA 11/14/24 In Process Injection 09:45 * Neurology Consult CONS 11/14/24 Transmitted 09:27 Ct Ab Pel Wo Con-No CT 11/14/24 Resulted Oral Or Iv 09:27 Ceftriaxone 1gm/50ml PHA 11/14/24 In Process D5w (Rocephin) 10:45 Ceftriaxone 1gm/50ml PHA 11/15/24 In Process D5w (Rocephin) 09:00 Metronidazole PHA 11/14/24 In Process 500mg/100ml (Flagyl 14:00 T3 Total LAB 11/14/24 In Process 10:50 Free T4 (Free LAB 11/14/24 In Process Thyroxine) 10:50 Ergocalciferol PHA 11/14/24 Logged (Vitamin D 50,000 11:00 Cyanocobalamin PHA 11/14/24 Logged Injection (Vitamin 11:00 Pantoprazole PHA 11/15/24 Logged (Protonix) 10:00 Sequential LEE 11/14/24 In Process Compression Device 10:55 Date of Service: November 14, 2024 Billing Provider: FAIZAN ADLER MD Common Visit Codes: [id number] INP/OBS CARE(HIGH) RYAN ESTRADA RESIDENT November 14, 2024 10:58 FAIZAN ADLER MD November 17, 2024 03:13
[2024-11-14 11:30] VITALS: PULSE 84; RESP 18; O2SAT 94
[2024-11-14 11:34] LABS: T3 Total 0.29 ng/mL (0.60-1.81)
[2024-11-14 11:35] LABS: Free T4 (Free Thyroxine) 0.74 ng/dL (0.89-1.76)
[2024-11-14] MEDS: CYANOCOBALAMIN (B-12) 1000 MCG/1 ML VIAL IM ONE (11:36)
[2024-11-14] MEDS: cefTRIAXone 1GM/50ML D5W 50 ML IV ONE (11:37)
[2024-11-14] MEDS: ERGOCALCIFEROL 50,000 UNIT(1.25MG) CAP PO SCH (11:37)
[2024-11-14] MEDS: hydrALAZINE HCL 20 MG/ML VL IV PRN (11:46)
--- NOTE | 2024-11-14 11:52 | DVHINCON2 ---
Date Seen: November 14, 2024 Referring Physician JAK Chung Reason for Consultation Elevated trop History of Present Illness This is a 39-year-old female who presented to the emergency room via EMS with a chief complaint of uncontrolled blood pressure. The patient reports she found her blood pressure to be 220/155 mmHg and associated with tremors which prompted her to call 911. En route to the hospital she was administered NS x 500 mls bolus and placed on O2 at 2LPM. Upon assessment she was found with a SBP in the 190s mmHg. Denies chest pain, palpitations, diaphoresis, SOB, dizziness, or syncopal events. There was no 12 lead electrocardiogram on file. Troponin leve ls have remained flat in the 100s ng/L. Note, she also complains of diffuse abdominal pain and denying N/V/D or constipation. 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 Past Medical History Past medical history reviewed. No other significant than mentioned above. Past Surgical History Tonsillectomy Cholecystectomy Bilateral upper extremities Bilateral carpal tunnel Family History: Cardiovascular disease G8 MOTHER G8 FATHER G8 SISTER Glaucoma G8 MOTHER Hypertension G8 SISTER Family History Family history reviewed. Mother with a history of SVT. Social History Denies the use of illicit drugs or alcohol. Admits to occasional tobacco use. Allergies: Coded Allergies: NO KNOWN ALLERGIES (Unverified , 12/21/13) Home Meds Active Scripts Cyclobenzaprine Hcl (Cyclobenzaprine Hcl) 5 Mg Tab, 5 MG PO BID for 3 Days, #6 TAB Prov:HANY HERNANDEZ MD 06/18/23 Amlodipine Besylate (Amlodipine Besylate) 10 Mg Tab, 1 TAB PO DAILY, #30 TAB 5 Refills Prov:MARVEL BELL MD 04/25/23 Clopidogrel Bisulfate (CLOPIDOGREL) 75 Mg Tab, 75 MG PO DAILY for 30 Days, #30 TAB Prov:MARVEL BELL MD 04/25/23 Atorvastatin Calcium (ATORVASTATIN CALCIUM) 20 Mg Tab, 40 MG PO HS for 30 Days, #60 TAB Prov:MARVEL BELL MD 04/25/23 Aspirin (Aspirin Low Dose) 81 Mg Tab, 81 MG PO DAILY for 30 Days, #30 TAB Prov:MARVEL BELL MD 04/25/23 Reported Medications Gabapentin (Gabapentin) 300 Mg Cap, 300 MG PO TID for 30 Days, MG 04/21/23 Hydrocodone-Acetaminophen (Hydrocodone Bitartrate/AC 10-325 mg) 1 Tab Tab, 1 TAB PO BID, TAB 04/21/23 Atorvastatin Calcium (ATORVASTATIN CALCIUM) 20 Mg Tab, 1 TAB PO DAILY, #30 TAB 5 Refills 04/21/23 Metoprolol Tartrate (Metoprolol Tartrate) 100 Mg Tab, 100 MG PO BID for 30 Days, MG 04/21/23 Losartan Potassium (Losartan Potassium) 100 Mg Tab, 100 MG PO DAILY for 30 Days, MG 04/21/23 Torsemide Injection (Torsemide) 20 Mg Tab, 20 MG PO DAILY, TAB 04/21/23 Home Meds Home medications reviewed. Current Medications Current Medications Medications (Trade) Dose Ordered Sig/[place] Route PRN Reason Start Time Stop Time Status Last Admin Atorvastatin Calcium (Lipitor) 40 mg HS PO 11/13/24 22:00 11/13/24 21:27 Clopidogrel Bisulfate (Plavix) 75 mg DAILY PO 11/14/24 10:00 Cancel Metoprolol Tartrate (Lopressor Tablet) 100 mg BID PO 11/13/24 22:00 11/14/24 10:47 Furosemide (Lasix Injection) 20 mg DAILY IV 11/14/24 10:00 11/14/24 10:47 Aspirin 81 mg DAILY PO 11/14/24 10:00 Cancel Azithromycin 250 ml @ 125 mls/hr DAILY IV 11/14/24 10:00 11/14/24 10:42 DC Ondansetron HCl (Zofran) 4 mg Q4HP PRN IV NAUSEA / VOMITING 11/13/24 20:00 11/14/24 08:09 Acetaminophen (Tylenol Tablet) 650 mg Q6HP PRN PO PAIN SCALE 1-3 OR TEMP>100.4 11/13/24 20:00 Nitroglycerin (Ntrostat Sublingual) 0.4 mg Q5MINP PRN SL FOR CHEST PAIN 11/13/24 20:00 Morphine Sulfate 2 mg Q30M PRN IV FOR CHEST PAIN 11/13/24 20:00 Morphine Sulfate 2 mg Q8HPRN PRN IV SEVERE PAIN (7-10 PAIN SCALE) 11/13/24 22:00 11/14/24 09:32 DC 11/14/24 08:10 Acetaminophen/ Hydrocodone Bitart (Rossiter 5/325MG Tab) 1 tab Q4HPRN PRN PO MODERATE PAIN (4-6 PAIN SCALE) 11/13/24 22:00 Hydralazine HCl (Apresoline Injection) 10 mg Q6HP PRN IV SBP>150 11/14/24 04:45 11/14/24 07:17 DC Hydralazine HCl (Apresoline Injection) 10 mg Q6HP PRN IV SBP>160 11/14/24 07:15 Morphine Sulfate 2 mg Q4HPRN PRN IV SEVERE PAIN (7-10 PAIN SCALE) 11/14/24 09:45 Ceftriaxone Sodium 50 ml @ 100 mls/hr DAILY@09 IV 11/15/24 09:00 Metronidazole 100 ml @ 100 mls/hr Q8HR IV 11/14/24 14:00 Ergocalciferol (Vitamin D 50,000 Unit) 50,000 unit Q7D PO 11/14/24 11:00 Pantoprazole Sodium (Protonix) 40 mg DAILY IV 11/15/24 10:00 Review of Systems Constitutional: Tremors Ears, Nose, & Throat: No symptom reported Eyes: No symptom reported Neurological: No symptoms reported Pulmonary/Respiratory: No symptom reported Cardiovascular: No symptom reported Gastrointestinal: No symptom reported Genitourinary: No symptom reported Musculoskeletal: No symptom reported Skin: No symptom reported Psychiatric: No symptom reported Endocrine: No symptom reported Hemotologic/Lymphatic: No symptom reported Vital Signs Vital Signs Date Time Temp Pulse Resp B/P (MAP) Pulse Ox O2 Delivery O2 Flow Rate FiO2 11/14/24 10:47 145/100 11/14/24 10:47 102 11/14/24 09:00 17 93 11/14/24 08:00 Room Air* 0 21 11/14/24 08:00 97.7 97.7 Physical Exam General Appearance: Cooperative. Well developed. Obese. In no acute distress Head Exam: Normal inspection Neck Exam: Normal inspection. Non-tender. Normal alignment Pulmonary/Respiratory: Chest non-tender. Crackles to bilateral breath sounds Cardiovascular/Chest: Regular rate and rhythm. S1, S2. Sinus rhythm. No murmurs. No JVD. Peripheral Pulses: 2+ Radial (R). 2+ Radial (L). 2+ Pedal (R). 2+ Pedal (L) Abdominal Exam: Normal bowel sounds. Soft. Nontender. No hepatospenomegaly. No masses Ankle Exam: Negative ankle edema Lower extremities: Negative lower extremity edema Neuro/Mental Status: A&O x4. Coherent Thoughts/Psych: Normal thought pattern. Appropriate mood and affect. Good judgement and insight Appearance: In no acute distress Skin Exam: Normal inspection. Normal color. Warm. Dry Labs/Diagnostic Data Labs Test 11/14/24 07:40 11/14/24 07:35 11/14/24 07:28 11/14/24 05:48 Range/Units Influenza Type A Antigen Negative Negative Influenza Type B Antigen Negative Negative SARS-CoV-2 Antigen (Rapid) Negative NEGATIVE Lactic Acid Level 1.9 0.4-2.0 mmol/L Vitamin B12 Level 154 L 211-911 pg/mL Vitamin D 25-Hydroxy 8.6 L 30.0-100 ng/mL White Blood Count 13.6 #H 4.4-10.8 10^3/uL Red Blood Count 3.64 L 4.0-5.20 10^6/uL Hemoglobin 11.3 #L 12.2-16.2 g/dL Hematocrit 33.8 #L 36.0-46.0 % Mean Corpuscular Volume 92.8 80.0-100.0 fL Mean Corpuscular Hemoglobin 31.0 28.0-32.0 pg Mean Corpuscular Hemoglobin Concent 33.3 32.0-36.0 g/dL Red Cell Distribution Width 16.6 H 11.8-14.3 % Platelet Count 83 L 140-450 10^3/uL Mean Platelet Volume 10.0 6.9-10.8 fL Neutrophils (%) (Auto) 72.8 37.0-80.0 % Lymphocytes (%) (Auto) 18.0 10.0-50.0 % Monocytes (%) (Auto) 8.3 0.0-12.0 % Eosinophils (%) (Auto) 0.4 0.0-7.0 % Basophils (%) (Auto) 0.5 0.0-2.0 % Neutrophils # (Auto) 9.9 H 1.6-8.6 10 ^3/uL Lymphocytes # (Auto) 2.4 0.4-5.4 10 ^3/uL Monocytes # (Auto) 1.1 0-1.3 10 ^3/uL Eosinophils # (Auto) 0.1 0-0.8 10 ^3/uL Basophils # (Auto) 0.1 0-0.2 10 ^3/uL Nucleated Red Blood Cells 0.1 % Sodium Level 135 L 136-145 mmol/L Potassium Level 3.5 3.5-5.1 mmol/L Chloride Level 94 L 98-107 mmol/L Carbon Dioxide Level 28 20-31 mmol/L Anion Gap 13 5-15 Blood Urea Nitrogen 63 #H 9-23 mg/dL Creatinine 5.43 H 0.550-1.02 mg/dL Glomerular Filtration Rate Calc 10 >90 mL/min BUN/Creatinine Ratio 11.6 10.0-20.0 Serum Glucose 112 H 74-106 mg/dL Hemoglobin A1c 4.6 <5.7 % A1C Calcium Level 8.7 8.7-10.4 mg/dL Phosphorus Level 5.3 H 2.4-5.1 mg/dL Magnesium Level 2.1 1.6-2.6 mg/dL Total Bilirubin 0.2 0.2-1.0 mg/dL Aspartate Amino Transferase (AST) 17 13-40 U/L Alanine Aminotransferase (ALT) 10 7-40 U/L Alkaline Phosphatase 91 46-116 U/L Total Protein 5.3 L 5.7-8.2 g/dL Albumin 3.2 3.2-4.8 g/dL Parathyroid Hormone (Intact) 241.5 H 18.4-80.1 pg/mL Plasma/Serum Blood Alcohol < 3.0 <10 mg/dL Test 11/13/24 21:26 11/13/24 20:01 11/13/24 17:25 11/13/24 12:50 Range/Units Troponin I High Sensitivity 140 *H </=34 ng/L Triglycerides Level 282 H < 150 mg/dL Cholesterol Level 178 < 200 mg/dL LDL Cholesterol 85 < 100 mg/dL HDL Cholesterol 36 L 40-59 mg/dL Thyroid Stimulating Hormone (TSH) 0.38 L 0.55-4.78 uIU/mL B-Type Natriuretic Peptide 113.24 0-100 pg/mL Urine Color Yellow Yellow Urine Clarity Clear Clear Urine pH 5.5 5.0-9.0 Urine Specific [place] 1.017 1.001-1.035 Urine Protein 2+ H Negative Urine Ketones Negative Negative Urine Blood 2+ H Negative /uL Urine Nitrite Negative Negative Urine Bilirubin Negative Negative Urine Urobilinogen Normal Negative mg/dL Urine Leukocyte Esterase Negative Negative /uL Urine RBC 9 0 - 4 /hpf Urine Microscopic WBC 3 0-5 /HPF Urine Squamous Epithelial Cells None seen <5 /hpf Urine Bacteria None seen None Seen /hpf Urine Glucose Normal Normal mg/dL Platelet Estimate Decrea Large Platelets Few Assessment Hypertensive emergency ALEXANDER on advanced CKD Stage IIIb Cardiorenal syndrome Type III/IV NSTEMI, likely type 2 secondary to above Rule out structural heart disease Dyslipidemia Tobacco use Morbid obesity Plan/Recommendation (Dr. Jones) Scheduled for a transthoracic echocardiogram to evaluate cardiac function and a baseline 12 lead electrocardiogram. In the meantime, continue aggressive blood pressure control with hydralazine, nifedipine, and Coreg for a target SBP <140 mmHg. The patient denies any cardiac symptoms. Continue preload reduction per renal team recommendations. In the setting of an unremarkable echocardiogram, there is no further cardiac work-up indicated at this time. Thank you for allowing us to participate in this patient's care. Please call if you have any questions or concerns. This medical document was created using an electronic medical record system with voice recognition software and computerized dictation system. Although this document has been carefully reviewed, there might still be some phonetic and typographical errors. Occasional wrong-word or ``sound-alike substitutions may have occurred due to the inherent limitations of voice recognition software. These areas are purely typographical due to imperfections of the software programs and do not reflect any compromise in the patient's medical care. Please read the chart carefully and recognize, using context, where these substitutions have occurred. Plan discussed with: Patient, Other (mother) NYHA Physical activity limitations: NA Date of Service: November 14, 2024 Billing Provider: MARQUES STATON Cardiology Common Codes: [id number] INP/OBS CARE (High) MARQUES STATON November 14, 2024 11:52
[2024-11-14 12:05] VITALS: BP 125/76; PULSE 84; RESP 18; TEMP 97.8; O2SAT 94
[2024-11-14] MEDS: HYDROcodone-ACET 5/325MG TAB PO PRN (12:22)
[2024-11-14] MEDS: NIFEdipine ER 30 MG TAB PO ONE (12:22)
--- NOTE | 2024-11-14 14:21 | DVH ---
EXAMINATION: MRI BRAIN HEAD WO CONTRAST INDICATION: R/o CVA COMPARISON: CT head 11/13/2024 TECHNIQUE: Multiplanar, multisequence magnetic resonance imaging of the brain was performed without t he use of intravenous contrast. FINDINGS: There is no restricted diffusion. The chauhan and white matter signal is appropriate. There is no eviden ce of hemorrhage, mass, mass effect or midline shift. There is no hydrocephalus or extra-axial fluid collection. The visualized intracranial vasculature demonstrates appropriate flow-voids. The sagittal midline structures appear unremarkable. The craniocervical junction is within normal limits. The rosendo varium demonstrates normal marrow signal. There is a retention cyst in the left maxillary sinus. The paranasal sinuses and mastoid air cells are otherwise clear. IMPRESSION: 1. There is no acute intracranial process. HS:Y
[2024-11-14] MEDS: metroNIDAZOLE 500MG/100ML 100 ML IV SCH (14:36)
[2024-11-14] MEDS: MORPHINE SULFATE INJ 2 MG/ml SYRG IV PRN (14:38)
[2024-11-14 17:00] VITALS: BP 156/95; PULSE 87; RESP 18; TEMP 98.2; O2SAT 96
[2024-11-14] MEDS ORDERED: FUROSEMIDE 20 MG/2 ML VIAL IV SCH (19:45)
[2024-11-14 20:00] VITALS: PULSE 102; PULSE 97; RESP 18; O2SAT 93
[2024-11-14 21:00] VITALS: BP 127/86; PULSE 102; RESP 19; TEMP 97.9; O2SAT 93
[2024-11-14] MEDS: LACTATED RINGER'S 1,000 ML IV SCH (22:45)
[2024-11-14] MEDS: CARVEDILOL 12.5 MG TAB PO SCH (22:46)
--- NOTE | 2024-11-14 23:13 | DVHSR ---
APPROVED REPORT EXAM: Two-dimensional and M-mode echocardiogram with Doppler and color Doppler. Mitral Valve MitralMitral Stenosis E/A ratio0.02D MVAcm2 LEFT VENTRICLE The left ventricle is normal size. There is normal left ventricular wall thickness. The left ventricle is normal in structure and function. Left ventricle systolic function is normal. The Ejection Fraction is 55-60%. No regional wall motion abnormalities noted. RIGHT VENTRICLE The right ventricle is normal size. There is normal right ventricular wall thickness. The right ventricular systolic function is normal. ATRIA The left atrium size is normal. The right atrium size is normal. The interatrial septum is intact with no evidence for an atrial septal defect. MITRAL VALVE The mitral valve is normal in structure and function. There is no evidence of mitral valve prolapse. There is no mitral valve stenosis. There is no mitral valve regurgitation noted. PULMONIC VALVE The pulmonary valve is normal in structure and function. There is no pulmonic valvular regurgitation. There is no pulmonic valvular stenosis. TRICUSPID VALVE The tricuspid valve is normal in structure and function. There is no tricuspid valve regurgitation noted. There is no tricuspid valve prolapse or vegetation. There is no tricuspid valve stenosis. AORTIC VALVE The aortic valve is normal in structure and function. No aortic regurgitation is present. There is no aortic valvular stenosis. There is no aortic valvular vegetation. GREAT VESSELS The aortic root is normal in size. PERICARDIAL EFFUSION There is a no pericardial effusion. Conclusion There is normal left ventricular wall thickness. The left ventricle is normal in structure and function. Left ventricle systolic function is normal. The Ejection Fraction is 55-60%. There is no gross valvular pathology There is a no pericardial effusion.
[2024-11-15 01:00] VITALS: BP 104/80; PULSE 93; RESP 19; TEMP 98.2; O2SAT 93
[2024-11-15 06:08] LABS: Basophils # (auto) 0 10 ^3/uL (0-0.2); Basophils % (auto) 0.2 % (0.0-2.0); Eosinophils # (auto) 0.2 10 ^3/uL (0-0.8); Eosinophils % (auto) 1.5 % (0.0-7.0); Hemoglobin 9.7 g/dL (12.2-16.2); Lymphocytes # (auto) 2.3 10 ^3/uL (0.4-5.4); Lymphocytes % (auto) 20.6 % (10.0-50.0); Mean Corpuscular Hemoglobin 31.4 pg (28.0-32.0); Mean Corpuscular Hgb Conc. 33.6 g/dL (32.0-36.0); Mean Corpuscular Volume 93.5 fL (80.0-100.0); Monocytes # (auto) 0.8 10 ^3/uL (0-1.3); Monocytes % (auto) 7.2 % (0.0-12.0); Neutrophils # (auto) 7.9 10 ^3/uL (1.6-8.6); Neutrophils % (auto) 70.5 % (37.0-80.0); Nucleated Red Blood Cells % 0.1 %; Platelet Count (auto) 122 10^3/uL (140-450); Red Cell Distribution Width 15.9 % (11.8-14.3); White Blood Cell 11.1 10^3/uL (4.4-10.8)
[2024-11-15 06:30] LABS: Alkaline Phosphatase 81 U/L (46-116); Anion Gap 12 (5-15); Aspartate Aminotransferase 13 U/L (13-40); BUN/Creatinine Ratio 12.1 (10.0-20.0); Carbon Dioxide 29 mmol/L (20-31); Glucose 102 mg/dL (74-106)
[2024-11-15 06:31] LABS: Alanine Aminotransferase < 9 U/L (7-40); Albumin 3.1 g/dL (3.2-4.8); Blood Urea Nitrogen 63 mg/dL (9-23); Calcium 8.6 mg/dL (8.7-10.4); Chloride 93 mmol/L (98-107); Potassium 2.9 mmol/L (3.5-5.1); Sodium 134 mmol/L (136-145)
[2024-11-15 06:49] LABS: Bilirubin, Total < 0.2 mg/dL (0.2-1.0)
[2024-11-15 08:00] VITALS: BP 119/68; PULSE 77; RESP 18; TEMP 97.8; O2SAT 92
[2024-11-15] MEDS: PANTOPRAZOLE 40 MG/10 ML VIAL INJ IV SCH (09:34)
[2024-11-15] MEDS: cefTRIAXone 1GM/50ML D5W 50 ML IV SCH (09:35)
[2024-11-15] MEDS: NIFEdipine ER 30 MG TAB PO SCH (09:54)
[2024-11-15 10:07] LABS: Free Thyroxine Index 0.9 (1.2-4.9); Thyroxine (T4) 3.2 ug/dL (4.5-12.0)
--- NOTE | 2024-11-15 10:15 | DVH ---
ULTRASOUND RENAL CLINICAL INDICATION: Ruled out renal artery stenosis TECHNIQUE: Real-time sonographic, duplex, and color Doppler images of the kidneys were obtained. FINDINGS: No evidence for renal artery stenosis. Resistive indices within normal limits. IMPRESSION: Normal examination. [<reference, normal RI <.7>]
[2024-11-15 12:00] VITALS: BP 140/77; PULSE 76; RESP 18; TEMP 97.8; O2SAT 96
[2024-11-15] MEDS: POTASSIUM CHL 20MEQ/100ML 100 ML IV SCH ×2 (13:28→18:00)
--- NOTE | 2024-11-15 15:12 | DVHPN2 ---
Progress Note Date Seen: November 15, 2024 Resident Creating Document: SAM DURANT RESIDENT Has the PT tested + for MRSA If YES, has PT been informed?: No Medical Necessity Reason Pt with a Central, PICC or Fol: No Subjective Review of Systems This is a 39-year-old with PMH right frontal/parietal lobe CVA 2022, CKD 3, hypertension cervical carcinoma status post scraping, does not follow up oncologist who presented to the ER with a chief complaint of recurrent falls, generalized weakness and blurred vision for the past 2 days. Patient reports that the blurred vision initially started 2 weeks back when she went to [facility] and was diagnosed with sepsis and UTI, patient left AMA. She has been experiencing blurred vision from the left eye and reports a black spot on the temporal side of the vision. Over the past 4 days, patient experienced anuria and bilateral flank pain radiating to the groin, sharp in nature, she would feel the urge but could not urinate. For the past 2 days, patient reported 7 mechanical fall because her legs would give up and she has been experiencing generalized weakness. She hit her head but did not lose consciousness or experienced any seizure-like movements. She did not lose her urine or bowel during these episodes. Prior to the episodes, patient would ambulate without the use of walker/cane. Associated symptoms include jerking like headache mostly occipital, movements and muscle spasms and twitching of her lower, upper extremities including her jaw. Reports compliance with her antihypertensive regimen Patient underwent kidney biopsy at [facility] 07/2024-does not remember results On arrival to the ER, patient had uncontrolled blood pressure 194/129 which reached up to 200 systolic. BUN/creatinine 52/4.7 which trended up to 60/5.4. Patient also had troponin elevation. Chest x-ray shows cardiomegaly with pulmonary vascular congestion. UA showed 2+ blood and 9 RBCs. Past medical history: right frontal/parietal lobe CVA 2022, CKD 3, hypertension Social history: Lives with mother, Smokes 6 cigarettes a day for the past 15 years, denies drinking/illicit drug use Home medications: Amlodipine 10, aspirin, losartan 100 mg, metoprolol 100 mg b.i.d., hydralazine 25 mg b.i.d. Patient follows Dr. Hernandez outpatient Nephrology consulted for renal failure 11/14-Patient seen and examined at the bedside. Has bilateral upper and lower extremity motor weakness, sensory is intact. No facial asymmetry noted. Raines catheter was placed, and patient urinated [address] was negative. MRI negative. Patient did not receive any fluids so far, orders were discontinued. Patient received 40 mg IV Lasix on 11/13 and has been receiving 20 mg Lasix daily. Renal ultrasound shows increased renal parenchymal echogenicity which can be seen with medical renal disease 11/15- patient seen and examined at the bedside. Urine output 2400 cc per 24 hours. Still feels weak. Blood pressure 150/80 mmHg. BUN/creatinine 63/5.2, GFR stable at 6 3. Continue LR 75 cc/hour. CK/myoglobin levels pending. Objective vital signs Vital Sign Date Time Temp Pulse Resp B/P (MAP) Pulse Ox O2 Delivery O2 Flow Rate FiO2 11/15/24 10:53 81 155/86 11/15/24 10:25 16 11/15/24 08:00 97.8 92 97.8 11/14/24 20:00 Room Air* 0 21 Total Intake and Output 11/14/24 11/14/24 11/15/24 15:00 23:00 07:00 Intake Total 420 ml 500 ml Output Total 1450 ml 350 ml 700 ml Balance -1450 ml 70 ml -200 ml medications Current Medications Medications Dose Ordered Sig/[place] Route Start Time Stop Time Status Last Admin Dose Admin Atorvastatin Calcium 40 mg HS PO 11/13/24 22:00 11/14/24 22:45 40 MG Clopidogrel Bisulfate 75 mg DAILY PO 11/14/24 10:00 Cancel Aspirin 81 mg DAILY PO 11/14/24 10:00 Cancel Ondansetron HCl 4 mg Q4HP PRN IV 11/13/24 20:00 11/14/24 08:09 4 MG Acetaminophen 650 mg Q6HP PRN PO 11/13/24 20:00 Nitroglycerin 0.4 mg Q5MINP PRN SL 11/13/24 20:00 Morphine Sulfate 2 mg Q30M PRN IV 11/13/24 20:00 Acetaminophen/ Hydrocodone Bitart 1 tab Q4HPRN PRN PO 11/13/24 22:00 11/15/24 13:45 1 TAB Hydralazine HCl 10 mg Q6HP PRN IV 11/14/24 07:15 11/14/24 11:46 10 MG Morphine Sulfate 2 mg Q4HPRN PRN IV 11/14/24 09:45 11/15/24 09:55 2 MG Ceftriaxone Sodium 50 ml @ 100 mls/hr DAILY@09 IV 11/15/24 09:00 11/15/24 09:35 100 MLS/HR Metronidazole 100 ml @ 100 mls/hr Q8HR IV 11/14/24 14:00 11/15/24 05:49 100 MLS/HR Ergocalciferol 50,000 unit Q7D PO 11/14/24 11:00 11/14/24 11:37 50,000 UNIT Pantoprazole Sodium 40 mg DAILY IV 11/15/24 10:00 11/15/24 09:34 40 MG Nifedipine 90 mg DAILY PO 11/15/24 10:00 11/15/24 09:54 90 MG Carvedilol 25 mg Q12HR PO 11/14/24 22:00 11/15/24 09:53 25 MG Lactated Ringer's 1,000 ml @ 75 mls/hr [id number] IV 11/14/24 19:45 11/14/24 22:45 75 MLS/HR Examination Patient lying in bed, with twitching like movement of bilateral lower and upper extremities. Patient has left lateral vision loss General: Obese, afebrile, palor, mucosae are moist Cardiovascular: Regular S1 and S2. No murmurs, gallops or rubs. No JVD elevation. No pedal edema Respiratory: Normal B/L air entry on room air. Clear lung sounds on auscultation Abdomen: Soft, nontender, nondistended, normoactive bowel sounds, no rebound tenderness, no organomegaly, no masses Genitourinary: Raines catheter seen draining clear urine. MSK/skin: Mobilizes 4 limbs. Skin is dry and warm Neurological: Bilateral upper and lower extremity motor weakness. No sensory deficit. No facial asymmetry.. Pupils are isocoric and reactive. Psych/Mental Status: A/Ox3 laboratory and microbiology Laboratory Tests 11/15/24 04:51 Test 11/15/24 04:51 Range/Units Serum Glucose 102 74-106 mg/dL Microbiology Date/Time Source Procedure Growth Status 11/13/24 17:25 Urine - [place] Urine Culture - Preliminary Resulted Labs and/or images reviewed: Labs reviewed by me, Image(s) reviewed by me Problem List/Assessment/Plan Problem List/Assessment/Plan ALEXANDER superimposed on CKD secondary to hypertensive emergency Rule out obstruction Acute onset weakness lower ext/ twitches Chronic kidney disease IIIb versus 4 Rule out stroke Left temporal vision loss Hypertensive emergency Acute gastro Enteritis NSTEMI Hypokalemia History of stroke 04/2023 with residual left-sided weakness History of small PFO 2022 History of atrial septal aneurysm 2022 Vitamin B12 deficiency Vitamin-D deficiency Secondary hyperparathyroidism ? Secondary hypothyroidism Nicotine dependence History of cervical cancer status post removal-does not follow oncologist Raines catheter was placed, and patient urinated [address] was negative. MRI negative. Renal ultrasound shows increased renal parenchymal echogenicity which can be seen with medical renal disease creatinine was 1.53, GFR 45 09/18/2023 Plan: Kidney function stable, continue IV LR 75 cc/hours Renal duplex unremarkable Strict I&Os, continue Raines catheter placement Patient received IV labetalol and hydralazine IV for uncontrolled hypertension. Started on nifedipine 90 mg daily, Coreg 25 mg b.i.d. Follow up with CK/myoglobin/urine myoglobin levels. Follow up with secondary workup for hypertensive emergency including renin/aldosterone level, metanephrines, urine potassium and urine electrolytes, renal duplex, Echocardiogram and cortisol levels unremarkable Patient under kidney biopsy 07/2024 at [place]-results unknown to patient We will closely follow the patient Patient was counseled regarding the need for follow up with her PCP and oncologist Plan discussed with patient in which all questions have been answered Case discussed with Dr. Ortiz Addendum Patient seen and examined, plan discussed with resident. 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 Plan discussed with: Patient My Orders My Orders Orders - SAM DURANT RESIDENT Procedure Category Date Status Time Urine Sodium LAB 11/14/24 Logged 17:53 Urine LAB 11/14/24 Logged Protein/Creatinine 17:53 Urine Potassium LAB 11/14/24 Logged 17:53 Metanephrines Frac LAB 11/14/24 In Process Free Plasma 17:53 Renin Activity And LAB 11/14/24 In Process Aldosterone 17:53 Renal Artery Lmtd US 11/15/24 Resulted 08:00 Communication Order ORDERS 11/15/24 Transmitted 09:03 Pt Request For Service PT 11/15/24 Logged 13:20 Myoglobin LAB 11/15/24 In Process 13:35 SAM DURANT RESIDENT November 15, 2024 15:12 ATUL ORTIZ MD November 15, 2024 21:04
--- NOTE | 2024-11-15 15:37 | DVHPNRES ---
Progress Note Date Seen: November 15, 2024 Resident Creating Document: RYAN ESTRADA RESIDENT Has the PT tested + for MRSA If YES, has PT been informed?: No Medical Necessity Reason Pt with a Central, PICC or Fol: No Subjective Review of Systems Patient seen and examined at the bedside. Patient reported improvement in her symptoms since admission, reported no new complaints. Continuously monitoring her blood pressure and lab. Continue current management. Patient reports: Feels better Objective vital signs Vital Sign Date Time Temp Pulse Resp B/P (MAP) Pulse Ox O2 Delivery O2 Flow Rate FiO2 11/15/24 10:53 81 155/86 11/15/24 10:25 16 11/15/24 08:00 97.8 92 97.8 11/14/24 20:00 Room Air* 0 21 Total Intake and Output 11/14/24 11/14/24 11/15/24 15:00 23:00 07:00 Intake Total 420 ml 500 ml Output Total 1450 ml 350 ml 700 ml Balance -1450 ml 70 ml -200 ml medications Current Medications Medications Dose Ordered Sig/Reno Route Start Time Stop Time Status Last Admin Dose Admin Atorvastatin Calcium 40 mg HS PO 11/13/24 22:00 11/14/24 22:45 40 MG Clopidogrel Bisulfate 75 mg DAILY PO 11/14/24 10:00 Cancel Aspirin 81 mg DAILY PO 11/14/24 10:00 Cancel Ondansetron HCl 4 mg Q4HP PRN IV 11/13/24 20:00 11/14/24 08:09 4 MG Acetaminophen 650 mg Q6HP PRN PO 11/13/24 20:00 Nitroglycerin 0.4 mg Q5MINP PRN SL 11/13/24 20:00 Morphine Sulfate 2 mg Q30M PRN IV 11/13/24 20:00 Acetaminophen/ Hydrocodone Bitart 1 tab Q4HPRN PRN PO 11/13/24 22:00 11/15/24 13:45 1 TAB Hydralazine HCl 10 mg Q6HP PRN IV 11/14/24 07:15 11/14/24 11:46 10 MG Morphine Sulfate 2 mg Q4HPRN PRN IV 11/14/24 09:45 11/15/24 09:55 2 MG Ceftriaxone Sodium 50 ml @ 100 mls/hr DAILY@09 IV 11/15/24 09:00 11/15/24 09:35 100 MLS/HR Metronidazole 100 ml @ 100 mls/hr Q8HR IV 11/14/24 14:00 11/15/24 05:49 100 MLS/HR Ergocalciferol 50,000 unit Q7D PO 11/14/24 11:00 11/14/24 11:37 50,000 UNIT Pantoprazole Sodium 40 mg DAILY IV 11/15/24 10:00 11/15/24 09:34 40 MG Nifedipine 90 mg DAILY PO 11/15/24 10:00 11/15/24 09:54 90 MG Carvedilol 25 mg Q12HR PO 11/14/24 22:00 11/15/24 09:53 25 MG Lactated Ringer's 1,000 ml @ 75 mls/hr [id number] IV 11/14/24 19:45 11/14/24 22:45 75 MLS/HR Examination Pt is lying on bed General Appearance: Alert, Oriented X3, Cooperative, In severe distress HEENT: Atraumatic, Mucous membranes moist/pink Respiratory: Clear to auscultation, Normal air movement, No added sounds Cardiovascular: Normal rate, Normal S1, Normal S2, No murmurs Abdominal: generalized abdominal tenderness, flank tenderness improved since yesterday Extremities: No edema, Normal pulses, No tenderness/swelling Skin: No Significant rash, except past surgical scars Neuro: Normal speech, sensation is intact but decreased strength globally Psych/Mental Status: Mental status NL, Mood NL Nurse was there as sharperone during examination laboratory and microbiology Laboratory Tests 11/15/24 04:51 Test 11/15/24 04:51 Range/Units Serum Glucose 102 74-106 mg/dL Microbiology Date/Time Source Procedure Growth Status 11/13/24 17:25 Urine - [place] Urine Culture - Preliminary Resulted Labs and/or images reviewed: Labs reviewed by me, Image(s) reviewed by me Problem List/Assessment/Plan Problem List/Assessment/Plan # HTN emergency with end-organ damage # HTN uncontrolled # NSTEMI 2 likely due to above # ALEXANDER on CKD likely ATN # R/o acute cva - head CT, brain MRI showed no acute changes - labetalol and hydralazine as needed - Nifedipine 90 mg daily, Coreg 25 mg b.i.d. - elevated troponins - DC metoprolol - continuously monitor blood pressure - nephrology consult on board - renal ultrasound showed chronic changes - Lasix 20 mg due to pulmonary vascular congestion - 2D echo showed ejection fraction 55-60% - renal duplex scan unremarkable - Strict I&Os, continue Raines catheter placement # Secondary hyperparathyroidism # ? Secondary hypothyroidism - decreased T3, T4, T3 - elevated a.m. cortisol, ordered a CT head # Nicotine dependence-counseled regarding cessation for more than 17 minutes, nicotine patch # History of cervical cancer status post removal-does not follow oncologist # Ruled out PNA # Hypokalemia - Repleting - Monitor lab # Sepsis likely from below # Enteritis - Rocephin and Flagyl # Vit D deficiency # Vitamin B12 deficiency - Repleting # thrombocytopenia - monitor lab for now # History of stroke 04/2023 with residual left-sided weakness # History of small PFO 2022 # History of atrial septal aneurysm 2022 Protonix SCD Cardiac/Renal diet Goals of care discussed with the patient for more than 29 minutes: Full code status Case management discussed with Dr. Bazzi, patient and nurse Plan discussed with: Patient My Orders My Orders Orders - RYAN ESTRADA Procedure Category Date Status Time Adrenocorticotropic LAB 11/15/24 In Process Hormone 11:01 Myoglobin Urine LAB 11/15/24 Logged 13:38 Date of Service: November 15, 2024 Billing Provider: FAIZAN ADLER MD Common Visit Codes: [id number] INP/OBS CARE(HIGH) RYAN ESTRADA November 15, 2024 15:37 FAIZAN ADLER MD November 17, 2024 01:16
[2024-11-15 16:00] VITALS: BP 144/78; PULSE 82; RESP 18; TEMP 97.9; O2SAT 96
[2024-11-15] MEDS: LEVOTHYROXINE SODIUM 25 MCG TAB PO ONE (17:39)
--- NOTE | 2024-11-15 18:53 | DVHINCON2 ---
Date of service: November 15, [address] Swanson Reason for Consultation Leg twitch and weakness History of Present Illness Ms. Ervin is a 39 years old left-handed female with a history of hypertension, anxiety, migraine headache, chronic pain syndrome, the patient came to the hospital on 11/13/24 with a chief complaint of general weakness. But she also has other complaints. At this time, she is alert and fully oriented, she provided the following history I saw on 04/20/2023 for syncope (MRI: acute stroke) She was noticed intermittent jerking movement involving the arms and the legs since 11/11/2024, without altered mental status or confusion Since 11/12/2024, he was reports progressive weakness in the legs, she was had 8-9 falls on 11/12/2024, one fall on . She has chronic back pain, recently, she has noticed pain shooting from the back to bilateral upper abdomen, and bilateral groin areas. Occasionally coughing can trigger pain shooting to bilateral groin areas. She denies difficulty with bowel/bladder control She had Stroke in 04/2023, WBC/HB/PLT/MCV, 11/15/2024: 11.1/9.7/122/93.5 BUN/CR, 11/13/2024: 52/4.75 11/15/24: 63/5.2 Liver function tests, 11/15/2024: Unremarkable TG/CHO L/LDL/HDL, 04/2023: 251/189/113/29, 11/13/2024: 282/178/85/36 Vitamin B12, 04/2023: 248, 11/14/2024: 154 VitD, 11/14/2024: 8.6 TSH, 04/2023: 0.46 FT4, 11/14/2024: 0.74 Complement 3, 04/21/2023: 208 KALIA, 04/25/23: Echo finding is keeping with a moderate size atrial septal aneurysm with small patent foramen ovale evident by positive bubble study No other source of embolus was identified in the KALIA study that was done today. Echocardiogram, 11/14/2024: There is normal left ventricular wall thickness. The left ventricle is normal in structure and function. Left ventricle systolic function is normal. The Ejection Fraction is 55-60%. There is no gross valvular pathology There is a no pericardial effusion. Carotid Doppler, 04/20/2023: No hemodynamically significant stenosis in the carotid arteries Chest x-ray, 04/20/2023: Hazy basilar lung densities question atelectasis/infiltrate CT headache, 04/20/2023: No acute intracranial abnormality MRI headache, 04/21/2023: Restricted diffusion involving the right frontal and parietal lobe, representing acute infarct Past Medical History Hypertension, anxiety, migraine headache, chronic neck pain, back pain Past Surgical History Abdominal surgery, cholecystectomy, tonsillectomy, bilateral carpal tunnel release, bilateral ulnar nerve transposition Family History: Cardiovascular disease G8 MOTHER G8 FATHER G8 SISTER Glaucoma G8 MOTHER Hypertension G8 SISTER Family History Hypertension, dyslipidemia, heart disease, kidney failure, cancer. Social History She smokes, but no history of alcohol recreational substance abuse Allergies: Coded Allergies: NO KNOWN ALLERGIES (Unverified , 12/21/13) Home Meds Active Scripts Cyclobenzaprine Hcl (Cyclobenzaprine Hcl) 5 Mg Tab, 5 MG PO BID for 3 Days, #6 TAB Prov:HANY HERNANDEZ MD 06/18/23 Amlodipine Besylate (Amlodipine Besylate) 10 Mg Tab, 1 TAB PO DAILY, #30 TAB 5 Refills Prov:MARVEL BELL MD 04/25/23 Clopidogrel Bisulfate (CLOPIDOGREL) 75 Mg Tab, 75 MG PO DAILY for 30 Days, #30 TAB Prov:MARVEL BELL MD 04/25/23 Atorvastatin Calcium (ATORVASTATIN CALCIUM) 20 Mg Tab, 40 MG PO HS for 30 Days, #60 TAB Prov:MARVEL BELL MD 04/25/23 Aspirin (Aspirin Low Dose) 81 Mg Tab, 81 MG PO DAILY for 30 Days, #30 TAB Prov:MARVEL BELL MD 04/25/23 Reported Medications Gabapentin (Gabapentin) 300 Mg Cap, 300 MG PO TID for 30 Days, MG 04/21/23 Hydrocodone-Acetaminophen (Hydrocodone Bitartrate/AC 10-325 mg) 1 Tab Tab, 1 TAB PO BID, TAB 04/21/23 Atorvastatin Calcium (ATORVASTATIN CALCIUM) 20 Mg Tab, 1 TAB PO DAILY, #30 TAB 5 Refills 04/21/23 Metoprolol Tartrate (Metoprolol Tartrate) 100 Mg Tab, 100 MG PO BID for 30 Days, MG 04/21/23 Losartan Potassium (Losartan Potassium) 100 Mg Tab, 100 MG PO DAILY for 30 Days, MG 04/21/23 Torsemide Injection (Torsemide) 20 Mg Tab, 20 MG PO DAILY, TAB 04/21/23 Current Medications Current Medications Medications (Trade) Dose Ordered Sig/Reno Route PRN Reason Start Time Stop Time Status Last Admin Ceftriaxone Sodium 50 ml @ 100 mls/hr DAILY@09 IV 11/15/24 09:00 11/15/24 09:35 Pantoprazole Sodium (Protonix) 40 mg DAILY IV 11/15/24 10:00 11/15/24 09:34 Nifedipine (Procardia Xl (Time-Release)) 90 mg DAILY PO 11/15/24 10:00 11/15/24 09:54 Carvedilol (Coreg Tablet) 25 mg Q12HR PO 11/14/24 22:00 11/15/24 09:53 Furosemide (Lasix Injection) 40 mg BID IV 11/14/24 19:45 11/14/24 19:38 DC Lactated Ringer's 1,000 ml @ 75 mls/hr [id number] IV 11/14/24 19:45 11/14/24 22:45 Potassium Chloride 100 ml @ 50 mls/hr Q2H IV 11/15/24 09:15 11/15/24 13:14 DC 11/15/24 18:25 Levothyroxine Sodium (Synthroid Tablet) 25 mcg QAM@0600 PO 11/16/24 06:00 Potassium Chloride 100 ml @ 50 mls/hr Q2H IV 11/15/24 18:00 11/15/24 19:59 Review of Systems As aforementioned, the other systems are negative Vital Signs Vital Signs Date Time Temp Pulse Resp B/P (MAP) Pulse Ox O2 Delivery O2 Flow Rate FiO2 11/15/24 16:33 84 16 132/92 11/15/24 16:00 97.9 96 97.9 11/15/24 08:30 Room Air* 0 21 Physical Exam GENERAL EXAM: General: the patient is well developed and nourished. No acute distress. HEENT: Normocephalic, neck is supple, no carotid bruits. No mass. The throat is Mallampati grade RESPIRATORY: Normal respiratory effort with symmetrical lung expansion. Lungs clear to auscultation. CARDIOVASCULAR: Regular rate and rhythm with no murmurs. S1, S2. ABDOMEN: Soft, nontender, normal bowel sound Diffuse tenderness in the neck, and whole back NEUROLOGICAL: MENTAL STATUS: Awake and alert. Oriented to person, place, time and general circumstances. Able to give personal history. SPEECH, LANGUAGE, HIGHER CORTICAL FUNCTION: no aphasia or dysathria. CRANIAL NERVES: #2: Intact visual campbell to confrontation. The optic discs were sharp. Retinal b ackground was uniformly pink in appearance. There was no hemorrhages or exudates. #3,4,6: Pupils are equal, round and reactive. EOMs full and conjugate. Mild bilateral gaze evoked nystagmus. #5: Facial sensation intact in all three divisions bilaterally. Mandibular strength intact. #7: Facial muscles symmetrical and strength intact. #8: Hearing grossly normal to voice. #9,10: Uvula and soft palate rise in the midline. Swallow and voice are normal. #11: Trapezius and sternomastoid strength intact bilaterally. #12: Tongue midline. No fasciculations or atrophy. SENSATION: Sensation to touch and pinprick is diminished in the left arm than leg MOTOR: Normal tone in the upper and lower extremity. Normal muscle bulk. No fasciculations. No abnormal movements or posturing. Muscle strength of the major groups in the right extremities is 5/5. Muscle strength of the major groups in the left extremities is 4/5. REFLEXES: Deep tendon reflexes a strong in the left leg. No pathological reflexes. CEREBELLAR/COORDINATION: Finger to nose is normal bilaterally. GAIT/STATION: deferred. Labs/Diagnostic Data Labs Test 11/15/24 12:02 11/15/24 08:00 11/15/24 04:51 11/14/24 18:34 Range/Units Cortisol AM Sample 33.06 H 5.27-22.45 ug/dL White Blood Count 11.1 H 4.4-10.8 10^3/uL Red Blood Count 3.10 L 4.0-5.20 10^6/uL Hemoglobin 9.7 L 12.2-16.2 g/dL Hematocrit 29.0 #L 36.0-46.0 % Mean Corpuscular Volume 93.5 80.0-100.0 fL Mean Corpuscular Hemoglobin 31.4 28.0-32.0 pg Mean Corpuscular Hemoglobin Concent 33.6 32.0-36.0 g/dL Red Cell Distribution Width 15.9 H 11.8-14.3 % Platelet Count 122 L 140-450 10^3/uL Mean Platelet Volume 9.0 6.9-10.8 fL Neutrophils (%) (Auto) 70.5 37.0-80.0 % Lymphocytes (%) (Auto) 20.6 10.0-50.0 % Monocytes (%) (Auto) 7.2 0.0-12.0 % Eosinophils (%) (Auto) 1.5 0.0-7.0 % Basophils (%) (Auto) 0.2 0.0-2.0 % Neutrophils # (Auto) 7.9 1.6-8.6 10 ^3/uL Lymphocytes # (Auto) 2.3 0.4-5.4 10 ^3/uL Monocytes # (Auto) 0.8 0-1.3 10 ^3/uL Eosinophils # (Auto) 0.2 0-0.8 10 ^3/uL Basophils # (Auto) 0 0-0.2 10 ^3/uL Nucleated Red Blood Cells 0.1 % Sodium Level 134 L 136-145 mmol/L Potassium Level 2.9 L 3.5-5.1 mmol/L Chloride Level 93 L 98-107 mmol/L Carbon Dioxide Level 29 20-31 mmol/L Anion Gap 12 5-15 Blood Urea Nitrogen 63 H 9-23 mg/dL Creatinine 5.20 H 0.550-1.02 mg/dL Glomerular Filtration Rate Calc 10 >90 mL/min BUN/Creatinine Ratio 12.1 10.0-20.0 Serum Glucose 102 74-106 mg/dL Calcium Level 8.6 L 8.7-10.4 mg/dL Magnesium Level 2.2 1.6-2.6 mg/dL Total Bilirubin < 0.2 L 0.2-1.0 mg/dL Aspartate Amino Transferase (AST) 13 13-40 U/L Alanine Aminotransferase (ALT) < 9 7-40 U/L Alkaline Phosphatase 81 46-116 U/L Creatine Kinase 79 34-145 U/L Total Protein 5.0 L 5.7-8.2 g/dL Albumin 3.1 L 3.2-4.8 g/dL Test 11/14/24 07:40 11/14/24 07:35 11/14/24 07:28 11/14/24 05:48 Range/Units Influenza Type A Antigen Negative Negative Influenza Type B Antigen Negative Negative SARS-CoV-2 Antigen (Rapid) Negative NEGATIVE Lactic Acid Level 1.9 0.4-2.0 mmol/L Vitamin B12 Level 154 L 211-911 pg/mL Vitamin D 25-Hydroxy 8.6 L 30.0-100 ng/mL Free Thyroxine (T4) Calculated 0.74 L 0.89-1.76 ng/dL Total Triiodothyronine (TT3) 0.29 L 0.60-1.81 ng/mL Hemoglobin A1c 4.6 <5.7 % A1C Phosphorus Level 5.3 H 2.4-5.1 mg/dL Free Thyroxine Index 0.9 L 1.2-4.9 Thyroxine (T4) 3.2 L 4.5-12.0 ug/dL Triiodothyronine (T3) Uptake 28 24-39 % Parathyroid Hormone (Intact) 241.5 H 18.4-80.1 pg/mL Plasma/Serum Blood Alcohol < 3.0 <10 mg/dL Test 11/13/24 21:26 11/13/24 20:01 11/13/24 17:25 11/13/24 12:50 Range/Units Troponin I High Sensitivity 140 *H </=34 ng/L Triglycerides Level 282 H < 150 mg/dL Cholesterol Level 178 < 200 mg/dL LDL Cholesterol 85 < 100 mg/dL HDL Cholesterol 36 L 40-59 mg/dL Thyroid Stimulating Hormone (TSH) 0.38 L 0.55-4.78 uIU/mL B-Type Natriuretic Peptide 113.24 0-100 pg/mL Urine Color Yellow Yellow Urine Clarity Clear Clear Urine pH 5.5 5.0-9.0 Urine Specific [place] 1.017 1.001-1.035 Urine Protein 2+ H Negative Urine Ketones Negative Negative Urine Blood 2+ H Negative /uL Urine Nitrite Negative Negative Urine Bilirubin Negative Negative Urine Urobilinogen Normal Negative mg/dL Urine Leukocyte Esterase Negative Negative /uL Urine RBC 9 0 - 4 /hpf Urine Microscopic WBC 3 0-5 /HPF Urine Squamous Epithelial Cells None seen <5 /hpf Urine Bacteria None seen None Seen /hpf Urine Glucose Normal Normal mg/dL Platelet Estimate Decrea Large Platelets Few Microbiology Date/Time Source Procedure Growth Status 11/13/24 17:25 Urine - [place] Urine Culture - Preliminary Resulted Assessment Jerking in the arms and legs, likely myoclonus secondary to kidney failure Chronic stroke with residual left-sided mild weakness Chronic back pain, with pain shooting to bilateral upper stomach and bilateral groin area, to rule out T-spine and C-spine radiculopathy PFO Anemia Vitamin B12 deficiency Vitamin-D deficiency Plan/Recommendation Monitoring Supportive treatment Telemetry Follow up vitamin B12 level Folic acid level Occult stool blood test MRI T-spine, MRI lumbar spine Resume Aspirin 81 mg daily (Low Hb) Lipitor 40 mg daily Vitamin B12 supplementation Vitamin-D supplementation Up to chair Physical therapy Nephrology on case GI Re: Vitamin B12 deficiency More recommendation per clinical course Prognosis: Poor This medical document was created using an electronic medical record system with [employer] computerized dictation system. Although this document has been carefully reviewed, there may still be some phonetic and typographical errors. These areas are purely typographical due to imperfections of the software programs, and do not reflect any compromise in the patient's medical care. Plan discussed with: Patient, Other PHOENIX ANTON MD November 15, 2024 18:53
[2024-11-15 20:00] VITALS: PULSE 87; RESP 18; O2SAT 93
[2024-11-15] MEDS: LORazepam 2MG/ML-1ML VIAL IV PRN (20:59)
[2024-11-15 21:00] VITALS: BP 146/82; PULSE 90; RESP 18; TEMP 97.9; O2SAT 98
[2024-11-15] MEDS: MORPHINE SULFATE INJ 2 MG/ml SYRG IV PRN (21:00)
[2024-11-15] MEDS: LORazepam 2MG/ML-1ML VIAL IV ONE (21:04)
[2024-11-16] VITALS (8 sets, daily range): BP systolic 114–155; BP diastolic 60–86; PULSE 80–92; RESP 15–20; TEMP 97.6–98.2; O2SAT 93–99
[2024-11-16] MEDS ORDERED: LEVOTHYROXINE SODIUM 25 MCG TAB PO SCH (06:00)
[2024-11-16 06:22] LABS: Basophils # (auto) 0 10 ^3/uL (0-0.2); Basophils % (auto) 0.4 % (0.0-2.0); Eosinophils # (auto) 0.3 10 ^3/uL (0-0.8); Hemoglobin 9.5 g/dL (12.2-16.2); Lymphocytes # (auto) 2.4 10 ^3/uL (0.4-5.4); Lymphocytes % (auto) 23.3 % (10.0-50.0); Mean Corpuscular Hemoglobin 31.5 pg (28.0-32.0); Mean Corpuscular Hgb Conc. 33.8 g/dL (32.0-36.0); Mean Corpuscular Volume 93.1 fL (80.0-100.0); Monocytes # (auto) 0.8 10 ^3/uL (0-1.3); Monocytes % (auto) 7.8 % (0.0-12.0); Neutrophils # (auto) 6.6 10 ^3/uL (1.6-8.6); Neutrophils % (auto) 65.5 % (37.0-80.0); Platelet Count (auto) 207 10^3/uL (140-450); Red Blood Cells 3.01 10^6/uL (4.0-5.20); Red Cell Distribution Width 16.1 % (11.8-14.3); White Blood Cell 10.1 10^3/uL (4.4-10.8)
[2024-11-16 06:38] LABS: Alanine Aminotransferase 10 U/L (7-40); Alkaline Phosphatase 86 U/L (46-116); Anion Gap 11 (5-15); BUN/Creatinine Ratio 13.9 (10.0-20.0); Carbon Dioxide 27 mmol/L (20-31); Chloride 103 mmol/L (98-107); Glucose 95 mg/dL (74-106); Magnesium 2.2 mg/dL (1.6-2.6); Sodium 141 mmol/L (136-145)
[2024-11-16] MEDS: LEVOTHYROXINE SODIUM 25 MCG TAB PO SCH (06:45)
[2024-11-16] MEDS: CYANOCOBALAMIN (B-12) 1000 MCG/1 ML VIAL IM ONE (06:46)
[2024-11-16 07:01] LABS: Albumin 3.1 g/dL (3.2-4.8); Aspartate Aminotransferase 12 U/L (13-40); Bilirubin, Total 0.2 mg/dL (0.2-1.0); Blood Urea Nitrogen 68 mg/dL (9-23); Calcium 8.5 mg/dL (8.7-10.4); Potassium 3.1 mmol/L (3.5-5.1); Total Protein 5.2 g/dL (5.7-8.2)
[2024-11-16] MEDS: POTASSIUM EFFERVESENT TAB 25 MEQ PO ONE (09:33)
--- NOTE | 2024-11-16 10:51 | DVHPNRES ---
Progress Note Date Seen: November 16, 2024 Resident Creating Document: RYAN ESTRADA RESIDENT Has the PT tested + for MRSA If YES, has PT been informed?: No Medical Necessity Reason Pt with a Central, PICC or Fol: No Subjective Review of Systems Patient seen and examined at the bedside. Continuously monitor blood pressure. Overnight events reviewed, no new complaints reported. Patient reports: Feels better Objective vital signs Vital Sign Date Time Temp Pulse Resp B/P (MAP) Pulse Ox O2 Delivery O2 Flow Rate FiO2 11/16/24 09:37 88 20 148/84 11/16/24 09:05 98.2 96 98.2 11/15/24 20:00 Room Air* 0 21 Total Intake and Output 11/15/24 11/15/24 11/16/24 15:00 23:00 07:00 Intake Total 700 ml 1200 ml Output Total 1100 ml 1350 ml Balance -400 ml -150 ml medications Current Medications Medications Dose Ordered Sig/Reno Route Start Time Stop Time Status Last Admin Dose Admin Atorvastatin Calcium 40 mg HS PO 11/13/24 22:00 11/15/24 22:34 40 MG Clopidogrel Bisulfate 75 mg DAILY PO 11/14/24 10:00 Cancel Aspirin 81 mg DAILY PO 11/14/24 10:00 Cancel Ondansetron HCl 4 mg Q4HP PRN IV 11/13/24 20:00 11/14/24 08:09 4 MG Acetaminophen 650 mg Q6HP PRN PO 11/13/24 20:00 Nitroglycerin 0.4 mg Q5MINP PRN SL 11/13/24 20:00 Morphine Sulfate 2 mg Q30M PRN IV 11/13/24 20:00 11/15/24 21:00 2 MG Acetaminophen/ Hydrocodone Bitart 1 tab Q4HPRN PRN PO 11/13/24 22:00 11/16/24 06:53 1 TAB Hydralazine HCl 10 mg Q6HP PRN IV 11/14/24 07:15 11/14/24 11:46 10 MG Morphine Sulfate 2 mg Q4HPRN PRN IV 11/14/24 09:45 11/16/24 09:37 2 MG Ceftriaxone Sodium 50 ml @ 100 mls/hr DAILY@09 IV 11/15/24 09:00 11/16/24 09:35 100 MLS/HR Metronidazole 100 ml @ 100 mls/hr Q8HR IV 11/14/24 14:00 11/16/24 06:46 100 MLS/HR Ergocalciferol 50,000 unit Q7D PO 11/14/24 11:00 11/14/24 11:37 50,000 UNIT Pantoprazole Sodium 40 mg DAILY IV 11/15/24 10:00 11/16/24 09:35 40 MG Nifedipine 90 mg DAILY PO 11/15/24 10:00 11/16/24 09:36 90 MG Carvedilol 25 mg Q12HR PO 11/14/24 22:00 11/16/24 09:36 25 MG Lactated Ringer's 1,000 ml @ 75 mls/hr [id number] IV 11/14/24 19:45 11/15/24 22:35 75 MLS/HR Cyanocobalamin 500 mcg DAILY PO 11/17/24 10:00 Lorazepam 1 mg ONCE PRN IV 11/15/24 20:15 Levothyroxine Sodium 75 mcg QAM@0600 PO 11/16/24 06:00 11/16/24 06:45 75 MCG Examination Pt is lying on bed General Appearance: Alert, Oriented X3, Cooperative, In severe distress HEENT: Atraumatic, Mucous membranes moist/pink Respiratory: Clear to auscultation, Normal air movement, No added sounds Cardiovascular: Normal rate, Normal S1, Normal S2, No murmurs Abdominal: generalized abdominal tenderness, flank tenderness improved since yesterday Extremities: No edema, Normal pulses, No tenderness/swelling Skin: No Significant rash, except past surgical scars Neuro: Normal speech, sensation is intact but decreased strength globally Psych/Mental Status: Mental status NL, Mood NL Nurse was there as sharperone during examination laboratory and microbiology Laboratory Tests 11/16/24 05:21 Test 11/16/24 05:21 Range/Units Serum Glucose 95 74-106 mg/dL Microbiology Date/Time Source Procedure Growth Status 11/13/24 17:25 Urine - [place] Urine Culture - Final Complete Labs and/or images reviewed: Labs reviewed by me, Image(s) reviewed by me Problem List/Assessment/Plan Problem List/Assessment/Plan # HTN emergency with end-organ damage # HTN uncontrolled # NSTEMI 2 likely due to above # ALEXANDER on CKD likely ATN # R/o acute cva # Jerking in the arms and legs, likely myoclonus secondary to kidney failure # Chronic stroke with residual left-sided mild weakness - head CT, brain MRI showed no acute changes - labetalol and hydralazine as needed - Nifedipine 90 mg daily, Coreg 25 mg b.i.d. - elevated troponins - DC metoprolol - continuously monitor blood pressure - nephrology consult on board - renal ultrasound showed chronic changes - Lasix 20 mg due to pulmonary vascular congestion - 2D echo showed ejection fraction 55-60% - renal duplex scan unremarkable - Strict I&Os, continue Raines catheter placement # Secondary hyperparathyroidism # ? Secondary hypothyroidism - decreased T3, T4, T3 - elevated a.m. cortisol, ordered a CT head # Nicotine dependence-counseled regarding cessation for more than 17 minutes, nicotine patch # History of cervical cancer status post removal-does not follow oncologist # Ruled out PNA # Hypokalemia - Repleting - Monitor lab # Sepsis likely from below # Enteritis - Rocephin and Flagyl # Vit D deficiency # Vitamin B12 deficiency - Repleting # thrombocytopenia - monitor lab for now # History of stroke 04/2023 with residual left-sided weakness # History of small PFO 2022 # History of atrial septal aneurysm 2022 Protonix SCD Cardiac/Renal diet Goals of care discussed with the patient for more than 29 minutes: Full code status Case management discussed with Dr. Bazzi, patient and nurse Plan discussed with: Patient My Orders My Orders Orders - RYAN ESTRADA Procedure Category Date Status Time Adrenocorticotropic LAB 11/15/24 In Process Hormone 11:01 Myoglobin Urine LAB 11/15/24 Logged 13:38 Date of Service: November 16, 2024 Billing Provider: FAIZAN ADLER MD Common Visit Codes: [id number] INP/OBS CARE(HIGH) RYAN ESTRADA November 16, 2024 10:51 FAIZAN ADLER MD November 17, 2024 01:29
--- NOTE | 2024-11-16 14:52 | DVHPN2 ---
Progress Note Date Seen: November 16, 2024 Has the PT tested + for MRSA If YES, has PT been informed?: No Medical Necessity Reason Pt with a Central, PICC or Fol: Yes The following are medically ne: Raines Catheter Subjective Patient reports: No new complaints, Feels better (Reports lower extremity weakness is better and able to walk) Review of Systems: HEENT:Normal, CVS:Normal, RESPIRATORY:Normal, GI:Normal, :Normal, MSK:Normal, NEURO:Normal Objective vital signs Vital Sign Date Time Temp Pulse Resp B/P (MAP) Pulse Ox O2 Delivery O2 Flow Rate FiO2 11/16/24 12:36 97.6 80 18 155/81 (105) 98 97.6 11/15/24 20:00 Room Air* 0 21 Total Intake and Output 11/15/24 11/15/24 11/16/24 15:00 23:00 07:00 Intake Total 700 ml 1200 ml Output Total 1100 ml 1350 ml Balance -400 ml -150 ml medications Current Medications Medications Dose Ordered Sig/Reno Route Start Time Stop Time Status Last Admin Dose Admin Atorvastatin Calcium 40 mg HS PO 11/13/24 22:00 11/15/24 22:34 40 MG Clopidogrel Bisulfate 75 mg DAILY PO 11/14/24 10:00 Cancel Aspirin 81 mg DAILY PO 11/14/24 10:00 Cancel Ondansetron HCl 4 mg Q4HP PRN IV 11/13/24 20:00 11/14/24 08:09 4 MG Acetaminophen 650 mg Q6HP PRN PO 11/13/24 20:00 Nitroglycerin 0.4 mg Q5MINP PRN SL 11/13/24 20:00 Morphine Sulfate 2 mg Q30M PRN IV 11/13/24 20:00 11/15/24 21:00 2 MG Acetaminophen/ Hydrocodone Bitart 1 tab Q4HPRN PRN PO 11/13/24 22:00 11/16/24 06:53 1 TAB Hydralazine HCl 10 mg Q6HP PRN IV 11/14/24 07:15 11/14/24 11:46 10 MG Morphine Sulfate 2 mg Q4HPRN PRN IV 11/14/24 09:45 11/16/24 09:37 2 MG Ceftriaxone Sodium 50 ml @ 100 mls/hr DAILY@09 IV 11/15/24 09:00 11/16/24 09:35 100 MLS/HR Metronidazole 100 ml @ 100 mls/hr Q8HR IV 11/14/24 14:00 11/16/24 06:46 100 MLS/HR Ergocalciferol 50,000 unit Q7D PO 11/14/24 11:00 11/14/24 11:37 50,000 UNIT Pantoprazole Sodium 40 mg DAILY IV 11/15/24 10:00 11/16/24 09:35 40 MG Nifedipine 90 mg DAILY PO 11/15/24 10:00 11/16/24 09:36 90 MG Carvedilol 25 mg Q12HR PO 11/14/24 22:00 11/16/24 09:36 25 MG Lactated Ringer's 1,000 ml @ 75 mls/hr [id number] IV 11/14/24 19:45 11/15/24 22:35 75 MLS/HR Cyanocobalamin 500 mcg DAILY PO 11/17/24 10:00 Lorazepam 1 mg ONCE PRN IV 11/15/24 20:15 Levothyroxine Sodium 75 mcg QAM@0600 PO 11/16/24 06:00 11/16/24 06:45 75 MCG Examination: GENERAL:Normal, HEENT:Normal, NECK:Normal, LUNGS:Normal, CVS:Normal, ABDOMEN:Normal, MSK:Normal, SKIN:Normal, NEURO:Normal, :Normal laboratory and microbiology Laboratory Tests 11/16/24 05:21 Test 11/16/24 05:21 Range/Units Serum Glucose 95 74-106 mg/dL Microbiology Date/Time Source Procedure Growth Status 11/13/24 17:25 Urine - Raines Port Urine Culture - Final Complete Problem List/Assessment/Plan Problem List/Assessment/Plan ALEXANDER superimposed on CKD secondary to hypertensive emergency + urinary retention Acute onset weakness lower ext/ twitches Chronic kidney disease IIIb versus 4 Left temporal vision loss Hypertensive emergency Acute gastro Enteritis NSTEMI Hypokalemia History of stroke 04/2023 with residual left-sided weakness History of small PFO 2022 History of atrial septal aneurysm 2022 Vitamin B12 deficiency Vitamin-D deficiency Secondary hyperparathyroidism ? Secondary hypothyroidism Nicotine dependence History of cervical cancer status post removal-does not follow oncologist Recommendations Patient follows Dr. Hernandez Reports having kidney biopsy done earlier this year being followed by Dr. Madkour Renal function slightly better nonoliguric Continue aggressive replacement of thyroid hormone, B12, vitamin-D Patient reports walking better Do void trial before discharge--she still has Raines catheter Continue IV fluids for today CK is within normal limit Plan discussed with: Patient My Orders My Orders Orders - ATUL ORTIZ MD Procedure Category Date Status Time Levothyroxine Tablet PHA 11/16/24 In Process (Synthroid Tablet) 06:00 * Endocrinology CONS 11/15/24 Transmitted Consult 21:00 ATUL ORTIZ MD November 16, 2024 14:52
[2024-11-16 15:46] LABS: Protein, Urine 59.4 mg/dL (1-14)
[2024-11-16 15:48] LABS: Creatinine, Urine 53.11 mg/dL (30.0-125.0); Urine Protein/Creatinine Ratio 1.12
[2024-11-16 15:49] LABS: Opiate Scree,Urine Pos (NEGATIVE)
[2024-11-16 15:51] LABS: Amphetamine Screen, Urine Neg (NEGATIVE); Barbiturate Scree,Urine Neg (NEGATIVE); Benzodiazephine Screen, Urine Neg (NEGATIVE); Cannabinoid Screen, Urine Neg (NEGATIVE); Cocaine Screen, Urine Neg (NEGATIVE); Phencyclidine Screen, Urine Neg (NEGATIVE)
[2024-11-17] VITALS (7 sets, daily range): BP systolic 120–170; BP diastolic 74–100; PULSE 80–94; RESP 17–20; TEMP 97.8–98.2; O2SAT 97–99
[2024-11-17 07:02] LABS: Basophils # (auto) 0 10 ^3/uL (0-0.2); Basophils % (auto) 0.4 % (0.0-2.0); Eosinophils # (auto) 0.5 10 ^3/uL (0-0.8); Eosinophils % (auto) 4.8 % (0.0-7.0); Hematocrit 28.5 % (36.0-46.0); Hemoglobin 9.5 g/dL (12.2-16.2); Lymphocytes # (auto) 2.8 10 ^3/uL (0.4-5.4); Lymphocytes % (auto) 26.6 % (10.0-50.0); Mean Corpuscular Hemoglobin 31.5 pg (28.0-32.0); Mean Corpuscular Hgb Conc. 33.4 g/dL (32.0-36.0); Mean Corpuscular Volume 94.3 fL (80.0-100.0); Monocytes # (auto) 0.7 10 ^3/uL (0-1.3); Monocytes % (auto) 6.3 % (0.0-12.0); Neutrophils # (auto) 6.5 10 ^3/uL (1.6-8.6); Neutrophils % (auto) 61.9 % (37.0-80.0); Nucleated Red Blood Cells % 0.1 %; Platelet Count (auto) 321 10^3/uL (140-450); Red Blood Cells 3.02 10^6/uL (4.0-5.20); Red Cell Distribution Width 16.4 % (11.8-14.3); White Blood Cell 10.5 10^3/uL (4.4-10.8)
[2024-11-17 07:23] LABS: Alanine Aminotransferase 10 U/L (7-40); Alkaline Phosphatase 91 U/L (46-116); Anion Gap 11 (5-15); BUN/Creatinine Ratio 12.8 (10.0-20.0); Calcium 9.1 mg/dL (8.7-10.4); Carbon Dioxide 26 mmol/L (20-31); Glucose 99 mg/dL (74-106); Magnesium 2.2 mg/dL (1.6-2.6); Sodium 145 mmol/L (136-145)
[2024-11-17 07:26] LABS: Albumin 3.1 g/dL (3.2-4.8); Aspartate Aminotransferase 11 U/L (13-40); Bilirubin, Total 0.2 mg/dL (0.2-1.0); Blood Urea Nitrogen 60 mg/dL (9-23); Chloride 108 mmol/L (98-107); Potassium 3.3 mmol/L (3.5-5.1); Total Protein 5.1 g/dL (5.7-8.2)
[2024-11-17] MEDS: CYANOCOBALAMIN 500 MCG TAB PO SCH (09:21)
--- NOTE | 2024-11-17 13:11 | DVHPN2 ---
Progress Note Date Seen: November 17, 2024 Has the PT tested + for MRSA If YES, has PT been informed?: No Medical Necessity Reason Pt with a Central, PICC or Fol: Yes The following are medically ne: Thomas Catheter Subjective Patient reports: Feels better (Asking to go home) Review of Systems: HEENT:Normal, CVS:Normal, RESPIRATORY:Normal, GI:Normal, :Normal, MSK:Normal, NEURO:Normal Objective vital signs Vital Sign Date Time Temp Pulse Resp B/P (MAP) Pulse Ox O2 Delivery O2 Flow Rate FiO2 11/17/24 10:22 60 120/74 11/17/24 09:00 97.8 20 99 97.8 11/16/24 20:00 Room Air* 0 21 Total Intake and Output 11/16/24 11/16/24 11/17/24 15:00 23:00 07:00 Intake Total 400 ml 900 ml Balance 400 ml 900 ml medications Current Medications Medications Dose Ordered Sig/Reno Route Start Time Stop Time Status Last Admin Dose Admin Atorvastatin Calcium 40 mg HS PO 11/13/24 22:00 11/16/24 21:52 40 MG Clopidogrel Bisulfate 75 mg DAILY PO 11/14/24 10:00 Cancel Aspirin 81 mg DAILY PO 11/14/24 10:00 Cancel Ondansetron HCl 4 mg Q4HP PRN IV 11/13/24 20:00 11/14/24 08:09 4 MG Acetaminophen 650 mg Q6HP PRN PO 11/13/24 20:00 Nitroglycerin 0.4 mg Q5MINP PRN SL 11/13/24 20:00 Morphine Sulfate 2 mg Q30M PRN IV 11/13/24 20:00 Acetaminophen/ Hydrocodone Bitart 1 tab Q4HPRN PRN PO 11/13/24 22:00 11/16/24 20:37 1 TAB Hydralazine HCl 10 mg Q6HP PRN IV 11/14/24 07:15 11/14/24 11:46 10 MG Morphine Sulfate 2 mg Q4HPRN PRN IV 11/14/24 09:45 11/17/24 06:56 2 MG Ceftriaxone Sodium 50 ml @ 100 mls/hr DAILY@09 IV 11/15/24 09:00 11/17/24 09:20 100 MLS/HR Metronidazole 100 ml @ 100 mls/hr Q8HR IV 11/14/24 14:00 11/17/24 06:55 100 MLS/HR Ergocalciferol 50,000 unit Q7D PO 11/14/24 11:00 11/14/24 11:37 50,000 UNIT Pantoprazole Sodium 40 mg DAILY IV 11/15/24 10:00 11/17/24 09:22 40 MG Nifedipine 90 mg DAILY PO 11/15/24 10:00 11/17/24 09:21 90 MG Carvedilol 25 mg Q12HR PO 11/14/24 22:00 11/17/24 09:22 25 MG Lactated Ringer's 1,000 ml @ 75 mls/hr [id number] IV 11/14/24 19:45 11/15/24 22:35 75 MLS/HR Cyanocobalamin 500 mcg DAILY PO 11/17/24 10:00 11/17/24 09:21 500 MCG Lorazepam 1 mg ONCE PRN IV 11/15/24 20:15 Levothyroxine Sodium 75 mcg QAM@0600 PO 11/16/24 06:00 11/17/24 06:55 75 MCG laboratory and microbiology Laboratory Tests 11/17/24 06:34 Test 11/17/24 06:34 Range/Units Serum Glucose 99 74-106 mg/dL Microbiology Date/Time Source Procedure Growth Status 11/13/24 17:25 Urine - Thomas Port Urine Culture - Final Complete Problem List/Assessment/Plan Problem List/Assessment/Plan ALEXANDER superimposed on CKD secondary to hypertensive emergency + urinary retention Acute onset weakness lower ext/ twitches Chronic kidney disease IIIb versus 4 Left temporal vision loss Hypertensive emergency Acute gastro Enteritis NSTEMI Hypokalemia History of stroke 04/2023 with residual left-sided weakness History of small PFO 2022 History of atrial septal aneurysm 2022 Vitamin B12 deficiency Vitamin-D deficiency Secondary hyperparathyroidism ? Secondary hypothyroidism Nicotine dependence History of cervical cancer status post removal-does not follow oncologist Recommendations Patient follows Dr. Hernandez Reports having kidney biopsy done earlier this year being followed by Dr. Hernandez Renal function slightly better nonoliguric Continue aggressive replacement of thyroid hormone, B12, vitamin-D Patient reports walking better Do void trial after thomas removal before discharge--she still has Thomas catheter ivf CK is within normal limit Plan discussed with: Patient My Orders My Orders Orders - ATUL ORTIZ MD Procedure Category Date Status Time Communication Order ORDERS 11/17/24 Transmitted 11:59 Communication Order ORDERS 11/17/24 Transmitted 11:59 Communication Order ORDERS 11/17/24 Transmitted 11:59 ATUL ORTIZ MD November 17, 2024 13:11
[2024-11-17] MEDS: POTASSIUM EFFERVESENT TAB 25 MEQ GT ONE (13:41)
--- NOTE | 2024-11-17 16:57 | DVHPNRES ---
Progress Note Date Seen: November 17, 2024 Resident Creating Document: BOBBY CARTER RESIDENT Has the PT tested + for MRSA If YES, has PT been informed?: No Medical Necessity Reason Pt with a Central, PICC or Fol: Yes The following are medically ne: Thomas Catheter Medical Necessity Reason Mary Ervin is a 79 years old male with a PMH of CVA in 2022, uncontrolled HTN, CKD presented to the ED with the chief complaints of having severe headache since 2 days prior to admission. Patient reported she has been having headache and uncontrolled hypertension for long time but for last 2 days patient developed a she has been having twitching in the both legs and decreased strength associated with a severe headache and uncontrolled blood pressure which prompted her to visit ED. Patient reported despite of taking blood pressure medications her blood pressure is always in 150s. Patient reports she has been following with PCP and Nephrology on outpatient. Patient reported she diagnosed with high blood pressure almost 15 years ago. Patient is active smoker,. She smokes less than 1 pack per day, occasional marijuana abuse but denies alcohol and other drug abuse. Patient reported she is taking metoprolol 100 mg b.i.d., losartan b.i.d. ( patient did not remember 50 or 25mg) and Hydralazine b.i.d. unable to recall dose along with the Gilead for back pain. PN 11/17/2024 Patient seen and examined at the bedside. She is feeling well today at the time of my visit. She was seen earlier by the transport specialist and the catheter was removed. Patient however continues to run a high blood pressure her blood pressure today was running at 158/100. Overnight it was running within 132/77 to 134/80. Patient is currently on nifedipine, carvedilol, hydralazine, she had a renal ultrasound done which reveal normal pattern. Per the transport specialist a it is important to ensure the patient is able to pee after the Thomas's catheter has been removed before she is discharged. As of right now patient has not urinated yet. Just monitoring her closely. Keep patient overnight. Subjective Review of Systems Constitutional: Denies fever no chills no feeling of malaise HEENT: Denies headache, ear pain, ear discharges, conjunctivitis, nasal discharge throat pain Cardiovascular: Denies chest pain, palpitation, orthopnea, PND, or pedal edema Respiratory: Denies shortness of breath, cough cough, sputum production, hemoptysis, GI: Denies abdominal pain, nausea, vomiting, diarrhea, hematemesis, hematochezia, : Denies frequency, urgency, hematuria, No urination since the thomas's came out. monitoring closely Endocrine: Denies unintentional weight gain or weight loss, feeling of hot flashes, Jaime: Denies easy bruising, bleeding disorders, epistaxis Musculoskeletal: Denies joint pains, muscle aches Psych: No evidence of depression, yasmany, suicidal ideation Objective vital signs Vital Sign Date Time Temp Pulse Resp B/P (MAP) Pulse Ox O2 Delivery O2 Flow Rate FiO2 11/17/24 13:42 88 20 158/100 11/17/24 13:00 98.2 99 98.2 11/17/24 08:00 Room Air* 0 21 Total Intake and Output 11/16/24 11/16/24 11/17/24 15:00 23:00 07:00 Intake Total 400 ml 900 ml Balance 400 ml 900 ml medications Current Medications Medications Dose Ordered Sig/Reno Route Start Time Stop Time Status Last Admin Dose Admin Atorvastatin Calcium 40 mg HS PO 11/13/24 22:00 11/16/24 21:52 40 MG Clopidogrel Bisulfate 75 mg DAILY PO 11/14/24 10:00 Cancel Aspirin 81 mg DAILY PO 11/14/24 10:00 Cancel Ondansetron HCl 4 mg Q4HP PRN IV 11/13/24 20:00 11/14/24 08:09 4 MG Acetaminophen 650 mg Q6HP PRN PO 11/13/24 20:00 Nitroglycerin 0.4 mg Q5MINP PRN SL 11/13/24 20:00 Morphine Sulfate 2 mg Q30M PRN IV 11/13/24 20:00 Acetaminophen/ Hydrocodone Bitart 1 tab Q4HPRN PRN PO 11/13/24 22:00 11/16/24 20:37 1 TAB Hydralazine HCl 10 mg Q6HP PRN IV 11/14/24 07:15 11/14/24 11:46 10 MG Morphine Sulfate 2 mg Q4HPRN PRN IV 11/14/24 09:45 11/17/24 13:42 2 MG Ceftriaxone Sodium 50 ml @ 100 mls/hr DAILY@ IV 11/15/24 09:00 11/17/24 09:20 100 MLS/HR Metronidazole 100 ml @ 100 mls/hr Q8HR IV 11/14/24 14:00 11/17/24 13:42 100 MLS/HR Ergocalciferol 50,000 unit Q7D PO 11/14/24 11:00 11/14/24 11:37 50,000 UNIT Pantoprazole Sodium 40 mg DAILY IV 11/15/24 10:00 11/17/24 09:22 40 MG Nifedipine 90 mg DAILY PO 11/15/24 10:00 11/17/24 09:21 90 MG Carvedilol 25 mg Q12HR PO 11/14/24 22:00 11/17/24 09:22 25 MG Lactated Ringer's 1,000 ml @ 75 mls/hr [id number] IV 11/14/24 19:45 11/15/24 22:35 75 MLS/HR Cyanocobalamin 500 mcg DAILY PO 11/17/24 10:00 11/17/24 09:21 500 MCG Lorazepam 1 mg ONCE PRN IV 11/15/24 20:15 Levothyroxine Sodium 75 mcg QAM@0600 PO 11/16/24 06:00 11/17/24 06:55 75 MCG Examination General Appearance: Alert, Oriented X3, Cooperative, No acute distress HEENT: Atraumatic, PERRLA, EOMI, Mucous membrane moist/pink Respiratory: Clear to auscultation, Normal air movement Cardiovascular: Regular rate, Normal S1, Normal S2, No murmurs, no chest wall tenderness Abdominal: NO distention, no tenderness, bowel sounds present, no scars noted Extremities: No clubbing, No cyanosis, No edema, Normal pulses, No tenderness/swelling Skin: No rashes, No breakdown, No significant lesion Neuro: Normal gait, Normal speech, Strength at 5/5 X4 ext, Normal tone, Sensation intact, Cranial nerves 3-12 NL, Reflexes 2+ Psych/Mental Status: Mental status NL, Mood NL laboratory and microbiology Laboratory Tests 11/17/24 06:34 Test 11/17/24 06:34 Range/Units Serum Glucose 99 74-106 mg/dL Microbiology Date/Time Source Procedure Growth Status 11/13/24 17:25 Urine - Thomas Port Urine Culture - Final Complete Problem List/Assessment/Plan Problem List/Assessment/Plan Problem List/Assessment/Plan # HTN emergency with end-organ damage # HTN uncontrolled # NSTEMI 2 likely due to above # ALEXANDER on CKD likely ATN # Acute cva ruled out # Jerking in the arms and legs, likely myoclonus secondary to kidney failure # Chronic stroke with residual left-sided mild weakness - head CT, brain MRI showed no acute changes - labetalol and hydralazine as needed - Nifedipine 90 mg daily, Coreg 25 mg b.i.d. - elevated troponins - DC metoprolol - continuously monitor blood pressure - nephrology consult on board - renal ultrasound showed chronic changes - Lasix 20 mg due to pulmonary vascular congestion - 2D echo showed ejection fraction 55-60% - renal duplex scan unremarkable - Strict I&Os, continue Thomas catheter placement # Secondary hyperparathyroidism # ? Secondary hypothyroidism - decreased T3, T4, T3 - elevated a.m. cortisol, ordered a CT head # Nicotine dependence-counseled regarding cessation for more than 17 minutes, nicotine patch # History of cervical cancer status post removal-does not follow oncologist # Ruled out PNA # Hypokalemia - Repleting - Monitor lab # Sepsis likely from below # Enteritis - Rocephin and Flagyl # Vit D deficiency # Vitamin B12 deficiency - Repleting # thrombocytopenia - monitor lab for now # History of stroke 04/2023 with residual left-sided weakness # History of small PFO 2022 # History of atrial septal aneurysm 2022 Protonix SCD Cardiac/Renal diet DC IV fluids today 11/17/2024 Pending patient urinating before discharge Goals of care discussed with the patient for more than 16 minutes: Full code status Case discussed with Dr. Bazzi, patient and nurse Plan discussed with: Patient BOBBY CARTER RESIDENT November 17, 2024 16:57
--- NOTE | 2024-11-17 17:44 | DVHDSRES ---
Discharge Summary Date of Admission Resident Creating Document: BOBBY CARTER RESIDENT November 13, 2024 at 19:59 Date of Discharge: November 17, 2024 Admitting Diagnosis Headache Labs/Diagnostic Data: Signed PATIENT: MARY TERRELL ACCT: [id number] UNIT: [id number] : 1985 [facility] AGE / SEX: 39 / F ADM STATUS: ADM IN SERVICE 0800 ORDERING PHYSICIAN: SAM DURANT PROCEDURE(s): RENARTLMTD - RENAL ARTERY LMTD REASON: Ruled out renal artery stenosis ORDER NUMBER(s): [id number], ACCESSION NUMBER(s): [id number] ULTRASOUND RENAL CLINICAL INDICATION: Ruled out renal artery stenosis TECHNIQUE: Real-time sonographic, duplex, and color Doppler images of the kidneys were obtained. FINDINGS: No evidence for renal artery stenosis. Resistive indices within normal limits. IMPRESSION: Normal examination. [<reference, normal RI <.7>] ATED BY: LAY PATEL MD DICTATED DATE/TIME: 11/15/24 1013 S PATIENT: MARY TERRELL ACCT: [id number] UNIT: [id number] : 1985 LOC: [facility] AGE / SEX: 39 / F ADM STATUS: ADM IN SERVICE 1152 ORDERING PHYSICIAN: RYAN ESTRADA PROCEDURE(s): MBHL - BRAIN HEAD WO CONTRAST REASON: R/o CVA ORDER NUMBER(s): [id number], ACCESSION NUMBER(s): [id number] EXAMINATION: MRI BRAIN HEAD WO CONTRAST INDICATION: R/o CVA COMPARISON: CT head 11/13/2024 TECHNIQUE: Multiplanar, multisequence magnetic resonance imaging of the brain was performed without the use of intravenous contrast. FINDINGS: There is no restricted diffusion. The kirkpatrick and white matter signal is appropriate. There is no evidence of hemorrhage, mass, mass effect or midline shift. There is no hydrocephalus or extra-axial fluid collection. The visualized intracranial vasculature demonstrates appropriate flow-voids. The sagittal midline structures appear unremarkable. The craniocervical junction is within normal limits. The calvarium demonstrates normal marrow signal. There is a retention cyst in the left maxillary sinus. The paranasal sinuses and mastoid air cells are otherwise clear. IMPRESSION: 1. There is no acute intracranial process. HS:Y ATED BY: NIKUNJ HOLCOMB MD DICTATED DATE/TIME: 11/14/24 1419 PATIENT: MARY TERRELL ACCT: [id number] UNIT: [id number] : 1985 LOC: OVERFLOW ROOM / BED: [address] [place] [address] AGE / SEX: 39 / F ADM STATUS: ADM IN SERVICE 6 ORDERING PHYSICIAN: RYAN ESTRADA RESIDENT PROCEDURE(s): ABPL - CT AB PEL WO CON-NO ORAL OR IV REASON: pain ORDER NUMBER(s): [id number], ACCESSION NUMBER(s): [id number] CT CT AB PEL WO CON-NO ORAL OR IV INDICATION: pain EXAM DATE: 11/14/2024 09:36 AM COMPARISON: CT CT AB PEL WO CON-NO ORAL OR IV on DOS: 06/18/23, CT CHST AB PEL WO CON-NO IV/ORAL on DOS: 04/20/23 RADIATION DOSE: CTDIvol: mGy, DLP: mGy*cm PROCEDURE: Helical CT images were obtained of the abdomen and pelvis 1Sagittal and coronal reconstructions are provided. ORAL CONTRAST: None. ADDITIONAL IMAGES / REFORMATS: None All CT scans at this medical facility are performed using dose modulation techniques as appropriate to a performed exam including the following: Automated exposure control was utilized; adjustment of the MA and/or KV according to patient size; and use of iterative reconstruction technique. FINDINGS: LUNG BASE: Normal. LIVER: Normal. GALLBLADDER AND BILIARY TREE: Cholecystectomy clips are seen. No intra- or extrahepatic biliary ductal dilation. PANCREAS: Normal. SPLEEN: Normal. BOWEL: Prominent left sera abdomen small bowel wall thickening with adjacent inflammatory fat stranding and mesenteric edema could be seen with enteritis. Appendix not seen. ADRENALS: Normal. KIDNEYS AND URETER: Normal. BLADDER: Normal. REPRODUCTIVE ORGANS: Normal. LYMPH NODES:No lymphadenopathy. PERITONEUM: No ascites or free air. No other fluid collection. VESSELS: Scattered atherosclerotic calcifications are noted. RETROPERITONEUM: Normal. ABDOMINAL WALL: Normal. BONES: Scattered osseous degenerative changes are noted. IMPRESSION: Prominent left sera abdomen small bowel wall thickening with adjacent inflammatory fat stranding and mesenteric edema could be seen with enteritis. ATED BY: YAIR CLAY MD DICTATED DATE/TIME: 11/14/24 1007 PATIENT: MARY TERRELL ACCT: [id number] UNIT: [id number] : 1985 LOC: OVERFLOW ROOM / BED: [facility] / A AGE / SEX: 39 / F ADM STATUS: ADM IN SERVICE 58 ORDERING PHYSICIAN: MARTHA WEST PROCEDURE(s): KIDUS - KIDNEY REASON: renal failure ORDER NUMBER(s): [id number], ACCESSION NUMBER(s): [id number] BILATERAL RENAL ULTRASOUND CLINICAL HISTORY: renal failure COMPARISON: Abdomen and pelvis CT dated 06/18/2023. US KIDNEY on DOS: 04/21/23 TECHNIQUE: Real-time grayscale and color-flow imaging of the kidneys and bladder is performed. FINDINGS: Right kidney: Measures 10.8 cm in length. Increased parenchymal echogenicity. Normal cortical thickness. No hydronephrosis. Left kidney: Measures 11.2 cm in length. Increased parenchymal echogenicity. Normal cortical thickness. No hydronephrosis. Bladder: Appears to be collapsed around a Thomas catheter. IMPRESSION: Increased renal parenchymal echogenicity which can be seen with medical renal disease. No hydronephrosis. ATED BY: JONNY HOLCOMB MD DICTATED DATE/TIME: 11/13/242047 PATIENT: MARY TERRELL ACCT: [id number] UNIT: [id number] : 1985 LOC: ER ROOM / BED: / AGE / SEX: 39 / F ADM STATUS: REG ER SERVICE 1206 ORDERING PHYSICIAN: KEYANA WILEY MD PROCEDURE(s): HWOCT - HEAD WITHOUT CONTRAST REASON: tia ORDER NUMBER(s): [id number], ACCESSION NUMBER(s): [id number] EXAM: CT HEAD WITHOUT CONTRAST HISTORY: tia COMPARISON: CT HEAD WITHOUT CONTRAST on DOS: 06/18/23, CT HEAD WITHOUT CONTRAST on DOS: 04/20/23 TECHNIQUE: Axial images of the head were obtained and reformatted in coronal and sagittal planes. All CT scans at this medical facility are performed using dose modulation techniques as appropriate to a performed exam including the following: Automated exposure control was utilized; adjustment of the MA and/or KV according to patient size; and use of iterative reconstruction technique. CT Dose: CTDI volume is 55 mGy. Dose-length product is 982 mGy*cm FINDINGS: There is no evidence of acute intracranial hemorrhage, mass, mass effect midline shift. There is no hydrocephalus or extra-axial fluid collection. Kirkpatrick-white matter differentiation is maintained. There is a retention cyst in the left maxillary sinus. The remaining visualized paranasal sinuses and mastoid air cells are clear. The calvarium is intact. IMPRESSION: 1. No acute intracranial process. HS:Y ATED BY: NIKUNJ HOLCOMB MD DICTATED DATE/TIME: 11/13/24 1326 PATIENT: MARY TERRELL ACCT: [id number] UNIT: [id number] : 1985 LOC: ER ROOM / BED: / AGE / SEX: 39 / F ADM STATUS: REG ER SERVICE 1156 ORDERING PHYSICIAN: KEYANA WILEY MD PROCEDURE(s): CXRP - CHEST PORTABLE REASON: sob ORDER NUMBER(s): [id number], ACCESSION NUMBER(s): [id number] CHEST RADIOGRAPH Indication: sob Technique: Single frontal view of the chest was obtained Comparison: XY CHEST XRAY 1 VIEW on DOS: 06/18/23, XY CHEST PORTABLE on DOS: 04/19/23 FINDINGS: The cardiac silhouette is enlarged. The lungs demonstrate perihilar airspace opacities. The pulmonary vasculature is prominent. There is no pleural effusion.. There is no pneumothorax. IMPRESSION: 1. Cardiomegaly with pulmonary vascular congestion and bilateral perihilar airspace opacities. ATED BY: OSORIO OMALLEY MD DICTATED DATE/TIME: 11/13/24 1230 Laboratory Results Test 11/17/24 06:34 11/16/24 15:09 11/16/24 15:05 11/15/24 12:02 White Blood Count 10.5 10^3/uL (4.4-10.8) Red Blood Count 3.02 10^6/uL (4.0-5.20) Hemoglobin 9.5 g/dL (12.2-16.2) Hematocrit 28.5 % (36.0-46.0) Mean Corpuscular Volume 94.3 fL (80.0-100.0) Mean Corpuscular Hemoglobin 31.5 pg (28.0-32.0) Mean Corpuscular Hemoglobin Concent 33.4 g/dL (32.0-36.0) Red Cell Distribution Width 16.4 % (11.8-14.3) Platelet Count 321 10^3/uL (140-450) Mean Platelet Volume 7.9 fL (6.9-10.8) Neutrophils (%) (Auto) 61.9 % (37.0-80.0) Lymphocytes (%) (Auto) 26.6 % (10.0-50.0) Monocytes (%) (Auto) 6.3 % (0.0-12.0) Eosinophils (%) (Auto) 4.8 % (0.0-7.0) Basophils (%) (Auto) 0.4 % (0.0-2.0) Neutrophils # (Auto) 6.5 10 ^3/uL (1.6-8.6) Lymphocytes # (Auto) 2.8 10 ^3/uL (0.4-5.4) Monocytes # (Auto) 0.7 10 ^3/uL (0-1.3) Eosinophils # (Auto) 0.5 10 ^3/uL (0-0.8) Basophils # (Auto) 0 10 ^3/uL (0-0.2) Nucleated Red Blood Cells 0.1 % Sodium Level 145 mmol/L (136-145) Potassium Level 3.3 mmol/L (3.5-5.1) Chloride Level 108 mmol/L (98-107) Carbon Dioxide Level 26 mmol/L (20-31) Anion Gap 11 (5-15) Blood Urea Nitrogen 60 mg/dL (9-23) Creatinine 4.70 mg/dL (0.550-1.02) Glomerular Filtration Rate Calc 12 mL/min (>90) BUN/Creatinine Ratio 12.8 (10.0-20.0) Serum Glucose 99 mg/dL (74-106) Calcium Level 9.1 mg/dL (8.7-10.4) Magnesium Level 2.2 mg/dL (1.6-2.6) Total Bilirubin 0.2 mg/dL (0.2-1.0) Aspartate Amino Transferase (AST) 11 U/L (13-40) Alanine Aminotransferase (ALT) 10 U/L (7-40) Alkaline Phosphatase 91 U/L (46-116) Total Protein 5.1 g/dL (5.7-8.2) Albumin 3.1 g/dL (3.2-4.8) Stool Occult Blood Negative (Negative) Stool Occult Blood Sample #3 (Negative) Urine Creatinine 53.11 mg/dL (30.0-125.0) Urine Protein/Creatinine Ratio 1.12 Urine Sodium 25 mmol/L (40-220) Urine Potassium 9 mmol/L (12-62) Urine Total Protein 59.4 mg/dL (1-14) Urine Opiates Screen Pos (NEGATIVE) Urine Fentanyl Screen Neg (NEGATIVE) Urine Barbiturates Screen Neg (NEGATIVE) Urine Phencyclidine Screen Neg (NEGATIVE) Urine Amphetamines Screen Neg (NEGATIVE) Urine Benzodiazepines Screen Neg (NEGATIVE) Urine Cocaine Screen Neg (NEGATIVE) Urine Cannabinoids Screen Neg (NEGATIVE) Myoglobin 143 ng/mL (25-58) Adrenocorticotropic Hormone 7.4 pg/mL (7.2-63.3) Test 11/15/24 08:00 11/15/24 04:51 11/14/24 18:34 11/14/24 07:40 Cortisol AM Sample 33.06 ug/dL (5.27-22.45) Creatine Kinase 79 U/L (34-145) Influenza Type A Antigen Negative (Negative) Influenza Type B Antigen Negative (Negative) SARS-CoV-2 Antigen (Rapid) Negative (NEGATIVE) Test 11/14/24 07:35 11/14/24 05:48 11/13/24 21:26 11/13/24 20:01 Lactic Acid Level 1.9 mmol/L (0.4-2.0) Vitamin D 25-Hydroxy 8.6 ng/mL (30.0-100) Free Thyroxine (T4) Calculated 0.74 ng/dL (0.89-1.76) Total Triiodothyronine (TT3) 0.29 ng/mL (0.60-1.81) Hemoglobin A1c 4.6 % A1C (<5.7) Phosphorus Level 5.3 mg/dL (2.4-5.1) Free Thyroxine Index 0.9 (1.2-4.9) Thyroxine (T4) 3.2 ug/dL (4.5-12.0) Triiodothyronine (T3) Uptake 28 % (24-39) Parathyroid Hormone (Intact) 241.5 pg/mL (18.4-80.1) Plasma/Serum Blood Alcohol < 3.0 mg/dL (<10) Troponin I High Sensitivity 140 ng/L (</=34) Triglycerides Level 282 mg/dL (< 150) Cholesterol Level 178 mg/dL (< 200) LDL Cholesterol 85 mg/dL (< 100) HDL Cholesterol 36 mg/dL (40-59) Thyroid Stimulating Hormone (TSH) 0.38 uIU/mL (0.55-4.78) B-Type Natriuretic Peptide 113.24 pg/mL (0-100) Test 11/13/24 17:25 11/13/24 12:50 Urine Color Yellow (Yellow) Urine Clarity Clear (Clear) Urine pH 5.5 (5.0-9.0) Urine Specific [place] 1.017 (1.001-1.035) Urine Protein 2+ (Negative) Urine Ketones Negative (Negative) Urine Blood 2+ /uL (Negative) Urine Nitrite Negative (Negative) Urine Bilirubin Negative (Negative) Urine Urobilinogen Normal mg/dL (Negative) Urine Leukocyte Esterase Negative /uL (Negative) Urine RBC 9 /hpf (0 - 4) Urine Microscopic WBC 3 /HPF (0-5) Urine Squamous Epithelial Cells None seen /hpf (<5) Urine Bacteria None seen /hpf (None Seen) Urine Glucose Normal mg/dL (Normal) Platelet Estimate Decrea Large Platelets Few Other Laboratory Tests 11/17/24 06:34 Brief Hx & Hospital Course: Mary Terrell is a 39 years old male with a PMH of CVA in 2022, uncontrolled HTN, CKD presented to the ED with the chief complaints of having severe headache since 2 days prior to admission. Patient reported she has been having headache and uncontrolled hypertension for long time but for last 2 days patient developed a she has been having twitching in the both legs and decreased strength associated with a severe headache and uncontrolled blood pressure which prompted her to visit ED. Patient reported despite of taking blood pressure medications her blood pressure is always in 150s. Patient reports she has been following with PCP and Nephrology on outpatient. Patient reported she diagnosed with high blood pressure almost 15 years ago. Patient is active smoker,. She smokes less than 1 pack per day, occasional marijuana abuse but denies alcohol and other drug abuse. Patient reported she is taking metoprolol 100 mg b.i.d., losartan b.i.d. ( patient did not remember 50 or 25mg) and Hydralazine b.i.d. unable to recall dose along with the [place] for back pain. Brief hospital course Patient is a 39-year-old female presents for evaluation of headache. Patient reports having a headache for the past 10 days. She was recently seen at [facility] and left against medical advice. She states she has been having high blood pressure for years. She states being compliant with her medications she also reports a history of kidney disease. Patient reports that despite taking her medications as prescribed, her blood pressure is always in the 150s. The patient does follow up with the primary care physician and also with the medical detailist. Kidney biopsy has been done but she is not sure of the pathology report. But she will follow up with the medical detailist to go over the pathology report and the plan is going forward. While on this hospital, patient has been managed with different antihypertensive medication namely carvedilol, nifedipine, and hydralazine. Renal ultrasound was also done which showed normal pattern. Patient's current blood pressure measures today 158/100. however overnight it was running 132/77. Nephrology team has been following patient closely throughout this admission she is overall stable per her blood pressure measurement. Patient has been advised to follow up at the discharge Clinic in 7 days, follow up with the PCP and also with the medical detailist for further evaluation and further management of the chronic hypertension. Review of Systems Constitutional: Denies fever no chills no feeling of malaise HEENT: Denies headache, ear pain, ear discharges, conjunctivitis, nasal discharge throat pain Cardiovascular: Denies chest pain, palpitation, orthopnea, PND, or pedal edema Respiratory: Denies shortness of breath, cough cough, sputum production, hemoptysis, GI: Denies abdominal pain, nausea, vomiting, diarrhea, hematemesis, hematochezia, : Denies frequency, urgency, hematuria, No urination since the thomas's came out. monitoring closely Endocrine: Denies unintentional weight gain or weight loss, feeling of hot flashes, Jaime: Denies easy bruising, bleeding disorders, epistaxis Musculoskeletal: Denies joint pains, muscle aches Psych: No evidence of depression, yasmany, suicidal ideation General Appearance: Alert, Oriented X3, Cooperative, No acute distress HEENT: Atraumatic, PERRLA, EOMI, Mucous membrane moist/pink Respiratory: Clear to auscultation, Normal air movement Cardiovascular: Regular rate, Normal S1, Normal S2, No murmurs, no chest wall tenderness Abdominal: NO distention, no tenderness, bowel sounds present, no scars noted Extremities: No clubbing, No cyanosis, No edema, Normal pulses, No tenderness/swelling Skin: No rashes, No breakdown, No significant lesion Neuro: Normal gait, Normal speech, Strength at 5/5 X4 ext, Normal tone, Sensation intact, Cranial nerves 3-12 NL, Reflexes 2+ Psych/Mental Status: Mental status NL, Mood NL Diagnoses HTN emergency with end-organ damage # HTN uncontrolled # NSTEMI 2 likely due to above # ALEXANDER on CKD likely ATN # Acute cva ruled out # Jerking in the arms and legs, likely myoclonus secondary to kidney failure # Chronic stroke with residual left-sided mild weakness # Secondary hyperparathyroidism # ? Secondary hypothyroidism # Nicotine dependence-counseled regarding cessation for more than 17 minutes, nicotine patch # History of cervical cancer status post removal-does not follow oncologist # Ruled out PNA # Hypokalemia # Sepsis likely from below # Enteritis # Vit D deficiency # Vitamin B12 deficiency # thrombocytopenia # History of stroke 04/2023 with residual left-sided weakness # History of small PFO 2022 # History of atrial septal aneurysm 2022 Discharge plan Discharge home in stable condition Patient is to follow up with at the discharge Clinic in 7 days Follow up at the discharge with the PCP Follow up with the medical detailist as soon as possible Continue all current medications as instructed. Discharge plan discussed with Dr. Bazzi Consults/Reason for consult CKD stage III Condition at Discharge: Good Final Diagnosis/Problems List HTN emergency with end-organ damage # HTN uncontrolled # NSTEMI 2 likely due to above # ALEXANDER on CKD likely ATN # Acute cva ruled out # Jerking in the arms and legs, likely myoclonus secondary to kidney failure # Chronic stroke with residual left-sided mild weakness # Secondary hyperparathyroidism # ? Secondary hypothyroidism # Nicotine dependence-counseled regarding cessation for more than 17 minutes, nicotine patch # History of cervical cancer status post removal-does not follow oncologist # Ruled out PNA # Hypokalemia # Sepsis likely from below # Enteritis # Vit D deficiency # Vitamin B12 deficiency - Repleting # thrombocytopenia # History of stroke 04/2023 with residual left-sided weakness # History of small PFO 2022 # History of atrial septal aneurysm 2022 Discharge Disposition: Home Discharge Instruct/Medications Diet: Renal Activity: No Restrictions, As Tolerated Follow Up/Referral: 7 DAYs at the discharge clinic Medications: Nifedipine, carvedilol, hydralazine Discharge Statement: "Patient was advised to return to the ER or call 911 if any headaches, dizziness, shortness of breath, chest pain, abdominal pain, bleeding, fevers, or worsening of medical condition. Patient was counseled about treatment plan, medications, possible side effects, patientverbalized understanding. All questions were answered to the best of my ability. This discharge took greater then 30 minutes in planning, reviewing documentation, counseling the patient, and discussing with other team members." ASSESSMENT ASSESSMENT Assessment HTN emergency with end-organ damage # HTN uncontrolled # NSTEMI 2 likely due to above # ALEXANDER on CKD likely ATN # Acute cva ruled out # Jerking in the arms and legs, likely myoclonus secondary to kidney failure # Chronic stroke with residual left-sided mild weakness # Secondary hyperparathyroidism # ? Secondary hypothyroidism # Nicotine dependence-counseled regarding cessation for more than 17 minutes, nicotine patch # History of cervical cancer status post removal-does not follow oncologist # Ruled out PNA # Hypokalemia # Sepsis likely from below # Enteritis # Vit D deficiency # Vitamin B12 deficiency - Repleting # thrombocytopenia # History of stroke 04/2023 with residual left-sided weakness # History of small PFO 2022 # History of atrial septal aneurysm 2022 Date of Service: November 17, 2024 Billing Provider: FAIZAN ADLER MD Common Visit Codes: 80385-DQS/OBS DISCH DAY >30min BOBBY CARTER RESIDENT November 17, 2024 17:44 FAIZAN ADLER MD November 18, 2024 00:39
[2024-11-17] MEDS ORDERED: ZOFR4T PO (18:25)
[2024-11-17] MEDS ORDERED: ATOR20TA50 PO (18:25)
[2024-11-17] MEDS ORDERED: NIFE1TAB31 PO (18:25)
[2024-11-17] MEDS ORDERED: ACET-1882 PO (18:25)
[2024-11-17] MEDS ORDERED: CARV-216 PO (18:25)
[2024-11-17] MEDS ORDERED: CYAN500T3 PO (18:25)
[2024-11-17] MEDS ORDERED: PANT40TA2 PO (18:25)
[2024-11-17] MEDS ORDERED: LEVO112T4 PO (18:27)
[2024-11-18 11:01] LABS: Folate (Folic Acid) 6.83 ng/mL (>5.38)
[2024-11-19] MEDS ORDERED: LEVO-848 PO (13:47)
== END 2024-11-17 19:45 | disposition home or self-care (01) | DRG 720 ==
LOC: EDBD 11:49 → ER 11:54 → OVERFLOW 19:59 → TELE-CENTR 11-14 11:41
PROVIDERS: ADMIT Student in an Organized Health Care Education/Training Program; ATTEND Student in an Organized Health Care Education/Training Program
DX: A41.9 Sepsis, unspecified organism (principal); N17.0 Acute kidney failure with tubular necrosis; I21.A1 Myocardial infarction type 2; D69.6 Thrombocytopenia, unspecified; G25.3 Myoclonus; Q21.12 Patent foramen ovale; I13.10 Hypertensive heart and chronic kidney disease without heart failure, with stage 1 through stage 4 chronic kidney disease, or unspecified chronic kidney disease; A09 Infectious gastroenteritis and colitis, unspecified; I69.354 Hemiplegia and hemiparesis following cerebral infarction affecting left non-dominant side; Z20.822 Contact with and (suspected) exposure to COVID-19; I16.1 Hypertensive emergency; E87.6 Hypokalemia; E78.5 Hyperlipidemia, unspecified; E66.01 Morbid (severe) obesity due to excess calories; E55.9 Vitamin D deficiency, unspecified; E53.8 Deficiency of other specified B group vitamins; E21.1 Secondary hyperparathyroidism, not elsewhere classified; F17.210 Nicotine dependence, cigarettes, uncomplicated; F41.9 Anxiety disorder, unspecified; G89.4 Chronic pain syndrome; N39.0 Urinary tract infection, site not specified; D64.9 Anemia, unspecified; G43.909 Migraine, unspecified, not intractable, without status migrainosus; Z68.35 Body mass index [BMI] 35.0-35.9, adult; Z79.82 Long term (current) use of aspirin; Z79.899 Other long term (current) drug therapy; Z90.49 Acquired absence of other specified parts of digestive tract; Z82.49 Family history of ischemic heart disease and other diseases of the circulatory system; Z85.41 Personal history of malignant neoplasm of cervix uteri; N18.32 Chronic kidney disease, stage 3b
CPT/HCPCS: 36415; 70450; 70551; 71045; 74176; 76775; 80048; 80053; 80061; 80307; 80320; 81001; 82024; 82088; 82270; 82306; 82533; 82550; 82570; 82607; 82746; 83036; 83605; 83735; 83835; 83874; 83880; 83970; 84100; 84133; 84156; 84244; 84300; 84439; 84443; 84480; 84484; 85025; 87086; 87426; 87804; 93306; 93976; 96365; 96375; 97163; 99291; 99292; G0378; J2405; J2470; J3480; J3490

== ENCOUNTER 2024-12-26 10:41 | Inpatient (IN) | payer MEDICAID ==
[~2024-12-26] VITALS: Ht 165.1 cm; Wt 105.7 kg
[~2024-12-26 10:41] MED LIST changes: +ACET-1882 PO; +CARV-216 PO; +CYAN500T3 PO; +LEVO-848 PO; +NIFE1TAB31 PO; +PANT40TA2 PO; +ZOFR4T PO
--- NOTE | 2024-12-26 11:18 | ED.PDOC ---
History of Present Illness HPI Comments This is a 39 year old female presenting to the ED with chief complaint of needing dialysis. Patient reports that she had an appointment with her outside plant field engineer Dr. Diaz, advising her that she would need to start dialysis today and advised her to come to the ED for it to be done. Patient relays that she has been experiencing symptoms of shakiness, dizziness, and right sided flank pain. Patient denies any N/V/D, abdominal pain, dizziness, chest pain, SOB, fever, or chills. Chief Complaint: Abnormal LAB's Time Seen by MD: 11:09 Primary Care Provider: ELADIO Reviewed Notes: Nurses Notes, Medications, Allergies Allergies: Coded Allergies: NO KNOWN ALLERGIES (Unverified , 12/21/13) Home Meds Active Scripts Levothyroxine Sodium (SYNTHROID TABLET) 50 Mcg Tb, 1.5 TAB PO DAILY for 30 Days, #45 TAB 5 Refills Prov:BOBBY CARTER 11/19/24 Ondansetron Odt 4MG Tab (ZOFRAN PO) 4 Mg Tb, 4 MG PO BID for 30 Days, #60 TAB ODT TAB-DISSOLVE IN MOUTH, THEN SWALLOW Prov:BOBBY CARTER 11/17/24 Pantoprazole Sodium Sesquihydr (Protonix) 40 Mg Tab, 40 MG PO DAILY, #30 TAB Prov:BOBBY CARTER 11/17/24 Nifedipine (Nifedipine Er) 30 Mg Tab, 90 MG PO DAILY for 30 Days, #90 TAB Prov:BOBBY CARTER 11/17/24 Cyanocobalamin (Gnp Vitamin B12) 500 Mcg Tab, 500 MCG PO DAILY for 30 Days, #30 TAB Prov:BOBBY CARTER 11/17/24 Carvedilol (COREG) 12.5 Mg Tab, 25 MG PO Q12HR for 30 Days, #120 TAB Prov:BOBBY CARTER 11/17/24 Atorvastatin Calcium (ATORVASTATIN CALCIUM) 20 Mg Tab, 40 MG PO HS for 30 Days, #60 TAB Prov:BOBBY CARTER 11/17/24 Acetaminophen (Acetaminophen) 325 Mg Tab, 650 MG PO Q6HP PRN for 30 Days, #240 TAB Prov:BOBBY CARTER 11/17/24 Cyclobenzaprine Hcl (Cyclobenzaprine Hcl) 5 Mg Tab, 5 MG PO BID for 3 Days, #6 TAB Prov:HANY HERNANDEZ MD 06/18/23 Amlodipine Besylate (Amlodipine Besylate) 10 Mg Tab, 1 TAB PO DAILY, #30 TAB 5 Refills Prov:MARVEL BELL MD 04/25/23 Clopidogrel Bisulfate (CLOPIDOGREL) 75 Mg Tab, 75 MG PO DAILY for 30 Days, #30 TAB Prov:MARVEL BELL MD 04/25/23 Atorvastatin Calcium (ATORVASTATIN CALCIUM) 20 Mg Tab, 40 MG PO HS for 30 Days, #60 TAB Prov:MARVEL BELL MD 04/25/23 Aspirin (Aspirin Low Dose) 81 Mg Tab, 81 MG PO DAILY for 30 Days, #30 TAB Prov:MARVEL BELL MD 04/25/23 Reported Medications Gabapentin (Gabapentin) 300 Mg Cap, 300 MG PO TID for 30 Days, MG 04/21/23 Hydrocodone-Acetaminophen (Hydrocodone Bitartrate/AC 10-325 mg) 1 Tab Tab, 1 TAB PO BID, TAB 04/21/23 Atorvastatin Calcium (ATORVASTATIN CALCIUM) 20 Mg Tab, 1 TAB PO DAILY, #30 TAB 5 Refills 04/21/23 Metoprolol Tartrate (Metoprolol Tartrate) 100 Mg Tab, 100 MG PO BID for 30 Days, MG 04/21/23 Losartan Potassium (Losartan Potassium) 100 Mg Tab, 100 MG PO DAILY for 30 Days, MG 04/21/23 Torsemide Injection (Torsemide) 20 Mg Tab, 20 MG PO DAILY, TAB 04/21/23 Information Source: Patient Mode of Arrival: Ambulatory Severity: Moderate Timing: Days Duration: Since onset Prehospital treatment: None Past Medical History PAST MEDICAL HISTORY: Anxiety, CKF, CVA, High Lipids, HTN, Thyroid Surgical History: Cholecystectomy, Tonsillectomy Surgical History (Other): Bilateral arm surgery, carpal tunnel surgery, endometriosis surgery, septal deviation surgery INSTRUMENT PROCESSING TECH History: Ovarian Cysts Family History Family History: No family hx of Cancer, No family hx of Heart kenneth, No family hx of HTN, No family hx of Stroke, Family hx of Kidney kenneth Social History Smoker: Cigarettes, Less Than 1 Pack/Day Alcohol: Denies ETOH Use Drugs: Denies Drug Use Lives In: Home Constitutional: denies: chills, diaphoresis, fatigue, fever, malaise, sweats, weakness, others EENTM: denies: blurred vision, double vision, ear bleeding, ear discharge, ear drainage, ear pain, ear ringing, eye pain, eye redness, hearing loss, mouth pain, mouth swelling, nasal discharge, nose bleeding, nose congestion, nose pain, photophobia, tearing, throat pain, throat swelling, voice changes, others Respiratory: denies: cough, hemoptysis, orthopnea, SOB at rest, shortness of breath, SOB with excertion, stridor, wheezing, others Cardiovascular: denies: chest pain, dizzy spells, diaphoresis, Dyspnea on exertion, edema, irregular heart beat, left arm pain, lightheadedness, palpitations, PND, syncope, others Gastrointestinal: denies: abdomen distended, abdominal pain, blood streaked bowels, constipated, diarrhea, dysphagia, difficulty swallowing, hematemesis, melena, nausea, poor appetite, poor fluid intake, rectal bleeding, rectal pain, vomiting, others Genitourinary: reports: flank pain; denies: abnormal vagina bleeding, burning, dyspareunia, dysuria, frequency, hematuria, incontinence, pain, , vagina discharge, urgency, others Neurological: reports: dizziness, tremors; denies: fainting, headache, left sided numbness, left sided weakness, numbness, paresthesia, pre-existing deficit, right sided numbness, right sided weakness, seizure, speech problems, tingling, weakness, others Musculoskeletal: denies: back pain, gout, joint pain, joint swelling, muscle pain, muscle stiffness, neck pain, others Integumetry: denies: bruises, change in color, change in hair/nails, dryness, laceration, lesions, lumps, rash, wounds, others Allergic/Immunocompromised: denies: Difficulty Healing, Frequent Infections, Hives, Itching, others Hematologic/Lymphatic: denies: anemia, blood clots, easy bleeding, easy bruising, swollen glands, others Endocrine: denies: excessive hunger, excessive sweating, excessive thirst, excessive urination, flushing, intolerance to cold, intolerance to heat, unexplained weight gain, unexplained weight loss, others Psychiatric: denies: anxiety, bipolar disorder, depression, hopeless, panic disorder, schizophrenia, sleepless, suicidal, others All Other Systems: Reviewed and Negative Physical Exam General Appearance: Moderate Distress, Obese HEENT: Normal ENT Inspection, Pharynx Normal, TMs Normal Neck: Full Range of Motion, Non-Tender, Normal, Normal Inspection Respiratory: Chest Non-Tender, Lungs Clear, No Accessory Muscle Use, No Respiratory Distress, Normal Breath Sounds Cardiovascular: No Edema, No JVD, No Murmur, No Gallop, Normal Peripheral Pulses, Regular Rate/Rhythm Breast Exam: Deferred Gastrointestinal: No Organomegaly, Non Tender, No Pulsatile Mass, Normal Bowel Sounds, Soft Genitalia: Deferred Pelvic: Deferred Rectal: Deferred Extremities: No calf tenderness, Normal capillary refill, Normal inspection, Normal range of motion, Non-tender, No pedal edema Musculoskeletal : Apperance: Normal Neurologic: Alert, turn operator II-XII nml as Tested, No Motor Deficits, Normal Affect, Normal Mood, No Sensory Deficits Cerebellar Function: Normal Reflexes: Normal Skin: Dry, Normal Color, Warm Lymphatic: No Adenopathy Was a procedure done? Was a procedure done?: No Differential Dx Considerations may include: Generalized weakness, electrolyte imbalance, dehydration X-Ray, Labs, Meds, VS Vital Signs Date Time Temp Pulse Resp B/P (MAP) Pulse Ox O2 Delivery O2 Flow Rate FiO2 12/26/24 11:53 165/108 12/26/24 11:41 97.6 85 16 165/108 (127) 96 97.6 12/26/24 11:41 85 16 96 Room Air 12/26/24 11:07 82 12/26/24 11:00 97.9 89 16 149/113 (125) 98 97.9 161/119 (133) Lab Test 12/26/24 11:11 12/26/24 11:05 Range/Units White Blood Count 11.6 H 4.4-10.8 10^3/uL Red Blood Count 4.20 4.0-5.20 10^6/uL Hemoglobin 13.0 12.2-16.2 g/dL Hematocrit 38.6 36.0-46.0 % Mean Corpuscular Volume 92.0 80.0-100.0 fL Mean Corpuscular Hemoglobin 30.9 28.0-32.0 pg Mean Corpuscular Hemoglobin Concent 33.6 32.0-36.0 g/dL Red Cell Distribution Width 15.0 H 11.8-14.3 % Platelet Count 500 H 140-450 10^3/uL Mean Platelet Volume 6.9 6.9-10.8 fL Neutrophils (%) (Auto) 67.4 37.0-80.0 % Lymphocytes (%) (Auto) 24.4 10.0-50.0 % Monocytes (%) (Auto) 5.2 0.0-12.0 % Eosinophils (%) (Auto) 2.5 0.0-7.0 % Basophils (%) (Auto) 0.5 0.0-2.0 % Neutrophils # (Auto) 7.8 1.6-8.6 10 ^3/uL Lymphocytes # (Auto) 2.8 0.4-5.4 10 ^3/uL Monocytes # (Auto) 0.6 0-1.3 10 ^3/uL Eosinophils # (Auto) 0.3 0-0.8 10 ^3/uL Basophils # (Auto) 0.1 0-0.2 10 ^3/uL Nucleated Red Blood Cells 0.0 % Sodium Level 142 136-145 mmol/L Potassium Level 4.2 3.5-5.1 mmol/L Chloride Level 107 98-107 mmol/L Carbon Dioxide Level 25 20-31 mmol/L Anion Gap 10 5-15 Blood Urea Nitrogen 49 H 9-23 mg/dL Creatinine 5.17 H 0.550-1.02 mg/dL Glomerular Filtration Rate Calc 10 >90 mL/min BUN/Creatinine Ratio 9.5 L 10.0-20.0 Serum Glucose 108 H 74-106 mg/dL Calcium Level 10.9 H 8.7-10.4 mg/dL POC Glucose 121 H 70-106 mg/dl Current Medications Medications (Trade) Dose Ordered Sig/Reno Route Start Time Stop Time Status Last Admin Hydralazine HCl (Apresoline Injection) 20 mg ONCE ONCE IV 12/26/24 11:15 12/26/24 11:16 DC 12/26/24 11:53 IV Hep-Lock was established The patient was given hydralazine 20 mg IV push for the elevated blood pressure Pt CBC shows an elevated white blood cell count 11.6 The chemistry panel shows a BUN of 49 the creatinine of 5.17 The patient's diagnosis acute renal failure The outside plant field engineer did go ahead and consult and stated that he would like the patient to receive a time-out Denzel catheter for dialysis We have discussed this with the patient and they are in agreement with the management The patient is being admitted this time Time of 1ST Reevaluation: 13:44 Reevaluation 1ST: Unchanged Patient Education/Counseling: Diagnosis, Treatment, Prognosis Family Education/Counseling: No Family Present SEPSIS Sepsis Screen Physician Orders Urinalysis (12/26/24 11:03) Heplock Iv (12/26/24 11:03) Environmental Studies Department Chair (12/26/24 11:03) Blood Pressure (12/26/24 11:03) Pulse Oximetry (12/26/24 11:03) Electrocardigram (12/26/24 11:03) * Radiologist Consult (12/26/24 12:31) Admit (12/26/24 13:01) Code Status (12/26/24 13:) Vital Signs .PER UNIT PROTOCOL (12/26/24 13:) Environmental Studies Department Chair (12/26/24 13:01) Cardiac Diet-2gna,Lofat,Lochol (12/26/24 Lunch) Atorvastatin (Lipitor) (12/26/24 22:00) Acetaminophen Tablet (Tylenol Tablet) (12/26/24 13:15) Complete Blood Count (12/27/24 04:00) Basic Metabolic Panel (12/27/24 04:00) Magnesium (12/27/24 04:00) Lipid Panel (12/27/24 04:00) Echo 2d Mode Cardiac Dop (12/26/24 13:01) Nitroglycerin Sublingual (Ntrostat Subli (12/26/24 13:15) Ondansetron Hcl (Zofran) (12/26/24 13:15) Electrocardigram (12/26/24 13:01) Troponin-I Hs (12/27/24 04:00) Cardiac Rehabilitation - Outpa (12/26/24 ) Nitroglycerin Sublingual (Ntrostat Subli (12/26/24 13:15) Morphine Sulfate Injection (12/26/24 13:15) Stat Ekg For Chest Pain (12/26/24 13:01) Notify Of Changes From Base (12/26/24 13:01) Dietetic Tech For 24 Hours (12/26/24 13:01) Emergency Dysrhythmia Protocol (12/26/24 13:01) Rhythm Strips Once Every Shift (12/26/24 13:01) Oxygen By Nasal Cannula (12/26/24 13:01) Thyroid Stimulating Hormone (12/26/24 13:01) Hemoglobin A1c (12/26/24 13:01) Vital Signs Date Time Temp Pulse Resp B/P (MAP) Pulse Ox O2 Delivery O2 Flow Rate FiO2 12/26/24 11:53 165/108 12/26/24 11:41 97.6 85 16 165/108 (127) 96 97.6 12/26/24 11:41 85 16 96 Room Air 12/26/24 11:07 82 12/26/24 11:00 97.9 89 16 149/113 (125) 98 97.9 161/119 (133) Laboratory Tests Test 12/26/24 11:11 White Blood Count 11.6 10^3/uL (4.4-10.8) H Medications Medications Dose Ordered Sig/Reno Route Start Time Stop Time Status Last Admin Dose Admin Hydralazine HCl 20 mg ONCE ONCE IV 12/26/24 11:15 12/26/24 11:16 DC 12/26/24 11:53 Departure 1 Departure Time of Disposition: 13:43 Impression: Primary Impression: Acute renal failure Qualified Codes: N17.1 - Acute kidney failure with acute cortical necrosis Disposition: ADMITTED INPATIENT Admit to: Tele Condition: Fair Critical Care Note Critical Care Time?: Yes (35 min-critical care time only) Stability Stability form required: Yes Unstable for transfer: Telemetry monitoring (Telemetry monitoring required), ED Physician Assesment (Clinical assesment) Heart Score Heart Score: Heart Score Response (Comments) Value History N/A 0 EKG N/A 0 Age N/A 0 Risk Factors N/A 0 Troponin N/A 0 Total 0 I personally scribed for LORNA BUCKLEY MD ([email or web address]) on 12/26/24 at 11:18. Electronically submitted by Lawrence Gandhi ([email or web address]). LORNA BUCKLEY MD Dec 26, 2024 11:18
[2024-12-26 11:33] LABS: Basophils # (auto) 0.1 10 ^3/uL (0-0.2); Eosinophils # (auto) 0.3 10 ^3/uL (0-0.8); Mean Corpuscular Hemoglobin 30.9 pg (28.0-32.0)
[2024-12-26 11:35] LABS: Basophils % (auto) 0.5 % (0.0-2.0); Eosinophils % (auto) 2.5 % (0.0-7.0); Hematocrit 38.6 % (36.0-46.0); Lymphocytes # (auto) 2.8 10 ^3/uL (0.4-5.4); Lymphocytes % (auto) 24.4 % (10.0-50.0); Mean Corpuscular Hgb Conc. 33.6 g/dL (32.0-36.0); Monocytes # (auto) 0.6 10 ^3/uL (0-1.3); Monocytes % (auto) 5.2 % (0.0-12.0); Neutrophils # (auto) 7.8 10 ^3/uL (1.6-8.6); Neutrophils % (auto) 67.4 % (37.0-80.0); Platelet Count (auto) 500 10^3/uL (140-450); White Blood Cell 11.6 10^3/uL (4.4-10.8)
[2024-12-26 11:37] LABS: Potassium 4.2 mmol/L (3.5-5.1); Sodium 142 mmol/L (136-145)
[2024-12-26 11:40] LABS: Calcium 10.9 mg/dL (8.7-10.4); Chloride 107 mmol/L (98-107)
[2024-12-26 11:43] LABS: BUN/Creatinine Ratio 9.5 (10.0-20.0)
[2024-12-26 11:44] LABS: Blood Urea Nitrogen 49 mg/dL (9-23); Glucose 108 mg/dL (74-106)
[2024-12-26] MEDS: hydrALAZINE HCL 20 MG/ML VL IV ONE ×2 (11:53→20:57)
[2024-12-26 12:08] LABS: Anion Gap 10 (5-15); Carbon Dioxide 25 mmol/L (20-31)
--- NOTE | 2024-12-26 13:02 | DVHHP2 ---
History of Present Illness Reason for Visit: needing HD History of Present Illness 39-year-old female past medical history anxiety CK D CVA hyperlipidemia hypertension hypothyroidism surgical history septal deviation surgery endometriosis gallbladder surgery bilateral arm surgery carpal tunnel surgery chief complaint patient states she went to see Dr. Hernandez today and he recommended that she comes in to get dialysis started. Since patient is having symptoms she states she feels some shortness of the breath but no chest pain and some back pain. Patient states she has been taking her meds as prescribed but she denies any headache dizziness no abdominal pain no vomiting. When evaluating patient's labs and imaging in the ED looks like hydralazine was given white count was 11.6 creatinine is 5.17 and 69 potassium was normal glucose was 108 calcium was 10.9 otherwise unremarkable. Renal was already called by the ER team. With these findings we will admit for pending dialysis in placement of PermCath for procedure to be completed Past Medical History see hpi above Past Surgical History see hpi above Family History Reviewed, non-contributory to the management of this case. Past Social History The patient lives at home, denies smoking, alcohol or illicit drugs abuse. Review of Systems Constitutional: No: Fever, Chills, Sweats, Weakness, Malaise, Other Eyes: No: Pain, Vision change, Conjunctivae inflammation, Eyelid inflammation, Other, Redness ENT: No: Ear pain, Ear discharge, Nose pain, Nose discharge, Nose congestion, Mouth pain, Mouth swelling, Throat pain, Throat swelling, Other Respiratory: No: Cough, Dry, Shortness of breath, SOB with excertion, Wheezing, Hemoptysis, Pleuritic Pain, Sputum, Wheezing, Other Cardiovascular: No: Chest Pain, Palpitations, Orthopnea, Paroxysmal Noc. Dyspnea, Edema, Lt Headedness, Other Gastrointestinal: No: Nausea, Vomiting, Abdominal Pain, Diarrhea, Constipation, Melena, Hematochezia, Other Genitourinary: No Dysuria, No Frequency, No Incontinence, No Hematuria, No Retention, No Other Musculoskeletal: No: other, neck pain, shoulder pain, arm pain, back pain, hand pain, leg pain, foot pain Skin: No: Rash, Lesions, Jaundice, Bruising, Other Neurological: No: Weakness, Numbness, Incoordination, Change in speech, Confusion, Seizures, Other Allergies: Coded Allergies: NO KNOWN ALLERGIES (Unverified , 12/21/13) Exam Vital Signs Vital Signs Date Time Temp Pulse Resp B/P (MAP) Pulse Ox O2 Delivery O2 Flow Rate FiO2 12/26/24 11:53 165/108 12/26/24 11:41 97.6 85 16 96 97.6 12/26/24 11:41 Room Air General Appearance: Alert, Oriented X3, Cooperative, No acute distress HEENT: Atraumatic, PERRLA, EOMI, Mucous membr. moist/pink Respiratory: Clear to auscultation, Normal air movement Cardiovascular: Regular rate, Normal S1, Normal S2, No murmurs Abdominal: Normal bowel sounds, Soft, No tenderness, No hepatospenomegaly, No masses Extremities: No clubbing, No cyanosis, No edema, Normal pulses, No tenderness/swelling Skin: No rashes, No breakdown, No significant lesion Neuro: Normal gait, Normal speech, Strength at 5/5 X4 ext, Normal tone, Sensation intact, Cranial nerves 3-12 NL Psych/Mental Status: Mental status NL, Mood NL Labs/Xrays I reviewed labs, imaging CT scan abdomen pelvis, EKG and all diagnostic studies on this patient from ED records and the medical chart Labs Test 12/26/24 11:11 12/26/24 11:05 Range/Units White Blood Count 11.6 H 4.4-10.8 10^3/uL Red Blood Count 4.20 4.0-5.20 10^6/uL Hemoglobin 13.0 12.2-16.2 g/dL Hematocrit 38.6 36.0-46.0 % Mean Corpuscular Volume 92.0 80.0-100.0 fL Mean Corpuscular Hemoglobin 30.9 28.0-32.0 pg Mean Corpuscular Hemoglobin Concent 33.6 32.0-36.0 g/dL Red Cell Distribution Width 15.0 H 11.8-14.3 % Platelet Count 500 H 140-450 10^3/uL Mean Platelet Volume 6.9 6.9-10.8 fL Neutrophils (%) (Auto) 67.4 37.0-80.0 % Lymphocytes (%) (Auto) 24.4 10.0-50.0 % Monocytes (%) (Auto) 5.2 0.0-12.0 % Eosinophils (%) (Auto) 2.5 0.0-7.0 % Basophils (%) (Auto) 0.5 0.0-2.0 % Neutrophils # (Auto) 7.8 1.6-8.6 10 ^3/uL Lymphocytes # (Auto) 2.8 0.4-5.4 10 ^3/uL Monocytes # (Auto) 0.6 0-1.3 10 ^3/uL Eosinophils # (Auto) 0.3 0-0.8 10 ^3/uL Basophils # (Auto) 0.1 0-0.2 10 ^3/uL Nucleated Red Blood Cells 0.0 % Sodium Level 142 136-145 mmol/L Potassium Level 4.2 3.5-5.1 mmol/L Chloride Level 107 98-107 mmol/L Carbon Dioxide Level 25 20-31 mmol/L Anion Gap 10 5-15 Blood Urea Nitrogen 49 H 9-23 mg/dL Creatinine 5.17 H 0.550-1.02 mg/dL Glomerular Filtration Rate Calc 10 >90 mL/min BUN/Creatinine Ratio 9.5 L 10.0-20.0 Serum Glucose 108 H 74-106 mg/dL Calcium Level 10.9 H 8.7-10.4 mg/dL POC Glucose 121 H 70-106 mg/dl Assessment/Plan Assessment/Plan acute esrd stage [address] Hernandez consulted sent pt here for HD pending placement permacath for HD pending renal recs will follow current crea 5.17 but normal potassium folllow up labs daily including mag and phos acute leukocytosis will order ua ordered cxr follow up results tobacco dependence i counseled the patient for 6 min about smoking suggestions pt accepted nicotine patch and tobacco education smoking code [id number] chronic problems anxiety ckf cva hld htn hypothyroidism fen/ppx diet hl scd no dvt ppx since pt ambulatory plan admit to tele cards consult Plan discussed with: Patient Date of Service: Dec 26, 2024 Billing Provider: LANEY ALLEN DNP Common Visit Codes: [id number] INP/OBS CARE (HIGH) LANEY ALLEN DNP Dec 26, 2024 13:02
[2024-12-26] MEDS ORDERED: ACETAMINOPHEN 325 MG TAB PO PRN (13:15)
[2024-12-26] MEDS ORDERED: MORPHINE SULFATE INJ 2 MG/ml SYRG IV PRN (13:15)
[2024-12-26] MEDS ORDERED: NITROGLYCERIN 0.4 MG SL TAB SL PRN ×3 (13:15→15:15)
--- NOTE | 2024-12-26 14:00 | DVHINCON2 ---
Date of service: Dec 26, 2024 Referring Physician Shannan Omalley, nurse practitioner Reason for Consultation Chronic Kidney Disease stage 5 to start hemodialysis History of Present Illness Patient is a 39-year-old female with past medical history significant for Anxiety, CKD stage 5, CVA, High Lipids, uncontrolled HTN, and hypothyroidism is admitted from my office for hypertensive urgency and to initiate hemodialysis Past Medical History Anxiety, CKD stage 5, CVA, High Lipids, uncontrolled HTN, and hypothyroidism Past Surgical History Surgical History: Cholecystectomy, Tonsillectomy Bilateral arm surgery, carpal tunnel surgery, endometriosis surgery, septal deviation surgery Kidney biopsy Allergies: Coded Allergies: NO KNOWN ALLERGIES (Unverified , 12/21/13) Home Meds Active Scripts Levothyroxine Sodium (SYNTHROID TABLET) 50 Mcg Tb, 1.5 TAB PO DAILY for 30 Days, #45 TAB 5 Refills Prov:BOBBY CARTER 11/19/24 Ondansetron Odt 4MG Tab (ZOFRAN PO) 4 Mg Tb, 4 MG PO BID for 30 Days, #60 TAB ODT TAB-DISSOLVE IN MOUTH, THEN SWALLOW Prov:BOBBY CARTER 11/17/24 Pantoprazole Sodium Sesquihydr (Protonix) 40 Mg Tab, 40 MG PO DAILY, #30 TAB Prov:BOBBY CARTER 11/17/24 Nifedipine (Nifedipine Er) 30 Mg Tab, 90 MG PO DAILY for 30 Days, #90 TAB Prov:BOBBY CARTER 11/17/24 Cyanocobalamin (Gnp Vitamin B12) 500 Mcg Tab, 500 MCG PO DAILY for 30 Days, #30 TAB Prov:BOBBY CARTER 11/17/24 Carvedilol (COREG) 12.5 Mg Tab, 25 MG PO Q12HR for 30 Days, #120 TAB Prov:BOBBY CARTER 11/17/24 Atorvastatin Calcium (ATORVASTATIN CALCIUM) 20 Mg Tab, 40 MG PO HS for 30 Days, #60 TAB Prov:BOBBY CARTER 11/17/24 Acetaminophen (Acetaminophen) 325 Mg Tab, 650 MG PO Q6HP PRN for 30 Days, #240 TAB Prov:BOBBY CARTER 11/17/24 Cyclobenzaprine Hcl (Cyclobenzaprine Hcl) 5 Mg Tab, 5 MG PO BID for 3 Days, #6 TAB Prov:HANY HERNANDEZ MD 06/18/23 Amlodipine Besylate (Amlodipine Besylate) 10 Mg Tab, 1 TAB PO DAILY, #30 TAB 5 Refills Prov:MARVEL BELL MD 04/25/23 Clopidogrel Bisulfate (CLOPIDOGREL) 75 Mg Tab, 75 MG PO DAILY for 30 Days, #30 TAB Prov:MARVEL BELL MD 04/25/23 Atorvastatin Calcium (ATORVASTATIN CALCIUM) 20 Mg Tab, 40 MG PO HS for 30 Days, #60 TAB Prov:MARVEL BELL MD 04/25/23 Aspirin (Aspirin Low Dose) 81 Mg Tab, 81 MG PO DAILY for 30 Days, #30 TAB Prov:MARVEL BELL MD 04/25/23 Reported Medications Gabapentin (Gabapentin) 300 Mg Cap, 300 MG PO TID for 30 Days, MG 04/21/23 Hydrocodone-Acetaminophen (Hydrocodone Bitartrate/AC 10-325 mg) 1 Tab Tab, 1 TAB PO BID, TAB 04/21/23 Atorvastatin Calcium (ATORVASTATIN CALCIUM) 20 Mg Tab, 1 TAB PO DAILY, #30 TAB 5 Refills 04/21/23 Metoprolol Tartrate (Metoprolol Tartrate) 100 Mg Tab, 100 MG PO BID for 30 Days, MG 04/21/23 Losartan Potassium (Losartan Potassium) 100 Mg Tab, 100 MG PO DAILY for 30 Days, MG 04/21/23 Torsemide Injection (Torsemide) 20 Mg Tab, 20 MG PO DAILY, TAB 04/21/23 Current Medications Current Medications Medications (Trade) Dose Ordered Sig/Reno Route PRN Reason Start Time Stop Time Status Last Admin Atorvastatin Calcium (Lipitor) 40 mg HS PO 12/26/24 22:00 UNV Acetaminophen (Tylenol Tablet) 650 mg Q6HP PRN PO MILD PAIN (1-3 PAIN SCALE) 12/26/24 13:15 UNV Nitroglycerin (Ntrostat Sublingual) 0.4 mg Q5MINP PRN SL FOR CHEST PAIN 12/26/24 13:15 UNV Ondansetron HCl (Zofran) 4 mg Q4HP PRN IV NAUSEA / VOMITING 12/26/24 13:15 UNV Nitroglycerin (Ntrostat Sublingual) 0.4 mg Q5MINP PRN SL FOR CHEST PAIN 12/26/24 13:15 UNV Morphine Sulfate 2 mg Q30M PRN IV FOR CHEST PAIN 12/26/24 13:15 UNV Family History: Cardiovascular disease G8 MOTHER G8 FATHER G8 SISTER Glaucoma G8 MOTHER Hypertension G8 SISTER Review of Systems All 12 item review of systems reviewed with the patient nonsignificant except what is mentioned in the history of present illness H&P Exam Vital Signs/I&O Vital Sign Date Time Temp Pulse Resp B/P (MAP) Pulse Ox O2 Delivery O2 Flow Rate FiO2 12/26/24 11:53 165/108 12/26/24 11:41 97.6 85 16 96 97.6 12/26/24 11:41 Room Air Physical Exam Patient is awake alert appeared in no acute distress Lungs clear to auscultation bilaterally Cardiac exam regular rate and rhythm GI soft nontender was normal Extremity 1+ edema Neuro nonfocal Labs/Diagnostic Data Labs/Diagnostic Data Laboratory Tests Test 12/26/24 11:11 12/26/24 11:05 Range/Units White Blood Count 11.6 H 4.4-10.8 10^3/uL Red Blood Count 4.20 4.0-5.20 10^6/uL Hemoglobin 13.0 12.2-16.2 g/dL Hematocrit 38.6 36.0-46.0 % Mean Corpuscular Volume 92.0 80.0-100.0 fL Mean Corpuscular Hemoglobin 30.9 28.0-32.0 pg Mean Corpuscular Hemoglobin Concent 33.6 32.0-36.0 g/dL Red Cell Distribution Width 15.0 H 11.8-14.3 % Platelet Count 500 H 140-450 10^3/uL Mean Platelet Volume 6.9 6.9-10.8 fL Neutrophils (%) (Auto) 67.4 37.0-80.0 % Lymphocytes (%) (Auto) 24.4 10.0-50.0 % Monocytes (%) (Auto) 5.2 0.0-12.0 % Eosinophils (%) (Auto) 2.5 0.0-7.0 % Basophils (%) (Auto) 0.5 0.0-2.0 % Neutrophils # (Auto) 7.8 1.6-8.6 10 ^3/uL Lymphocytes # (Auto) 2.8 0.4-5.4 10 ^3/uL Monocytes # (Auto) 0.6 0-1.3 10 ^3/uL Eosinophils # (Auto) 0.3 0-0.8 10 ^3/uL Basophils # (Auto) 0.1 0-0.2 10 ^3/uL Nucleated Red Blood Cells 0.0 % Sodium Level 142 136-145 mmol/L Potassium Level 4.2 3.5-5.1 mmol/L Chloride Level 107 98-107 mmol/L Carbon Dioxide Level 25 20-31 mmol/L Anion Gap 10 5-15 Blood Urea Nitrogen 49 H 9-23 mg/dL Creatinine 5.17 H 0.550-1.02 mg/dL Glomerular Filtration Rate Calc 10 >90 mL/min BUN/Creatinine Ratio 9.5 L 10.0-20.0 Serum Glucose 108 H 74-106 mg/dL Calcium Level 10.9 H 8.7-10.4 mg/dL POC Glucose 121 H 70-106 mg/dl Assessment Chronic Kidney Disease stage 5 now end-stage renal disease requiring initiation of hemodialysis Chronic kidney disease stage 5 followed in my clinic Hypertensive urgency History of CVA Hyperlipidemia Hypothyroidism Recommendations Consents for tunneled hemodialysis catheter initiation of hemodialysis Radiology consult for tunneled IJ hemodialysis catheter Hemodialysis after catheter placement Blood pressure control Renal diet Furosemide 40 mg IV daily guest services director for outpatient hemodialysis chair time at [facility] We will continue to follow Patient seen and examined by myself. I discussed my plan of care with the patient and primary nurse at the bedside I would like to thank Shannan for the consult, will follow Plan discussed with: Patient RUTHIE BAEZ MD Dec 26, 2024 14:00
[2024-12-26 14:23] LABS: Magnesium 2.4 mg/dL (1.6-2.6)
[2024-12-26 14:25] LABS: Phosphorus 5.3 mg/dL (2.4-5.1)
[2024-12-26 15:08] LABS: INR 0.96 (0.9-1.15); Partial Thromboplastin Time 28.2 SEC (24.5-34.5); Prothrombin Time 10.2 sec (9.3-11.8)
[2024-12-26] MEDS ORDERED: IPRATROPIUM BROM 0.5 MG/2.5ML INH SOL NEB PRN (15:15)
[2024-12-26] MEDS ORDERED: ALBUTEROL SULF 2.5 MG/0.5ML(0.5%) NEB SOLN NEB PRN (15:15)
[2024-12-26 15:24] VITALS: BP 162/108; PULSE 85; RESP 16; O2SAT 98
[2024-12-26] MEDS: NICOTINE 21MG/24 HR TOPICAL PATCH TD ONE (16:24)
[2024-12-26] MEDS: FUROSEMIDE 40 MG/4 ML VIAL IV SCH (16:24)
[2024-12-26] MEDS: MORPHINE SULFATE INJ 2 MG/ml SYRG IV PRN (16:25)
[2024-12-26] MEDS: ONDANSETRON HCL 4 MG/2 ML VIAL IV PRN (16:26)
[2024-12-26 18:05] LABS: Protein, Urine 81.3 mg/dL (1-14)
[2024-12-26 18:08] LABS: Creatinine, Urine 54.37 mg/dL (30.0-125.0); Creatinine, Urine 55.49 mg/dL (30.0-125.0); Urine Protein/Creatinine Ratio 1.47
[2024-12-26 18:16] LABS: Urine Amorphous Crystal FEW /hpf (None Seen); Urine Bacteria FEW /hpf (None Seen); Urine Blood Negative /uL (Negative); Urine Clarity Turbid (Clear); Urine Color Colorless (Yellow); Urine Protein, UAD 1+ (Negative); Urine Squamous Epithelial Cell MOD /hpf (<5); Urine Urobilinogen Normal (Negative); Urine WBC 8 /HPF (0-5)
[2024-12-26 19:30] VITALS: PULSE 96; RESP 18; O2SAT 96
[2024-12-26] MEDS: hydrALAZINE HCL 20 MG/ML VL ONE (20:55)
[2024-12-26] MEDS ORDERED: GABAPENTIN 400 MG CAP PO SCH (22:00)
[2024-12-26] MEDS: hydrALAZINE HCL 25 MG TAB ONE (22:29)
[2024-12-26] MEDS: hydrALAZINE HCL 25 MG TAB PO SCH (22:29)
[2024-12-26] MEDS: ATORVASTATIN 20 MG TAB PO SCH (22:29)
[2024-12-26] MEDS: NIFEdipine ER 30 MG TAB PO ONE (22:52)
[2024-12-26] MEDS: METOPROLOL TARTRATE 25 MG TAB ONE (22:52)
[2024-12-26] MEDS: CARVEDILOL 12.5 MG TAB PO SCH (22:54)
[2024-12-26] MEDS: NIFEdipine 10 MG CAP PO SCH (22:54)
[2024-12-26] MEDS: CARVEDILOL 12.5 MG TAB ONE (22:55)
[2024-12-26] MEDS: METOPROLOL TARTRATE 50 MG TAB PO SCH (22:55)
[2024-12-26] MEDS: GABAPENTIN 300 MG CAP PO SCH (22:56)
[2024-12-26] MEDS: GABAPENTIN 300 MG CAP ONE (22:58)
[2024-12-27] VITALS (14 sets, daily range): BP systolic 140–173; BP diastolic 86–122; PULSE 81–96; RESP 12–17; TEMP 97.8–98.4; O2SAT 95–100
[2024-12-27] MEDS: HYDROcodone-ACET 5/325MG TAB PO PRN (03:08)
[2024-12-27] MEDS: hydrALAZINE HCL 20 MG/ML VL IV PRN (03:08)
[2024-12-27] MEDS: LEVOTHYROXINE SODIUM 112 MCG TAB PO SCH (06:02)
[2024-12-27] MEDS: PANTOPRAZOLE 40 MG TAB PO SCH (06:02)
[2024-12-27 06:54] LABS: Basophils # (auto) 0.1 10 ^3/uL (0-0.2); Eosinophils # (auto) 0.3 10 ^3/uL (0-0.8); Hematocrit 36.9 % (36.0-46.0); Hemoglobin 12.2 g/dL (12.2-16.2); Lymphocytes # (auto) 3.5 10 ^3/uL (0.4-5.4); Lymphocytes % (auto) 24.1 % (10.0-50.0); Mean Corpuscular Hemoglobin 30.8 pg (28.0-32.0); Mean Corpuscular Hgb Conc. 33.1 g/dL (32.0-36.0); Mean Corpuscular Volume 92.9 fL (80.0-100.0); Monocytes # (auto) 0.9 10 ^3/uL (0-1.3); Monocytes % (auto) 6.6 % (0.0-12.0); Neutrophils # (auto) 9.5 10 ^3/uL (1.6-8.6); Neutrophils % (auto) 66.3 % (37.0-80.0); Nucleated Red Blood Cells % 0.1 %; Platelet Count (auto) 467 10^3/uL (140-450); Red Blood Cells 3.97 10^6/uL (4.0-5.20); Red Cell Distribution Width 14.8 % (11.8-14.3); White Blood Cell 14.4 10^3/uL (4.4-10.8)
[2024-12-27 07:16] LABS: Potassium 4.1 mmol/L (3.5-5.1); Sodium 140 mmol/L (136-145)
[2024-12-27 07:17] LABS: Anion Gap 12 (5-15); Carbon Dioxide 20 mmol/L (20-31)
[2024-12-27 07:18] LABS: Chloride 108 mmol/L (98-107)
[2024-12-27 07:22] LABS: BUN/Creatinine Ratio 10.1 (10.0-20.0); Glucose 98 mg/dL (74-106)
[2024-12-27 07:23] LABS: LDL Cholesterol 72 mg/dL (< 100); Magnesium 2.4 mg/dL (1.6-2.6)
[2024-12-27 07:24] LABS: Cholesterol 140 mg/dL (< 200)
[2024-12-27 07:29] LABS: Blood Urea Nitrogen 49 mg/dL (9-23); HDL Cholesterol 34 mg/dL (40-59); Triglycerides 192 mg/dL (< 150)
[2024-12-27] MEDS: cloNIDine HCL 0.1 MG TAB PO SCH (08:00)
[2024-12-27] MEDS: MIDAZOLAM HCL 2MG/2ML 2ml VIAL (1mg/ml) ONE (08:33)
[2024-12-27] MEDS: LIDOCAINE 2%HCL (LOCAL ANESTH.) INJ 20ML MDV ONE (08:33)
[2024-12-27] MEDS: fentaNYL CITRATE 100 MCG/2 ML VL ONE (08:33)
[2024-12-27] MEDS: HEPARIN SODIUM (PORCINE) 5000 UNITS/ML 1ML VIAL ONE (08:40)
[2024-12-27] MEDS: ceFAZolin 1GM/50ML 50 ML IV ONE (08:46)
--- NOTE | 2024-12-27 09:03 | DVH ---
CHEST RADIOGRAPH Indication: pre procedure chest xray Technique: Single frontal view of the chest was obtained Comparison: None FINDINGS: The cardiac silhouette is borderline enlarged. The lungs demonstrate no pulmonary airspace consolidat ion. The pulmonary vasculature is unremarkable. There is no pleural effusion.. There is no pneumothor ax. IMPRESSION: Borderline cardiomegaly. No pulmonary airspace consolidation.
--- NOTE | 2024-12-27 09:40 | DVH ---
XY Insertion of Venous Cath, HISTORY: HD CATH PROCEDURE: Informed consent was obtained. The patient was placed supine on the interventional table. 1 gram of ancef was given IV. A limited localization ultrasound of the right neck base was obtained. The right neck base and upper chest were prepped with chlorhexidine which was allowed to dry and drap ed in the usual sterile fashion. Time out was performed. IV sedation was administered. The skin and t he soft tissues were infiltrated with 1% Lidocaine . With real-time ultrasound guidance, the internal jugular vein was accessed with a micropuncture kit, and an image documenting patency was recorded to PACS. A subcutaneous tunneled tract was created from the right upper chest to the venotomy site. A 1 4.5 [place] Path, 19 cm long hemodialysis catheter was advanced through the tunneled tract. Fluoroscopy was used to advance a guidewire through the internal jugular vein into the inferior vena cava. Following serial dilatation, a 15 [place] peel-away sheath was introduced, though which was adva nced the catheter into the right atrium. The catheter tip position was confirmed with fluoroscopy. Th ere was satisfactory flow in both lumens. The catheter lumens were flushed with saline and heparin wa s left indwelling in the catheter. A post-procedure image of the chest was obtained. The neck incisio n site was closed and dressed sterilely. The catheter was sutured at the skin surface and exit site a lso dressed sterilely. No immediate complication was identified. Air Kerma 14 mGy FLUOROSCOPY TIME: 0.9 minutes. SEDATION: Dr. Zaira Clay was personally responsible for the administration of moderate sedation during the procedure performed, including the use of an independent trained observer who had no other duties during the procedure. The drugs utilized were IV fentanyl and versed (see nursing log for details). The total time of supervision by the attending physician was approximately 30 minutes. FINDINGS: Widely patent right IJV. Post procedure image demonstrates smooth course of the hemodialysi s catheter with the tip in the right atrium. IMPRESSION: Placement of 14.5 [place] Path, 19 cm long hemodialysis catheter through right internal jugular vein. Plan: Please contact IR for removal when no longer needed.
[2024-12-27] MEDS ORDERED: TORSEMIDE 20 MG TAB PO SCH ×2 (10:00)
[2024-12-27 10:24] LABS: Hepatitis B Surface Antigen Negative (Negative); Hepatitis C Antibody Negative (Negative)
--- NOTE | 2024-12-27 11:26 | DVHPN2 ---
Reviewed: Care Plan, H&P, Labs, Medications, Previous Orders, Radiology Changes from previous H/P or p: No Changes General: Per HPI Eyes: No Pain, No Vision change, No Conjunctivae inflammation, No Eyelid inflammation, No Other, No Redness ENT: No Ear pain, No Ear discharge, No Nose pain, No Nose discharge, No Nose congestion, No Mouth pain, No Mouth swelling, No Throat pain, No Throat swelling, No Other Cardiovascular: No Chest Pain, No Palpitations, No Orthopnea, No Paroxysmal Noc. Dyspnea, No Edema, No Lt Headedness, No Other Respiratory: No Cough, No Dry, No Shortness of breath, No SOB with excertion, No Wheezing, No Hemoptysis, No Pleuritic Pain, No Sputum, No Other Gastrointestinal: No Nausea, No Vomiting, No Abdominal Pain, No Diarrhea, No Constipation, No Melena, No Hematochezia, No Other Genitourinary: No Dysuria, No Frequency, No Incontinence, No Hematuria, No Retention, No Other Musculoskeletal: No other, No neck pain, No shoulder pain, No arm pain, No back pain, No hand pain, No leg pain, No foot pain Skin: No Rash, No Lesions, No Jaundice, No Bruising, No Other Objective Vitals Vital Signs Date Time Temp Pulse Resp B/P (MAP) Pulse Ox O2 Delivery O2 Flow Rate FiO2 12/27/24 09:58 86 16 173/100 (124) 100 12/27/24 09:31 98.3 98.3 12/27/24 07:09 Room Air* 0 21 Intake/Output Intake and Output 12/27/24 07:00 Intake Total 0 ml Balance 0 ml Intake Oral 0 ml General Appearance: Alert, Oriented X3, Cooperative Cardiovascular: Regular rate, Normal S1, Normal S2 Abdomen: Normal bowel sounds Medications Current Medications Medications Dose Ordered Sig/[place] Route Start Time Stop Time Status Last Admin Dose Admin Atorvastatin Calcium 40 mg HS PO 12/26/24 22:00 12/26/24 22:29 40 MG Acetaminophen 650 mg Q6HP PRN PO 12/26/24 13:15 Ondansetron HCl 4 mg Q4HP PRN IV 12/26/24 13:15 12/26/24 16:26 4 MG Nitroglycerin 0.4 mg Q5MINP PRN SL 12/26/24 13:15 Cancel Morphine Sulfate 2 mg Q30M PRN IV 12/26/24 13:15 Cancel Furosemide 40 mg DAILY IV 12/26/24 14:00 12/26/24 16:24 40 MG Multivit/Ca Carb/ B Cmplx/FA/Prenat 1 tab DAILY PO 12/27/24 18:00 Nitroglycerin 0.4 mg Q5MINP PRN SL 12/26/24 15:15 Morphine Sulfate 2 mg Q30M PRN IV 12/26/24 15:15 12/26/24 22:30 2 MG Nicotine 1 patch DAILY TD 12/27/24 10:00 Albuterol 2.5 mg Q4HPRN PRN NEB 12/26/24 15:15 Ipratropium [place] 0.5 mg Q4HPRN PRN NEB 12/26/24 15:15 Aspirin 81 mg DAILY PO 12/27/24 10:00 Metoprolol Tartrate 100 mg BID PO 12/26/24 22:00 12/26/24 22:55 100 MG Clonidine HCl 0.3 mg DAILY@BREAKFAST PO 12/27/24 08:00 Gabapentin 400 mg TID PO 12/26/24 22:00 UNV Nifedipine 30 mg Q12HR PO 12/26/24 22:00 12/26/24 22:54 30 MG Carvedilol 12.5 mg Q12HR PO 12/26/24 22:00 12/26/24 22:54 12.5 MG Levothyroxine Sodium 112 mcg QAM@0600 PO 12/27/24 06:00 12/27/24 06:02 112 MCG Amlodipine Besylate 10 mg DAILY PO 12/27/24 10:00 Hydralazine HCl 25 mg Q8HR PO 12/26/24 22:00 12/27/24 06:02 25 MG Pantoprazole Sodium 40 mg DAILY@0600 PO 12/27/24 06:00 12/27/24 06:02 40 MG Torsemide 20 mg DAILY PO 12/27/24 10:00 Hold Gabapentin 300 mg BID PO 12/26/24 22:00 12/26/24 22:56 300 MG Hydralazine HCl 10 mg Q6HP PRN IV 12/27/24 03:00 12/27/24 03:08 10 MG Acetaminophen/ Hydrocodone Bitart 1 tab Q6HPRN PRN PO 12/27/24 03:00 12/27/24 03:08 1 TAB Laboratory Results Laboratory Tests 12/27/24 06:33 Chemistry Test 12/27/24 06:33 Calcium Level 10.0 mg/dL (8.7-10.4) Magnesium Level 2.4 mg/dL (1.6-2.6) Coagulation Test 12/26/24 14:44 Prothrombin Time 10.2 sec (9.3-11.8) Prothrombin Time INR 0.96 (0.9-1.15) Activated Partial Thromboplast Time 28.2 SEC (24.5-34.5) Lipid panel Test 12/27/24 06:33 Cholesterol Level 140 mg/dL (< 200) HDL Cholesterol 34 mg/dL (40-59) L Triglycerides Level 192 mg/dL (< 150) H Urinalysis Test 12/26/24 17:50 Urine Color Colorless (Yellow) Urine Clarity Turbid (Clear) H Urine pH 6.0 (5.0-9.0) Urine Specific [place] 1.010 (1.001-1.035) Urine Protein 1+ (Negative) H Urine Ketones Negative (Negative) Urine Blood Negative /uL (Negative) Urine Nitrite Negative (Negative) Urine Bilirubin Negative (Negative) Urine Urobilinogen Normal mg/dL (Negative) Urine Leukocyte Esterase Negative /uL (Negative) Urine RBC 7 /hpf (0 - 4) Urine Microscopic WBC 8 /HPF (0-5) H Urine Squamous Epithelial Cells Mod /hpf (<5) Urine Amorphous Crystals Few /hpf (None Seen) Urine Bacteria Few /hpf (None Seen) H Urine Creatinine 55.49 mg/dL (30.0-125.0) Urine Protein/Creatinine Ratio 1.47 Urine Sodium 82 mmol/L (40-220) Urine Glucose Normal mg/dL (Normal) Urine Total Protein 81.3 mg/dL (1-14) H Labs and/or images reviewed: Labs reviewed by me, Image(s) reviewed by me Assessment/Plan Assessment/Plan 39-year-old female past medical history anxiety CK D CVA hyperlipidemia hypertension hypothyroidism surgical history septal deviation surgery endometriosis gallbladder surgery bilateral arm surgery carpal tunnel surgery chief complaint patient states she went to see Dr. Hernandez today and he recommended that she comes in to get dialysis started. Since patient is having symptoms she states she feels some shortness of the breath but no chest pain and some back pain. Patient states she has been taking her meds as prescribed but she denies any headache dizziness no abdominal pain no vomiting. When evaluating patient's labs and imaging in the ED looks like hydralazine was given white count was 11.6 creatinine is 5.17 and 69 potassium was normal glucose was 108 calcium was 10.9 otherwise unremarkable. Renal was already called by the ER team. With these findings we will admit for pending dialysis in placement of PermCath for procedure to be completed acute esrd stage [address] Hernandez consulted sent pt here for HD acute leukocytosis tobacco dependence anxiety ckf cva hld htn hypothyroidism started on HD, pending placement Plan discussed with: Patient Date of Service: Dec 27, 2024 Billing Provider: DUKE TYSON DO Common Visit Codes: [id number] INP/OBS CARE(HIGH) DUKE TYSON DO Dec 27, 2024 11:26
[2024-12-27] MEDS: NICOTINE 21MG/24 HR TOPICAL PATCH TD SCH (16:44)
[2024-12-27] MEDS: ASPirin 81 mg TAB PO SCH (16:45)
[2024-12-27] MEDS: amLODIPine BESYLATE 5 MG TAB PO SCH (16:48)
[2024-12-27] MEDS: B-COMPLEX W/ C & FOLIC ACID(NEPHROVITE TAB) PO SCH (17:09)
--- NOTE | 2024-12-27 18:59 | DVHPN2 ---
Progress Note Date Seen: Dec 27, 2024 Medical Necessity Reason Pt with a Central, PICC or Fol: No Subjective Patient reports: No new complaints Review of Systems: HEENT:Normal, CVS:Normal, RESPIRATORY:Normal, GI:Normal, :Normal, MSK:Normal, NEURO:Normal Objective vital signs Vital Sign Date Time Temp Pulse Resp B/P (MAP) Pulse Ox O2 Delivery O2 Flow Rate FiO2 12/27/24 17:46 91 115/87 12/27/24 17:00 98.4 16 98 98.4 12/27/24 08:30 Room Air* 0 21 Total Intake and Output 12/26/24 12/26/24 12/27/24 15:00 23:00 07:00 Intake Total 0 ml Balance 0 ml medications Current Medications Medications Dose Ordered Sig/[place] Route Start Time Stop Time Status Last Admin Dose Admin Atorvastatin Calcium 40 mg HS PO 12/26/24 22:00 12/26/24 22:29 40 MG Acetaminophen 650 mg Q6HP PRN PO 12/26/24 13:15 Ondansetron HCl 4 mg Q4HP PRN IV 12/26/24 13:15 12/26/24 16:26 4 MG Nitroglycerin 0.4 mg Q5MINP PRN SL 12/26/24 13:15 Cancel Morphine Sulfate 2 mg Q30M PRN IV 12/26/24 13:15 Cancel Furosemide 40 mg DAILY IV 12/26/24 14:00 12/27/24 16:49 40 MG Multivit/Ca Carb/ B Cmplx/FA/Prenat 1 tab DAILY PO 12/27/24 18:00 12/27/24 17:09 1 TAB Nitroglycerin 0.4 mg Q5MINP PRN SL 12/26/24 15:15 Morphine Sulfate 2 mg Q30M PRN IV 12/26/24 15:15 12/26/24 22:30 2 MG Nicotine 1 patch DAILY TD 12/27/24 10:00 12/27/24 16:44 1 PATCH Albuterol 2.5 mg Q4HPRN PRN NEB 12/26/24 15:15 Ipratropium [place] 0.5 mg Q4HPRN PRN NEB 12/26/24 15:15 Aspirin 81 mg DAILY PO 12/27/24 10:00 12/27/24 16:45 81 MG Metoprolol Tartrate 100 mg BID PO 12/26/24 22:00 12/27/24 16:48 100 MG Clonidine HCl 0.3 mg DAILY@BREAKFAST PO 12/27/24 08:00 Gabapentin 400 mg TID PO 12/26/24 22:00 UNV Nifedipine 30 mg Q12HR PO 12/26/24 22:00 12/27/24 16:47 30 MG Carvedilol 12.5 mg Q12HR PO 12/26/24 22:00 12/27/24 16:45 12.5 MG Levothyroxine Sodium 112 mcg QAM@0600 PO 12/27/24 06:00 12/27/24 06:02 112 MCG Amlodipine Besylate 10 mg DAILY PO 12/27/24 10:00 12/27/24 16:48 10 MG Hydralazine HCl 25 mg Q8HR PO 12/26/24 22:00 12/27/24 06:02 25 MG Pantoprazole Sodium 40 mg DAILY@0600 PO 12/27/24 06:00 12/27/24 06:02 40 MG Torsemide 20 mg DAILY PO 12/27/24 10:00 Hold Gabapentin 300 mg BID PO 12/26/24 22:00 12/27/24 16:48 300 MG Hydralazine HCl 10 mg Q6HP PRN IV 12/27/24 03:00 12/27/24 03:08 10 MG Acetaminophen/ Hydrocodone Bitart 1 tab Q6HPRN PRN PO 12/27/24 03:00 12/27/24 17:09 1 TAB laboratory and microbiology Laboratory Tests 12/27/24 06:33 Test 12/27/24 06:33 Range/Units Serum Glucose 98 74-106 mg/dL Problem List/Assessment/Plan Problem List/Assessment/Plan Chronic Kidney Disease stage 5 now end-stage renal disease requiring initiation of hemodialysis Chronic kidney disease stage [address] [facility] Hypertensive urgency History of CVA Hyperlipidemia Hypothyroidism recs HD today Chair time has been arranged with [facility] dialysis Monday at 5:30 p.m. Plan discussed with: Patient ATUL ORTIZ MD Dec 27, 2024 18:59
[2024-12-27] MEDS: MORPHINE SULFATE INJ 2 MG/ml SYRG IV PRN (21:51)
[2024-12-28] VITALS (8 sets, daily range): BP systolic 125–164; BP diastolic 75–118; PULSE 80–86; RESP 16–17; TEMP 97.7–98.8; O2SAT 94–100
--- NOTE | 2024-12-28 08:21 | ECG ---
[facility] Test Date: 2024-12-26 Test Time: 11:07:45 Pat Name: NANNETTE TERRELL Department: ER Room: [facility]0T A Gender: F Standards Analyst: ER : 1985 Requested By: LORNA BUCKLEY Order Number: [id number] Reading MD: Melquiades Chandler Measurements Intervals [place] Rate: 82 P: 34 MI: 175 QRS: -16 QRSD: 99 T: 73 QT: 409 QTc: 478 Interpretive Statements Sinus rhythm Abnormal R-wave progression, early transition Left ventricular hypertrophy Consider inferior infarct Electronically Signed On 12-28-2024 20:07:13 PDT by Melquiades Chandler Please click the below link to view image of tracing.
[2024-12-28] MEDS: HYDROcodone-ACET 5/325MG TAB PO PRN (10:45)
[2024-12-28] MEDS: SODIUM CHL 0.9% 1000 ML BAG XX ONE (11:02)
[2024-12-28 11:23] LABS: Basophils # (auto) 0 10 ^3/uL (0-0.2); Basophils % (auto) 0.4 % (0.0-2.0); Eosinophils # (auto) 0.2 10 ^3/uL (0-0.8); Eosinophils % (auto) 2.6 % (0.0-7.0); Hematocrit 37.4 % (36.0-46.0); Hemoglobin 12.8 g/dL (12.2-16.2); Lymphocytes # (auto) 2.6 10 ^3/uL (0.4-5.4); Lymphocytes % (auto) 26.5 % (10.0-50.0); Mean Corpuscular Hemoglobin 31.7 pg (28.0-32.0); Mean Corpuscular Hgb Conc. 34.3 g/dL (32.0-36.0); Mean Corpuscular Volume 92.5 fL (80.0-100.0); Monocytes # (auto) 0.8 10 ^3/uL (0-1.3); Neutrophils # (auto) 6.1 10 ^3/uL (1.6-8.6); Neutrophils % (auto) 62.5 % (37.0-80.0); Platelet Count (auto) 466 10^3/uL (140-450); Red Blood Cells 4.04 10^6/uL (4.0-5.20); Red Cell Distribution Width 14.9 % (11.8-14.3); White Blood Cell 9.7 10^3/uL (4.4-10.8)
--- NOTE | 2024-12-28 16:47 | DVHDS2 ---
Discharge Summary Date of Admission Dec 26, 2024 at 13:01 Date of Discharge: Dec 28, 2024 Labs/Diagnostic Data: Laboratory Results Test 12/28/24 11:45 12/28/24 10:56 12/27/24 06:33 12/26/24 17:50 POC Glucose 90 mg/dl (70-106) White Blood Count 9.7 10^3/uL (4.4-10.8) Red Blood Count 4.04 10^6/uL (4.0-5.20) Hemoglobin 12.8 g/dL (12.2-16.2) Hematocrit 37.4 % (36.0-46.0) Mean Corpuscular Volume 92.5 fL (80.0-100.0) Mean Corpuscular Hemoglobin 31.7 pg (28.0-32.0) Mean Corpuscular Hemoglobin Concent 34.3 g/dL (32.0-36.0) Red Cell Distribution Width 14.9 % (11.8-14.3) Platelet Count 466 10^3/uL (140-450) Mean Platelet Volume 7.2 fL (6.9-10.8) Neutrophils (%) (Auto) 62.5 % (37.0-80.0) Lymphocytes (%) (Auto) 26.5 % (10.0-50.0) Monocytes (%) (Auto) 8.0 % (0.0-12.0) Eosinophils (%) (Auto) 2.6 % (0.0-7.0) Basophils (%) (Auto) 0.4 % (0.0-2.0) Neutrophils # (Auto) 6.1 10 ^3/uL (1.6-8.6) Lymphocytes # (Auto) 2.6 10 ^3/uL (0.4-5.4) Monocytes # (Auto) 0.8 10 ^3/uL (0-1.3) Eosinophils # (Auto) 0.2 10 ^3/uL (0-0.8) Basophils # (Auto) 0 10 ^3/uL (0-0.2) Nucleated Red Blood Cells 0.0 % Sodium Level 140 mmol/L (136-145) Potassium Level 4.1 mmol/L (3.5-5.1) Chloride Level 108 mmol/L (98-107) Carbon Dioxide Level 20 mmol/L (20-31) Anion Gap 12 (5-15) Blood Urea Nitrogen 49 mg/dL (9-23) Creatinine 4.84 mg/dL (0.550-1.02) Glomerular Filtration Rate Calc 11 mL/min (>90) BUN/Creatinine Ratio 10.1 (10.0-20.0) Serum Glucose 98 mg/dL (74-106) Calcium Level 10.0 mg/dL (8.7-10.4) Magnesium Level 2.4 mg/dL (1.6-2.6) Troponin I High Sensitivity 8 ng/L (</=34) Triglycerides Level 192 mg/dL (< 150) Cholesterol Level 140 mg/dL (< 200) LDL Cholesterol 72 mg/dL (< 100) HDL Cholesterol 34 mg/dL (40-59) Urine Color Colorless (Yellow) Urine Clarity Turbid (Clear) Urine pH 6.0 (5.0-9.0) Urine Specific [place] 1.010 (1.001-1.035) Urine Protein 1+ (Negative) Urine Ketones Negative (Negative) Urine Blood Negative /uL (Negative) Urine Nitrite Negative (Negative) Urine Bilirubin Negative (Negative) Urine Urobilinogen Normal mg/dL (Negative) Urine Leukocyte Esterase Negative /uL (Negative) Urine RBC 7 /hpf (0 - 4) Urine Microscopic WBC 8 /HPF (0-5) Urine Squamous Epithelial Cells Mod /hpf (<5) Urine Amorphous Crystals Few /hpf (None Seen) Urine Bacteria Few /hpf (None Seen) Urine Creatinine 55.49 mg/dL (30.0-125.0) Urine Protein/Creatinine Ratio 1.47 Urine Sodium 82 mmol/L (40-220) Urine Glucose Normal mg/dL (Normal) Urine Total Protein 81.3 mg/dL (1-14) Test 12/26/24 14:44 12/26/24 11:11 Prothrombin Time 10.2 sec (9.3-11.8) Prothrombin Time INR 0.96 (0.9-1.15) Activated Partial Thromboplast Time 28.2 SEC (24.5-34.5) Hemoglobin A1c 4.7 % A1C (<5.7) Uric Acid 9.9 mg/dL (3.1-7.8) Phosphorus Level 5.3 mg/dL (2.4-5.1) B-Type Natriuretic Peptide 28.38 pg/mL (0-100) Thyroid Stimulating Hormone (TSH) 0.42 uIU/mL (0.55-4.78) Parathyroid Hormone (Intact) 53.8 pg/mL (18.4-80.1) Hepatitis B Surface Antigen Negative (Negative) Hepatitis C Antibody Negative (Negative) Other Laboratory Tests 12/28/24 10:56 12/27/24 06:33 Brief Hx & Hospital Course: 39-year-old female past medical history anxiety CK D CVA hyperlipidemia hypertension hypothyroidism surgical history septal deviation surgery endometriosis gallbladder surgery bilateral arm surgery carpal tunnel surgery chief complaint patient states she went to see Dr. Hernandez today and he recommended that she comes in to get dialysis started. Since patient is having symptoms she states she feels some shortness of the breath but no chest pain and some back pain. Patient states she has been taking her meds as prescribed but she denies any headache dizziness no abdominal pain no vomiting. When evaluating patient's labs and imaging in the ED looks like hydralazine was given white count was 11.6 creatinine is 5.17 and 69 potassium was normal glucose was 108 calcium was 10.9 otherwise unremarkable. Renal was already called by the ER team. With these findings we will admit for pending dialysis in placement of PermCath for procedure to be completed acute esrd stage [address] Hernandez consulted sent pt here for HD acute leukocytosis tobacco dependence anxiety ckf cva hld htn hypothyroidism pt has chair time sent to home with self care Condition at Discharge: Guarded Final Diagnosis/Problems List see above Discharge Disposition: Home Discharge Instruct/Medications Diet: Cardiac 2g Na,low cholest Activity: No Restrictions, As Tolerated Discharge Statement: "Patient was advised to return to the ER or call 911 if any headaches, dizziness, shortness of breath, chest pain, abdominal pain, bleeding, fevers, or worsening of medical condition. Patient was counseled about treatment plan, medications, possible side effects, patientverbalized understanding. All questions were answered to the best of my ability. This discharge took greater then 30 minutes in planning, reviewing documentation, counseling the patient, and discussing with other team members." ASSESSMENT ASSESSMENT Assessment Date of Service: Dec 28, 2024 Billing Provider: DUKE TYSON DO Common Visit Codes: [id number] INP/OBS CARE(HIGH), [id number]/[id number] DISCH DAY >30min DUKE TYSON DO Dec 28, 2024 16:47
--- NOTE | 2024-12-28 18:07 | DVHPN2 ---
Progress Note Date Seen: Dec 28, 2024 Medical Necessity Reason Pt with a Central, PICC or Fol: No Subjective Patient reports: No new complaints, Feels better Review of Systems: Deferred Objective vital signs Vital Sign Date Time Temp Pulse Resp B/P (MAP) Pulse Ox O2 Delivery O2 Flow Rate FiO2 12/28/24 17:18 85 12/28/24 16:44 98.3 17 146/97 (113) 99 98.3 12/28/24 07:30 Room Air* 0 21 Total Intake and Output 12/27/24 12/27/24 12/28/24 14:59 22:59 06:59 Intake Total 850 ml 1300 ml Balance 850 ml 1300 ml medications Current Medications Medications Dose Ordered Sig/[place] Route Start Time Stop Time Status Last Admin Dose Admin Atorvastatin Calcium 40 mg HS PO 12/26/24 22:00 12/27/24 21:48 40 MG Acetaminophen 650 mg Q6HP PRN PO 12/26/24 13:15 Ondansetron HCl 4 mg Q4HP PRN IV 12/26/24 13:15 12/26/24 16:26 4 MG Nitroglycerin 0.4 mg Q5MINP PRN SL 12/26/24 13:15 Cancel Morphine Sulfate 2 mg Q30M PRN IV 12/26/24 13:15 Cancel Furosemide 40 mg DAILY IV 12/26/24 14:00 12/28/24 10:29 40 MG Multivit/Ca Carb/ B Cmplx/FA/Prenat 1 tab DAILY PO 12/27/24 18:00 12/28/24 10:29 1 TAB Nitroglycerin 0.4 mg Q5MINP PRN SL 12/26/24 15:15 Morphine Sulfate 2 mg Q30M PRN IV 12/26/24 15:15 12/26/24 22:30 2 MG Nicotine 1 patch DAILY TD 12/27/24 10:00 12/27/24 16:44 1 PATCH Albuterol 2.5 mg Q4HPRN PRN NEB 12/26/24 15:15 Ipratropium [place] 0.5 mg Q4HPRN PRN NEB 12/26/24 15:15 Aspirin 81 mg DAILY PO 12/27/24 10:00 12/28/24 10:30 81 MG Metoprolol Tartrate 100 mg BID PO 12/26/24 22:00 12/28/24 10:30 100 MG Clonidine HCl 0.3 mg DAILY@BREAKFAST PO 12/27/24 08:00 Gabapentin 400 mg TID PO 12/26/24 22:00 UNV Nifedipine 30 mg Q12HR PO 12/26/24 22:00 12/27/24 21:49 30 MG Carvedilol 12.5 mg Q12HR PO 12/26/24 22:00 12/27/24 21:49 12.5 MG Levothyroxine Sodium 112 mcg QAM@0600 PO 12/27/24 06:00 12/28/24 05:54 112 MCG Amlodipine Besylate 10 mg DAILY PO 12/27/24 10:00 12/27/24 16:48 10 MG Hydralazine HCl 25 mg Q8HR PO 12/26/24 22:00 12/28/24 13:45 25 MG Pantoprazole Sodium 40 mg DAILY@0600 PO 12/27/24 06:00 12/28/24 05:54 40 MG Torsemide 20 mg DAILY PO 12/27/24 10:00 Hold Gabapentin 300 mg BID PO 12/26/24 22:00 12/28/24 10:45 300 MG Hydralazine HCl 10 mg Q6HP PRN IV 12/27/24 03:00 12/28/24 16:11 10 MG Morphine Sulfate 2 mg Q4HPRN PRN IV 12/27/24 21:15 12/28/24 14:53 2 MG Acetaminophen/ Hydrocodone Bitart 1 tab Q6HPRN PRN PO 12/27/24 21:15 12/28/24 10:45 1 TAB Examination: GENERAL:Normal, HEENT:Normal, NECK:Normal, LUNGS:Normal, CVS:Normal, ABDOMEN:Normal, MSK:Normal, SKIN:Normal, NEURO:Normal, :Normal laboratory and microbiology Laboratory Tests 12/28/24 10:56 12/27/24 06:33 Test 12/27/24 06:33 Range/Units Serum Glucose 98 74-106 mg/dL Problem List/Assessment/Plan Problem List/Assessment/Plan Chronic Kidney Disease stage 5 now end-stage renal disease requiring initiation of hemodialysis Chronic kidney disease stage [address] [facility] Hypertensive urgency History of CVA Hyperlipidemia Hypothyroidism recs HD monday Chair time has been arranged with [facility] Monday at 5:30 p.m. Plan discussed with: Patient ATUL ORTIZ MD Dec 28, 2024 18:07
== END 2024-12-28 18:17 | disposition home or self-care (01) | DRG 199 ==
LOC: ER 10:41 → OVERFLOW 13:01 → SUATTDRO 13:49 → TELE-WESTW 12-27 02:07
PROVIDERS: ADMIT Internal Medicine; ATTEND Internal Medicine
PROC: 0JH63XZ Insertion of Tunneled Vascular Access Device into Chest Subcutaneous Tissue and Fascia, Percutaneous Approach (ICD-10-PCS; principal; 2024-12-27)
PROC: 02H633Z Insertion of Infusion Device into Right Atrium, Percutaneous Approach (ICD-10-PCS; 2024-12-27)
PROC: B5181ZA Fluoroscopy of Superior Vena Cava using Low Osmolar Contrast, Guidance (ICD-10-PCS; 2024-12-27)
PROC: B548ZZA Ultrasonography of Superior Vena Cava, Guidance (ICD-10-PCS; 2024-12-27)
DX: I16.0 Hypertensive urgency (principal); N18.6 End stage renal disease; I12.0 Hypertensive chronic kidney disease with stage 5 chronic kidney disease or end stage renal disease; D72.829 Elevated white blood cell count, unspecified; E03.9 Hypothyroidism, unspecified; E78.5 Hyperlipidemia, unspecified; F41.9 Anxiety disorder, unspecified; F17.210 Nicotine dependence, cigarettes, uncomplicated; Z86.73 Personal history of transient ischemic attack (TIA), and cerebral infarction without residual deficits; Z82.49 Family history of ischemic heart disease and other diseases of the circulatory system
CPT/HCPCS: 36415; 36558; 71045; 76937; 77001; 80048; 80061; 81001; 82570; 82962; 83036; 83735; 83880; 83970; 84100; 84156; 84300; 84443; 84484; 84550; 85025; 85610; 85730; 86803; 87340; 90935; 93005; 96374; 96375; 99152; 99291; C1894; G0378; J1642; J2250; J2405